=== PATIENT | male | born 1955 | race Caucasian/White ===

== ENCOUNTER 2018-11-26 09:31 | Inpatient (IN) | payer OTHER, MEDICARE ==
[2018-11-26] MEDS ORDERED: HYDROmorphone 1 MG/ML 1 ML SYRINGE IVP STA (10:15)
--- NOTE | 2018-11-26 10:16 | ED ---
Recheck HPI - General Chief Complaint: Recheck/Abnormal Lab/Rx Stated Complaint: abn labs Time Seen by Provider: 11/26/18 09:59 Source: patient, RN notes reviewed, old records reviewed Mode of arrival: ambulatory Limitations: no limitations - History of Present Illness Initial Comments: Patient is a 63-year-old male with history of heart disease, cirrhosis, presents emergency department today with months of abnormal lab values. Patient reports his been feeling very weak, complaining of abdominal pain for the past few months. Patient reports that in September he had a stent placed within his gallbladder. He will be watched remove his gallbladder at that time however Patient was too weak to handle the open surgery. He also reports that he has a history of coronary artery disease. He reports he was supposed to have open heart surgery with bypass however they stated that he was still too weak to do that. Patient states that since being discharged from the [facility] they did remove his stent within gallbladder. Patient states that he' s also had a few episodes of paracentesis within the past few months. Patient complains of poor appetite and general fatigue. He denies any upper respiratory symptoms including cough or congestion. - Related Data Home Medications Medication Instructions Recorded Confirmed Furosemide [Lasix] 40 mg PO DAILY 11/26/18 11/26/18 Ibuprofen [Motrin] 800 mg PO TID PRN 11/26/18 11/26/18 Metoprolol Succinate [Toprol XL] 12.5 mg PO DAILY 11/26/18 11/26/18 Midodrine [ProAmatine] 5 mg PO TID 11/26/18 11/26/18 Mirtazapine [Remeron] 15 mg PO HS 11/26/18 11/26/18 Pantoprazole [Protonix] 40 mg PO BID 11/26/18 11/26/18 Pravastatin Sodium [Pravachol] 20 mg PO HS 11/26/18 11/26/18 Spironolactone 100 mg PO DAILY 11/26/18 11/26/18 Allergies Allergy/AdvReac Type Severity Reaction Status Date / Time codeine Allergy Unknown Verified 11/26/18 09:59 lidocaine Allergy Unknown Verified 11/26/18 09:59 Review of Systems ROS Statement: Those systems with pertinent positive or pertinent negative responses have been documented in the HPI. ROS Other: All systems not noted in ROS Statement are negative. Past Medical History Past Medical History: Coronary Artery Disease (CAD), Liver Disease History of Any Multi-Drug Resistant Organisms: None Reported Past Psychological History: No Psychological Hx Reported Smoking Status: Current every day smoker Past Alcohol Use History: None Reported Past Drug Use History: None Reported General Exam - General Exam Comments Initial Comments: Ill-appearing 63-year-old male. Limitations: no limitations General appearance: alert, in no apparent distress Head exam: Present: atraumatic, normocephalic, normal inspection Eye exam: Present: normal appearance, PERRL, EOMI. Absent: scleral icterus, conjunctival injection, periorbital swelling ENT exam: Present: normal exam, mucous membranes moist Neck exam: Present: normal inspection. Absent: tenderness, meningismus, lymphadenopathy Respiratory exam: Present: normal lung sounds bilaterally. Absent: respiratory distress, wheezes, rales, rhonchi, stridor Cardiovascular Exam: Present: regular rate, normal rhythm, normal heart sounds. Absent: systolic murmur, diastolic murmur, rubs, gallop, clicks GI/Abdominal exam: Present: distended, tenderness (diffuse abdominal tenderness. ), normal bowel sounds. Absent: soft, guarding, rebound, rigid Extremities exam: Present: normal inspection, full ROM, normal capillary refill. Absent: tenderness, pedal edema, joint swelling, calf tenderness Back exam: Present: normal inspection Neurological exam: Present: alert, oriented X3, CN II-XII intact Psychiatric exam: Present: normal affect, normal mood Skin exam: Present: dry, intact. Absent: warm, normal color (jaundice.), rash Course Vital Signs 11/26/18 09:36 Temperature 97.9 F Pulse Rate 105 H Respiratory 18 Rate Blood Pressure 122/77 O2 Sat by Pulse 98 Oximetry Medical Decision Making - Medical Decision Making Patient is a 63-year-old male with a history of cirrhosis presents emergency department today for generalized weakness fatigue abdominal pain and distention for the past few days. [facility] and they [facility] labs. They sent the Patient in today for abnormal lab values including elevated white blood cell count. Lab work was repeated this morning. White blood cell count is elevated 23,000. Patient has evidence of dehydration BUN of 48 crit any 1.53. We did proceed with a computed tomography scan without contrast due to patient' s worsening kidney function. Patient's computed tomography scan does show moderate amount of ascites and hepatosplenomegaly. Had paracentesis but not in the recent past.at this time and concern for SBP with patient's chills diffuse abdominal pain and moderate amount ascites. He was given 1 dose of Rocephin. Patient will be admitted at this time with consult to interventional radiology. I discussed the case with Dr. Leyva Who discussed case with [facility] hospitalist. - Lab Data Result diagrams: 11/26/18 10:30 11/26/18 10:30 Lab Results 11/26/18 11/26/18 11/26/18 Range/Units 10:30 10:30 10:30 WBC 23.4 H (3.8-10.6) k/uL RBC 4.87 (4.30-5.90) m/uL Hgb 13.2 (13.0-17.5) gm/dL Hct 41.3 (39.0-53.0) % MCV 84.9 (80.0-100.0) fL MCH 27.0 (25.0-35.0) pg MCHC 31.8 (31.0-37.0) g/dL RDW 17.4 H (11.5-15.5) % Plt Count 418 (150-450) k/uL Neutrophils % 80 % Lymphocytes % 11 % Monocytes % 7 % Eosinophils % 1 % Basophils % 0 % Neutrophils # 18.7 H (1.3-7.7) k/uL Lymphocytes # 2.6 (1.0-4.8) k/uL Monocytes # 1.6 H (0-1.0) k/uL Eosinophils # 0.2 (0-0.7) k/uL Basophils # 0.1 (0-0.2) k/uL Anisocytosis Slight PT (9.0-12.0) sec INR (<1.2) APTT (22.0-30.0) sec Sodium 132 L (137-145) mmol/L Potassium 5.6 H (3.5-5.1) mmol/L Chloride 98 (98-107) mmol/L Carbon Dioxide 22 (22-30) mmol/L Anion Gap 12 mmol/L BUN 48 H (9-20) mg/dL Creatinine 1.53 H (0.66-1.25) mg/dL Est GFR (CKD-EPI)AfAm 54 (>60 ml/min/1.73 sqM) Est GFR (CKD-EPI)NonAf 47 (>60 ml/min/1.73 sqM) Glucose 114 H (74-99) mg/dL Plasma Lactic Acid Cleve 1.7 (0.7-2.0) mmol/L Calcium 8.9 (8.4-10.2) mg/dL Total Bilirubin 1.6 H (0.2-1.3) mg/dL AST 59 (17-59) U/L ALT 41 (21-72) U/L Alkaline Phosphatase 262 H (38-126) U/L Troponin I (0.000-0.034) ng/mL Total Protein 7.1 (6.3-8.2) g/dL Albumin 3.0 L (3.5-5.0) g/dL Urine Color Urine Appearance (Clear) Urine pH (5.0-8.0) Ur Specific Sterling (1.001-1.035) Urine Protein (Negative) Urine Glucose (UA) (Negative) Urine Ketones (Negative) Urine Blood (Negative) Urine Nitrite (Negative) Urine Bilirubin (Negative) Urine Urobilinogen (<2.0) mg/dL Ur Leukocyte Esterase (Negative) 11/26/18 11/26/18 11/26/18 Range/Units 10:30 10:30 11:35 WBC (3.8-10.6) k/uL RBC (4.30-5.90) m/uL Hgb (13.0-17.5) gm/dL Hct (39.0-53.0) % MCV (80.0-100.0) fL MCH (25.0-35.0) pg MCHC (31.0-37.0) g/dL RDW (11.5-15.5) % Plt Count (150-450) k/uL Neutrophils % % Lymphocytes % % Monocytes % % Eosinophils % % Basophils % % Neutrophils # (1.3-7.7) k/uL Lymphocytes # (1.0-4.8) k/uL Monocytes # (0-1.0) k/uL Eosinophils # (0-0.7) k/uL Basophils # (0-0.2) k/uL Anisocytosis PT 12.0 (9.0-12.0) sec INR 1.2 H (<1.2) APTT 28.1 (22.0-30.0) sec Sodium (137-145) mmol/L Potassium (3.5-5.1) mmol/L Chloride (98-107) mmol/L Carbon Dioxide (22-30) mmol/L Anion Gap mmol/L BUN (9-20) mg/dL Creatinine (0.66-1.25) mg/dL Est GFR (CKD-EPI)AfAm (>60 ml/min/1.73 sqM) Est GFR (CKD-EPI)NonAf (>60 ml/min/1.73 sqM) Glucose (74-99) mg/dL Plasma Lactic Acid Cleve (0.7-2.0) mmol/L Calcium (8.4-10.2) mg/dL Total Bilirubin (0.2-1.3) mg/dL AST (17-59) U/L ALT (21-72) U/L Alkaline Phosphatase (38-126) U/L Troponin I <0.012 (0.000-0.034) ng/mL Total Protein (6.3-8.2) g/dL Albumin (3.5-5.0) g/dL Urine Color Yellow Urine Appearance Clear (Clear) Urine pH 6.0 (5.0-8.0) Ur Specific Sterling 1.006 (1.001-1.035) Urine Protein Negative (Negative) Urine Glucose (UA) Negative (Negative) Urine Ketones Negative (Negative) Urine Blood Negative (Negative) Urine Nitrite Negative (Negative) Urine Bilirubin Negative (Negative) Urine Urobilinogen <2.0 (<2.0) mg/dL Ur Leukocyte Esterase Negative (Negative) 11/26/18 10:40 EKG performed at 1036 shows sinus rhythm with occasional PVCs. Inferior infarct. Abnormal EKG noted. Ventricular rate 91 bpm. Intervals 146 ms. QRS 120 ms. QT QTc is 366/450 ms. - Radiology Data Radiology results: report reviewed Hepatosplenomegaly chronic chronic cirrhotic liver disease. Portal venous hypertension and ascites noted. No acute inflammatory process is seen. Disposition Clinical Impression: Leukocytosis, Ascites, Fatigue, Cirrhosis Disposition: ADMITTED IP TO THIS HOSP Condition: Stable Is patient prescribed a controlled substance at d/c from ED?: No Referrals: [facility],Clinic [Primary Care Provider] - 1-2 days Time of Disposition: 12:36
[2018-11-26] MEDS ORDERED: ONDANSETRON 4 MG/2 ML VIAL IVP STA (10:17)
[2018-11-26] MEDS: SODIUM CHLORIDE 0.9% 1,000 ML IV SCH ×2 (10:24→23:08)
[2018-11-26] MEDS: SODIUM CHLORIDE 0.9% 500 ML 500 ML IV SCH (10:25)
[2018-11-26 10:51] LABS: Anisocytosis Slight; Basophils # (A) 0.1 k/uL (0-0.2); Basophils % (A) 0 %; Eosinophils # (A) 0.2 k/uL (0-0.7); Eosinophils % (A) 1 %; HCT 41.3 % (39.0-53.0); HGB 13.2 gm/dL (13.0-17.5); Lymphocytes # (A) 2.6 k/uL (1.0-4.8); Lymphocytes % (A) 11 %; MCHC 31.8 g/dL (31.0-37.0); MCV 84.9 fL (80.0-100.0); Mean Platelet Volume 6.8; Monocytes # (A) 1.6 k/uL (0-1.0); Monocytes % (A) 7 %; Neutrophils # (A) 18.7 k/uL (1.3-7.7); Neutrophils % (A) 80 %; Platelet Count 418 k/uL (150-450); RBC 4.87 m/uL (4.30-5.90); RDW 17.4 % (11.5-15.5); WBC 23.4 k/uL (3.8-10.6)
[2018-11-26 11:00] LABS: INR 1.2 (<1.2); Partial Thromboplastin Time 28.1 sec (22.0-30.0)
[2018-11-26 11:03] LABS: Calcium 8.9 mg/dL (8.4-10.2); Potassium 5.6 mmol/L (3.5-5.1); Total Bilirubin 1.6 mg/dL (0.2-1.3); Total Protein 7.1 g/dL (6.3-8.2)
--- NOTE | 2018-11-26 12:01 | CT ---
EXAMINATION TYPE: CT abdomen pelvis wo con DATE OF EXAM: 11/26/2018 COMPARISON: None HISTORY: Pain CT DLP: 741 mGycm Examination of the solid and hollow viscera is limited given the lack of contrast. FINDINGS: LUNG BASES: No evidence for nodule. No evidence for infiltrate. LIVER/GB: The gallbladder is unremarkable. No space-occupying hepatic lesion. The liver is enlarged. Peripheral nodular hepatic contour compatible with cirrhotic liver disease. Perihepatic and perigastr ic varices noted. PANCREAS: No pancreatic mass identified. No inflammatory process seen. SPLEEN: Splenomegaly noted with craniocaudal measurement of 14 cm. No intrasplenic lesions seen. ADRENALS: No adrenal nodules identified. No evidence for thickening. KIDNEYS: Renal cystic changes noted. No nephrolithiasis. No hydronephrosis. BOWEL: Appendix has a normal appearance. No evidence of bowel obstruction. No inflammatory process. Lymph nodes: No evidence for adenopathy greater than 1 cm. Abdominal aorta: Atheromatous changes seen. No evidence for aneurysm. Genital organs: No significant abnormality. Other: There is moderate ascites. IMPRESSION: 1. Hepatosplenomegaly with underlying cirrhotic liver disease, portal venous hypertension and ascites . No acute inflammatory process seen.
[2018-11-26 12:13] LABS: Appearance,Urine Clear (Clear); Bilirubin,Urine Negative (Negative); Blood,Urine Negative (Negative); Color,Urine Yellow; Glucose,Urine (UA) Negative (Negative); Ketones,Urine Negative (Negative); Leukocyte Esterase,Urine Negative (Negative); Nitrite,Urine Negative (Negative); Protein,Urine Negative (Negative); Specific Gravity,Urine 1.006 (1.001-1.035); Urobilinogen,Urine <2.0 mg/dL (<2.0)
[2018-11-26] MEDS ORDERED: ONDANSETRON 4 MG/2 ML VIAL IVP PRN (12:36)
[2018-11-26] MEDS ORDERED: NALOXONE 0.4 MG/ML 1 ML VIAL IV PRN (12:36)
[2018-11-26] MEDS: HYDROmorphone 1 MG/ML 1 ML SYRINGE IVP PRN ×3 (13:58→23:17)
[2018-11-26] MEDS: MIDODRINE 5 MG TAB PO SCH (18:00)
[2018-11-26] MEDS: MIRTAZAPINE 15 MG TAB PO SCH (22:13)
[2018-11-26] MEDS: PRAVASTATIN SODIUM 20 MG TAB PO SCH (22:13)
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
[2018-11-27] MEDS: ACETAMINOPHEN TAB 325 MG TAB PO PRN (00:34)
[2018-11-27] MEDS: METOPROLOL SUCCINATE (ER) 25 MG TAB.ER.24H PO SCH ×3 (00:35→20:36)
[2018-11-27] MEDS: HYDROmorphone 1 MG/ML 1 ML SYRINGE IVP PRN ×2 (03:34→13:05)
[2018-11-27] MEDS: PANTOPRAZOLE 40 MG TABLET PO SCH ×2 (07:22→17:39)
[2018-11-27] MEDS: SPIRONOLACTONE 25 MG TAB PO SCH (07:22)
[2018-11-27] MEDS: MIDODRINE 5 MG TAB PO SCH ×3 (07:23→17:39)
[2018-11-27] MEDS: FUROSEMIDE 40 MG TAB PO SCH (07:23)
[2018-11-27] MEDS: HYDROmorphone 0.5 MG/0.5 ML SYRINGE IVP PRN (08:34)
[2018-11-27] MEDS ORDERED: cefTRIAXone 1,000 MG VIAL (IM USE) IM SCH (09:00)
[2018-11-27] MEDS ORDERED: METOPROLOL SUCCINATE (ER) 25 MG TAB.ER.24H PO SCH (09:00)
[2018-11-27] MEDS ORDERED: CHLOROPROCAINE 3% 30 MG/ML 20 ML VIAL MISCELLANE ONE (09:00)
[2018-11-27 09:23] LABS: Potassium 5.7 mmol/L (3.5-5.1)
[2018-11-27 09:24] LABS: Albumin 2.8 g/dL (3.5-5.0); Calcium 8.7 mg/dL (8.4-10.2); Total Protein 6.8 g/dL (6.3-8.2)
[2018-11-27 10:05] LABS: Anisocytosis Slight; HCT 44.9 % (39.0-53.0); HGB 13.4 gm/dL (13.0-17.5); Hypochromasia Slight; MCH 26.5 pg (25.0-35.0); MCHC 29.8 g/dL (31.0-37.0); MCV 89.2 fL (80.0-100.0); Mean Platelet Volume 7.6; Platelet Count 417 k/uL (150-450); RBC 5.03 m/uL (4.30-5.90); RDW 17.3 % (11.5-15.5); WBC 35.9 k/uL (3.8-10.6)
[2018-11-27 11:16] LABS: Band Neutrophils % 3 %; Lymphocytes # (M) 2.51 k/uL (1.0-4.8); Monocytes # (M) 1.08 k/uL (0-1.0); Neutrophils % (M) 88 %; Nucleated Red Blood Cells 0 /100 WBC (0-0); Total Cells Counted 200; Toxic Granulation Present
[2018-11-27 11:17] LABS: Polychromasia Present
[2018-11-27 11:18] LABS: Poikilocytosis (M) Present
--- NOTE | 2018-11-27 13:07 | US ---
EXAMINATION TYPE: US paracentesis abd w/image DATE OF EXAM: 11/27/2018 COMPARISON: NONE HISTORY: Ascites. PROCEDURE: Maximal barrier technique was utilized. The skin overlying a suitable pocket of fluid was localized with ultrasound and the overlying skin was prepped and draped. Ultrasound was utilized with sterile technique. Lidocaine was used for local anesthesia and a skin rama made with a scalpel. Catheter was advanced under direct ultrasound guidance into a suitable pocket of fluid and approximately 15 mL of cloudy olive fluid were removed. Multiple internal septations noted incidentally within the ascitic f luid. Catheter was withdrawn and hemostasis achieved. There is no immediate complication; the patien t is discharged in stable condition. IMPRESSION: STATUS POST ULTRASOUND GUIDED PARACENTESIS FOR DIAGNOSTIC PURPOSES OF ASCITES. THIS PRO CEDURE WAS PERFORMED BY THE UNDERSIGNED.
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
[2018-11-27 15:24] LABS: Color,BF Brown
[2018-11-27 15:25] LABS: Appearance,BF Cloudy; Nucleated Cells, Body Fluid 2500 /uL; RBC, Body Fluid 8600 /uL
[2018-11-27 15:27] LABS: Mononuclear WBC,Body Fluid 4 %; Polynuclear WBC,Body Fluid 96 %; Total Cells Counted,Body Fluid 100
[2018-11-27] MEDS: MIRTAZAPINE 15 MG TAB PO SCH (20:39)
[2018-11-27] MEDS: PRAVASTATIN SODIUM 20 MG TAB PO SCH (20:39)
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
[2018-11-28] MEDS: PIPERACILLIN-TAZOBACTAM 3.375 GM in SODIUM CHLORIDE 0.9% 100 ML IVPB SCH ×3 (00:02→15:27)
[2018-11-28] MEDS: HYDROmorphone 1 MG/ML 1 ML SYRINGE IVP PRN ×5 (01:19→21:35)
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
[2018-11-28] MEDS: SPIRONOLACTONE 25 MG TAB PO SCH (07:57)
[2018-11-28] MEDS: FUROSEMIDE 40 MG TAB PO SCH (07:57)
[2018-11-28] MEDS: METOPROLOL SUCCINATE (ER) 25 MG TAB.ER.24H PO SCH ×2 (07:57→20:10)
[2018-11-28] MEDS: MIDODRINE 5 MG TAB PO SCH ×3 (07:57→18:38)
[2018-11-28] MEDS: PANTOPRAZOLE 40 MG TABLET PO SCH ×2 (07:57→18:38)
[2018-11-28] MEDS ORDERED: cefTRIAXone 2,000 MG in SODIUM CHLORIDE 0.9% 100 ML IVPB SCH (09:00)
[2018-11-28 10:07] LABS: Anisocytosis Slight; HCT 37.3 % (39.0-53.0); HGB 11.4 gm/dL (13.0-17.5); MCH 26.5 pg (25.0-35.0); MCHC 30.5 g/dL (31.0-37.0); Mean Platelet Volume 7.2; Platelet Count 406 k/uL (150-450); RBC 4.29 m/uL (4.30-5.90); RDW 17.2 % (11.5-15.5); WBC 28.4 k/uL (3.8-10.6)
[2018-11-28 10:24] LABS: Albumin 2.4 g/dL (3.5-5.0); Calcium 8.5 mg/dL (8.4-10.2); Potassium 4.8 mmol/L (3.5-5.1); Total Bilirubin 1.8 mg/dL (0.2-1.3)
[2018-11-28 10:56] LABS: Band Neutrophils % 3 %; Lymphocytes # (M) 4.83 k/uL (1.0-4.8); Monocytes # (M) 1.42 k/uL (0-1.0); Neutrophils % (M) 75 %; Nucleated Red Blood Cells 0 /100 WBC (0-0); Total Cells Counted 100
[2018-11-28 11:00] LABS: Toxic Granulation Present
[2018-11-28 11:05] LABS: Poikilocytosis (M) Present
--- NOTE | 2018-11-28 13:18 | P.PN ---
Subjective Progress Note Date: 11/28/18 Principal diagnosis: ascites cirrhosis WBC improved; 28. E. coli UTI. Possible SBP; receiving IV abx. No abdominal complaints. Paracentesis cultures pending. Afebrile. Objective - Vital Signs Vital signs: Vital Signs Temp 98.3 F 11/28/18 07:58 Pulse 83 11/28/18 06:15 Resp 20 11/28/18 05:45 BP 96/60 11/28/18 06:15 Pulse Ox 95 11/28/18 05:45 Intake & Output 11/27/18 11/28/18 11/28/18 18:59 06:59 18:59 Intake Total 800 100 Balance 800 100 Intake: Oral 800 100 Other: Voiding Method Toilet Urinal # Voids 1 2 # Bowel Movements 1 - Exam General appearance: The patient is alert, oriented, in no acute distress. HET: Head is normocephalic and atraumatic. Pupils are equal and reactive. Oropharynx is clear without lesions. Neck: Supple without lymphadenopathy. Trachea midline. Heart: S1 S2. Regular rate and rhythm. Lungs: No crackles or wheezes are heard. Abdomen: Soft, nontender, nondistended with bowel sounds. No peritoneal signs. No palpable organomegaly or masses. Extremities: Normal skin color and turgor. No cyanosis, rash, ulceration, clubbing, or edema. Radial and pedal pulses are 2/4 bilaterally. Neurological: No focal deficits. Strength and sensation are grossly intact. - Labs CBC & Chem 7: 11/28/18 09:50 11/28/18 09:50 Labs: Abnormal Lab Results - Last 24 Hours (Table) 11/28/18 11/28/18 Range/Units 09:50 09:50 WBC 28.4 H (3.8-10.6) k/uL RBC 4.29 L (4.30-5.90) m/uL Hgb 11.4 L (13.0-17.5) gm/dL Hct 37.3 L (39.0-53.0) % MCHC 30.5 L (31.0-37.0) g/dL RDW 17.2 H (11.5-15.5) % Neutrophils # (Manual) 22.10 H (1.3-7.7) k/uL Lymphocytes # (Manual) 4.83 H (1.0-4.8) k/uL Monocytes # (Manual) 1.42 H (0-1.0) k/uL Sodium 131 L (137-145) mmol/L Carbon Dioxide 20 L (22-30) mmol/L BUN 35 H (9-20) mg/dL Glucose 169 H (74-99) mg/dL Total Bilirubin 1.8 H (0.2-1.3) mg/dL Alkaline Phosphatase 196 H (38-126) U/L Total Protein 6.0 L (6.3-8.2) g/dL Albumin 2.4 L (3.5-5.0) g/dL Microbiology - Last 24 Hours (Table) 11/26/18 10:30 Blood Culture - Preliminary Blood No Growth after 48 hours 11/26/18 11:35 Urine Culture - Final Urine,Clean Catch Escherichia coli 11/26/18 12:30 Gram Stain - Preliminary Ascites Fluid Body Fluid Culture - Preliminary 11/27/18 01:10 Blood Culture - Preliminary Blood No Growth after 24 hours 11/27/18 00:29 Blood Culture - Preliminary Blood No Growth after 24 hours Assessment and Plan (1) Alcoholic cirrhosis of liver with ascites Current Visit: Yes Status: Acute Code(s): K70.31 - ALCOHOLIC CIRRHOSIS OF LIVER WITH ASCITES SNOMED Code(s): 543371773 (2) Coronary artery disease Current Visit: Yes Status: Acute Code(s): I25.10 - ATHSCL HEART DISEASE OF [place] CORONARY ARTERY W/O ANG PCTRS SNOMED Code(s): 07170578 (3) Portal hypertension Current Visit: Yes Status: Acute Code(s): K76.6 - PORTAL HYPERTENSION SNOMED Code(s): 75762194 (4) Fatigue Current Visit: Yes Status: Acute Code(s): R53.83 - OTHER FATIGUE SNOMED Code(s): 16423819 (5) Leukocytosis Current Visit: Yes Status: Acute Code(s): D72.829 - ELEVATED WHITE BLOOD CELL COUNT, UNSPECIFIED SNOMED Code(s): 328319225 (6) History of ETOH abuse Current Visit: Yes Status: Acute Code(s): Z87.898 - PERSONAL HISTORY OF OTHER SPECIFIED CONDITIONS SNOMED Code(s): 112220184 (7) E. coli UTI Current Visit: Yes Status: Acute Code(s): N39.0 - URINARY TRACT INFECTION, SITE NOT SPECIFIED; B96.20 - UNSP ESCHERICHIA COLI THE CAUSE OF DISEASES CLASSD ELSR SNOMED Code(s): 276330140 Plan: 1. Small amount of fluid was obtained from paracentesis cultures are pending. Continue with broad-spectrum antibiotics. CBC CMP daily. We'll follow with you. Low-salt diet. assessment and plan a care discussed with Dr. Dowd
--- NOTE | 2018-11-28 17:02 | P.PN ---
Subjective Progress Note Date: 11/28/18 - Patient says his belly is hurting - He looks a little drowsy and lethargic but was alert oriented - He does not complain of any chest pain or racing heart Objective - Vital Signs Vital signs: Vital Signs Temp 98.7 F 11/28/18 14:04 Pulse 104 H 11/28/18 14:04 Resp 20 11/28/18 16:00 BP 104/67 11/28/18 14:04 Pulse Ox 95 11/28/18 14:04 Intake & Output 11/27/18 11/28/18 11/28/18 18:59 06:59 18:59 Intake Total 800 100 750 Output Total 900 Balance 800 100 -150 Intake: Oral 800 100 750 Output: Urine 900 Other: Voiding Method Toilet Urinal # Voids 1 2 4 # Bowel Movements 1 - Exam On exam, alert and oriented x3 but was drowsy and lethargic HEENT: Conjunctivae normal. eyes normal. NECK: No JVD. No thyroid enlargement. No LNs CARDIOVASCULAR: S1, S2 muffled. No murmur RESPIRATION: Breath sounds diminished in the bases. No rhonchi or crackles. No bronchial breathing. ABDOMEN: Soft, tender and distended he has dressing applied in the left low quadrant status post diagnostic paracentesis yesterday LEGS: No edema. no swelling NERVOUS SYSTEM: Cranial N 2-12 grossly normal. Moves all 4 limbs. No focal deficits. No sensory deficit. No signs of cerebellar dysfucntion. Skin: no ulcer no rash - Labs CBC & Chem 7: 11/28/18 09:50 11/28/18 09:50 Labs: Abnormal Lab Results - Last 24 Hours (Table) 11/28/18 11/28/18 Range/Units 09:50 09:50 WBC 28.4 H (3.8-10.6) k/uL RBC 4.29 L (4.30-5.90) m/uL Hgb 11.4 L (13.0-17.5) gm/dL Hct 37.3 L (39.0-53.0) % MCHC 30.5 L (31.0-37.0) g/dL RDW 17.2 H (11.5-15.5) % Neutrophils # (Manual) 22.10 H (1.3-7.7) k/uL Lymphocytes # (Manual) 4.83 H (1.0-4.8) k/uL Monocytes # (Manual) 1.42 H (0-1.0) k/uL Sodium 131 L (137-145) mmol/L Carbon Dioxide 20 L (22-30) mmol/L BUN 35 H (9-20) mg/dL Glucose 169 H (74-99) mg/dL Total Bilirubin 1.8 H (0.2-1.3) mg/dL Alkaline Phosphatase 196 H (38-126) U/L Total Protein 6.0 L (6.3-8.2) g/dL Albumin 2.4 L (3.5-5.0) g/dL Microbiology - Last 24 Hours (Table) 11/26/18 10:30 Blood Culture - Preliminary Blood No Growth after 48 hours 11/26/18 11:35 Urine Culture - Final Urine,Clean Catch Escherichia coli 11/26/18 12:30 Gram Stain - Preliminary Ascites Fluid Body Fluid Culture - Preliminary 11/27/18 01:10 Blood Culture - Preliminary Blood No Growth after 24 hours 11/27/18 00:29 Blood Culture - Preliminary Blood No Growth after 24 hours Assessment and Plan Assessment: - Abdominal pain rule out his BP - UTI with E. coli - History of cirrhosis - Patient lethargy and drowsy rule out hepatic encephalopathy - Leukocytosis Plan - We'll get a stat ammonia level. Lethargy could probably be because of the Dilaudid patient received. His ammonia is high patient might need to be started on lactulose - Continue antibiotics for now - Awaiting culture from the paracentesis fluid Time with Patient: Greater than 30
[2018-11-28] MEDS: MIRTAZAPINE 15 MG TAB PO SCH (20:11)
[2018-11-28] MEDS: PRAVASTATIN SODIUM 20 MG TAB PO SCH (20:12)
[2018-11-29] MEDS: PIPERACILLIN-TAZOBACTAM 3.375 GM in SODIUM CHLORIDE 0.9% 100 ML IVPB SCH ×4 (00:50→23:21)
[2018-11-29] MEDS: HYDROmorphone 1 MG/ML 1 ML SYRINGE IVP PRN ×5 (01:09→18:09)
--- NOTE | 2018-11-29 07:49 | PN ---
PROGRESS NOTE DATE OF SERVICE: 11/28/2018 REASON FOR FOLLOWUP: Peritonitis. INTERVAL HISTORY: The patient is currently afebrile. He has been breathing comfortably. Denies having any chest pain or cough. Abdominal pain is currently controlled. No nausea or vomiting. Did have some diarrhea. PHYSICAL EXAMINATION: On examination, blood pressure 100/64 with a pulse of 91, temperature 98.4. He is 95% on room air. General description is an elderly male lying in bed in no distress. RESPIRATORY SYSTEM: Unlabored breathing, clear to auscultation anteriorly. HEART: S1, S2. Regular rate and rhythm. ABDOMEN: Soft, mildly distended, . EXTREMITIES: Edema of feet. LABS: Hemoglobin 11.4, white count 28.4 with a BUN of 35, creatinine 1.07. UA has been negative. Peritoneal fluid cultures currently pending. DIAGNOSTIC IMPRESSION AND PLAN: Patient with significant leukocytosis and abdominal pain, source is likely peritonitis and underlying history of cirrhosis. The patient is currently covered with Zosyn. Will wait for the culture to finalize. Continue with supportive care. MMODL / IJN: [id number] /
[2018-11-29] MEDS: MIDODRINE 5 MG TAB PO SCH ×3 (08:46→16:57)
[2018-11-29] MEDS: METOPROLOL SUCCINATE (ER) 25 MG TAB.ER.24H PO SCH ×2 (08:47→20:29)
[2018-11-29] MEDS: FUROSEMIDE 40 MG TAB PO SCH (08:48)
[2018-11-29] MEDS: SPIRONOLACTONE 25 MG TAB PO SCH (08:48)
[2018-11-29] MEDS: PANTOPRAZOLE 40 MG TABLET PO SCH ×2 (08:50→16:57)
--- NOTE | 2018-11-29 09:01 | PN ---
PROGRESS NOTE DATE OF SERVICE: 11/28/2018 REASON FOR FOLLOWUP: Peritonitis. INTERVAL HISTORY: The patient is currently afebrile. He has been breathing comfortably. Denies having any chest pain or cough. Abdominal pain is currently controlled. No nausea or vomiting. Did have some diarrhea. PHYSICAL EXAMINATION: Blood pressure 100/64 with a pulse of 90, temperature 98.4. He is 95% on room air. General description is an elderly male, lying in bed in no distress. RESPIRATORY SYSTEM: Unlabored breathing, clear to auscultation anteriorly. HEART: S1, S2. Regular rate and rhythm. ABDOMEN: Soft, nondistended, nontender. EXTREMITIES: No edema of the feet. LABS: Hemoglobin 9 .4, white count of 28.4 with a BUN of 35, creatinine 1.07. UA has been negative. Peritoneal fluid cultures currently pending. DIAGNOSTIC IMPRESSION AND PLAN: Patient with significant leukocytosis, abdominal pain, source is likely peritonitis and respiratory underlying history of cirrhosis. The patient is currently covered with Zosyn while awaiting for the culture to finalize. Continue supportive care. MMODL / IJN: [id number] /
[2018-11-29 09:08] LABS: Anisocytosis Slight; HGB 11.7 gm/dL (13.0-17.5); MCH 27.5 pg (25.0-35.0); MCHC 31.8 g/dL (31.0-37.0); MCV 86.5 fL (80.0-100.0); Mean Platelet Volume 6.2; Platelet Count 403 k/uL (150-450); RBC 4.27 m/uL (4.30-5.90); WBC 24.6 k/uL (3.8-10.6)
[2018-11-29 09:12] LABS: Anion Gap 6 mmol/L; Blood Urea Nitrogen 27 mg/dL (9-20); Calcium 8.4 mg/dL (8.4-10.2); Carbon Dioxide 25 mmol/L (22-30); Chloride 100 mmol/L (98-107); Glucose 78 mg/dL (74-99); Potassium 4.6 mmol/L (3.5-5.1); Sodium 131 mmol/L (137-145)
[2018-11-29] MEDS: ACETAMINOPHEN TAB 325 MG TAB PO PRN (09:34)
--- NOTE | 2018-11-29 12:42 | CDI ---
Documentation Clarification Form Date: 11/29/2018 12:21:54 PM From: Jayda Rain RN, CCDS Admit Date: 11/26/2018 1:33:00 PM Patient Name: Mihai Nina Visit Number: [id number] Discharge Date: ATTENTION: The Clinical Documentation Specialists (CDI) and [facility] Coding Staff appreciate your assistance in clarifying documentation. Please respond to the clarification below the line at the bottom and electronically sign. The CDI & [facility] Coding staff will review the response and follow-up if needed. Please note: Queries are made part of the Legal Health Record. If you have any questions, please contact the author of this message via ITS. Dr. James Chandler The diagnosis Sepsis was documented in the record , but is not consistently noted in subsequent documentation. History/Risk Factors: 63 yr old male presents to the ED for abnormal lab values and abdominal pain. Medical Hx Alcoholic liver cirrhosis , recurrent ascites CAD HTN Clinical Indicators: On admission VSS 122/77 105 97.9 18 98% ra, WBC 23.4, UA culture Ecoli; Body fluid culture few polymorph nuclear Leukocytes Sepsis was documented by internal medicine in PN 11/27/2018 Treatment: Consults ID, GI, Antibiotics Zosyn Please clarify if the diagnosis of Sepsis was: Present/active this admission Treated and resolved this admission Ruled out Other, please specify Clinically unable to determine (Last Revision: July 2018-New) MTDD
--- NOTE | 2018-11-29 13:12 | CDI ---
Documentation Clarification Form Date: 11/29/2018 12:21:54 PM From: Jayda Rain RN, CCDS Admit Date: 11/26/2018 1:33:00 PM Patient Name: Mihai Nina Visit Number: [id number] Discharge Date: ATTENTION: The Clinical Documentation Specialists (CDI) and [facility] Coding Staff appreciate your assistance in clarifying documentation. Please respond to the clarification below the line at the bottom and electronically sign. The CDI & [facility] Coding staff will review the response and follow-up if needed. Please note: Queries are made part of the Legal Health Record. If you have any questions, please contact the author of this message via ITS. Dr. James Chandler The diagnosis Sepsis was documented in the record , but is not consistently noted in subsequent documentation. History/Risk Factors: 63 yr old male presents to the ED for abnormal lab values and abdominal pain. Medical Hx Alcoholic liver cirrhosis , recurrent ascites CAD HTN Clinical Indicators: On admission VSS 122/77 105 97.9 18 98% ra, WBC 23.4, UA culture Ecoli; Body fluid culture few polymorph nuclear Leukocytes Sepsis was documented by internal medicine in [place] 11/27/2018 Treatment: Consults ID, GI, Antibiotics Zosyn Please clarify if the diagnosis of Sepsis was: Present/active this admission Treated and resolved this admission Ruled out Other, please specify Clinically unable to determine (Last Revision: July 2018-New) MTDD
--- NOTE | 2018-11-29 16:20 | P.PN ---
Subjective Progress Note Date: 11/29/18 Principal diagnosis: Ascites, cirrhosis Patient seated bedside. No nausea, vomiting or signs or symptoms of GI bleeding. Asking for diet to be advanced. Objective - Vital Signs Vital signs: Vital Signs Temp 97.9 F 11/29/18 15:00 Pulse 90 11/29/18 15:00 Resp 20 11/29/18 15:03 BP 99/63 11/29/18 15:00 Pulse Ox 95 11/29/18 15:00 Intake & Output 11/28/18 11/29/18 11/29/18 18:59 06:59 18:59 Intake Total 1230 Output Total 1400 550 Balance -170 -550 Intake: Oral 1230 Output: Urine 1400 550 Other: Voiding Method Toilet Urinal # Voids 4 0 # Bowel Movements 1 0 - Exam On physical examination, patient appears comfortable in no apparent distress. HEAD: Normocephalic, atraumatic. EYES: No scleral icterus. No conjunctival injection. MOUTH: No lesions, tongue midline. NECK: Trachea midline, no gross abnormalities. CHEST: Clear to auscultation with no wheezing or rhonchi appreciated. HEART: Regular rate and rhythm. ABDOMEN: Soft, obese. Bowel sounds are positive. No organomegaly. No guarding or rigidity. EXTREMITIES: No pedal edema. SKIN: No rashes, no jaundice. NEUROLOGIC: Alert and oriented. - Labs CBC & Chem 7: 11/29/18 07:59 11/29/18 07:59 Labs: Abnormal Lab Results - Last 24 Hours (Table) 11/29/18 11/29/18 Range/Units 07:59 07:59 WBC 24.6 H (3.8-10.6) k/uL RBC 4.27 L (4.30-5.90) m/uL Hgb 11.7 L (13.0-17.5) gm/dL Hct 37.0 L (39.0-53.0) % RDW 17.0 H (11.5-15.5) % Sodium 131 L (137-145) mmol/L BUN 27 H (9-20) mg/dL Microbiology - Last 24 Hours (Table) 11/26/18 10:30 Blood Culture - Preliminary Blood No Growth after 72 hours 11/27/18 01:10 Blood Culture - Preliminary Blood No Growth after 48 hours 11/27/18 00:29 Blood Culture - Preliminary Blood No Growth after 48 hours 11/26/18 12:30 Gram Stain - Preliminary Ascites Fluid Body Fluid Culture - Preliminary Assessment and Plan (1) Alcoholic cirrhosis of liver with ascites Narrative/Plan: Patient reporting abdominal pain. He did have paracentesis however only 15 mL of fluid removed and based on fluid studies this was a traumatic tap that was grossly bloody. He is on antibiotic treatment due to underlying UTI with improvement of his white blood cell count. Current Visit: Yes Status: Acute Code(s): K70.31 - ALCOHOLIC CIRRHOSIS OF LIVER WITH ASCITES SNOMED Code(s): 829884377 (2) History of ETOH abuse Current Visit: Yes Status: Acute Code(s): Z87.898 - PERSONAL HISTORY OF OTHER SPECIFIED CONDITIONS SNOMED Code(s): 046081908 Plan: Supportive care Okay for diet, will advance to low sodium regular diet Alcohol abstinence Continue antibiotic therapy Patient will need follow-up for HCC screening and continue management of cirrhosis as outpatient Thank you for allowing us to participate in the care of the patient we will continue to follow
[2018-11-29] MEDS: NICOTINE 21MG/24HR PATCH TRANSDERM SCH ×2 (18:08→21:44)
[2018-11-29] MEDS: MIRTAZAPINE 15 MG TAB PO SCH (20:29)
[2018-11-29] MEDS: PRAVASTATIN SODIUM 20 MG TAB PO SCH (20:29)
--- NOTE | 2018-11-29 21:58 | P.PN ---
Subjective 11/28 - Patient says his belly is hurting - He looks a little drowsy and lethargic but was alert oriented - He does not complain of any chest pain or racing heart 11/29 Was lying in the bed when i examined him wants to eat says is passing gases c/o abd pain which he says is chronic Objective - Vital Signs Vital signs: Vital Signs Temp 97.9 F 11/29/18 15:00 Pulse 86 11/29/18 20:03 Resp 17 11/29/18 20:03 BP 106/65 11/29/18 20:03 Pulse Ox 97 11/29/18 20:03 Intake & Output 11/29/18 11/29/18 11/30/18 06:59 18:59 06:59 Output Total 550 800 Balance -550 -800 Output: Urine 550 800 Other: Voiding Method Toilet Bedside Commode Urinal # Voids 0 # Bowel Movements 0 - Exam On exam, alert and oriented x3 but was drowsy and lethargic HEENT: Conjunctivae normal. eyes normal. NECK: No JVD. No thyroid enlargement. No LNs CARDIOVASCULAR: S1, S2 muffled. No murmur RESPIRATION: Breath sounds diminished in the bases. No rhonchi or crackles. No bronchial breathing. ABDOMEN: Soft, tender and distended he has dressing applied in the left low quadrant status post diagnostic paracentesis LEGS: No edema. no swelling NERVOUS SYSTEM: Cranial N 2-12 grossly normal. Moves all 4 limbs. No focal deficits. No sensory deficit. No signs of cerebellar dysfucntion. Skin: no ulcer no rash - Labs CBC & Chem 7: 11/29/18 07:59 11/29/18 07:59 Labs: Abnormal Lab Results - Last 24 Hours (Table) 11/29/18 11/29/18 Range/Units 07:59 07:59 WBC 24.6 H (3.8-10.6) k/uL RBC 4.27 L (4.30-5.90) m/uL Hgb 11.7 L (13.0-17.5) gm/dL Hct 37.0 L (39.0-53.0) % RDW 17.0 H (11.5-15.5) % Sodium 131 L (137-145) mmol/L BUN 27 H (9-20) mg/dL Microbiology - Last 24 Hours (Table) 11/26/18 10:30 Blood Culture - Preliminary Blood No Growth after 72 hours 11/27/18 01:10 Blood Culture - Preliminary Blood No Growth after 48 hours 11/27/18 00:29 Blood Culture - Preliminary Blood No Growth after 48 hours 11/26/18 12:30 Gram Stain - Preliminary Ascites Fluid Body Fluid Culture - Preliminary Assessment and Plan Assessment: - Abdominal pain rule out his BP - UTI with E. coli - History of cirrhosis - Patient lethargy and drowsy rule out hepatic encephalopathy - Leukocytosis Plan - ok to advance diet - parcentesis fluid not showing any growth - Possibly will discharge him tomorrow if he tolerates the diet - continue current managment - Will f/u Time with Patient: Greater than 30
[2018-11-30] MEDS: HYDROmorphone 1 MG/ML 1 ML SYRINGE IVP PRN ×7 (00:48→22:35)
--- NOTE | 2018-11-30 04:40 | PN ---
PROGRESS NOTE DATE OF SERVICE: 11/29/2018 REASON FOR FOLLOWUP: Spontaneous bacterial peritonitis. INTERVAL HISTORY: The patient is currently afebrile, has been breathing comfortably. The patient's abdominal pain has improved. No nausea, no vomiting. No chest pain, shortness of breath or cough. PHYSICAL EXAMINATION: Blood pressure 106/55 with a pulse of 86, temperature 97.9, he is 97% on room air. GENERAL DESCRIPTION: An elderly male up in the bed in no distress. RESPIRATORY SYSTEM: Unlabored breathing, decreased breath sounds in the bases, no wheeze. HEART: S1, S2. Regular rate and rhythm. ABDOMEN: Soft, mildly distended. No guarding, no rigidity. LABS: Hemoglobin is 11.7 with white count 24.6, BUN of 27, creatinine 0.90. Blood culture negative. Abdominal cultures currently pending. DIAGNOSTIC IMPRESSION AND PLAN: Patient admitted to the hospital abdominal pain and significantly elevated white count. The patient did have positive fluid on the paracentesis. Currently covered with Zosyn, will continue for now while waiting for the culture to finalize. Continue supportive care. MMODL / IJN: [id number] /
[2018-11-30] MEDS: ACETAMINOPHEN TAB 325 MG TAB PO PRN (06:56)
[2018-11-30] MEDS: PIPERACILLIN-TAZOBACTAM 3.375 GM in SODIUM CHLORIDE 0.9% 100 ML IVPB SCH ×2 (08:03→16:10)
[2018-11-30] MEDS: SPIRONOLACTONE 25 MG TAB PO SCH (08:03)
[2018-11-30] MEDS: MIDODRINE 5 MG TAB PO SCH ×3 (08:04→16:10)
[2018-11-30] MEDS: FUROSEMIDE 40 MG TAB PO SCH (08:04)
[2018-11-30] MEDS: METOPROLOL SUCCINATE (ER) 25 MG TAB.ER.24H PO SCH ×2 (08:04→20:25)
[2018-11-30] MEDS: NICOTINE 21MG/24HR PATCH TRANSDERM SCH (08:04)
[2018-11-30] MEDS: PANTOPRAZOLE 40 MG TABLET PO SCH ×2 (08:04→16:10)
--- NOTE | 2018-11-30 12:17 | PN ---
PROGRESS NOTE DATE OF DICTATION: 11/30/2018 Patient is a 63-year-old pleasant white male with history of heavy alcohol abuse, admitted to the hospital with abdominal pain, abdominal distention and mild ascites. He was noted to have severe leukocytosis, possibly related to spontaneous bacterial peritonitis, and he has been started on broad-spectrum antibiotics and is being followed by Dr. Luna from Infectious Disease. At the time of admission to the hospital, WBC was 35.9, and yesterday it was 24.6. CBC from today is still pending at the time of this dictation. The patient continues to complain of diffuse abdominal pain. He denies any nausea or vomiting. He is on a regular diet, tolerating well. Denies any rectal bleeding or melena. PHYSICAL EXAMINATION: He appears comfortable. No apparent distress. VITAL SIGNS: Stable. Blood pressure is 97/60, pulse rate 84, temperature 98.6. HEENT EXAMINATION: Unremarkable. Conjunctivae pink. Sclerae anicteric. Oral cavity no lesions. NECK: No JVD or lymph node enlargement. CHEST: Clear to auscultation. HEART: Regular rate and rhythm. ABDOMEN: Soft. Mild diffuse tenderness but no rebound or rigidity. There was no obvious free fluid noted. EXTREMITIES: No pedal edema. SKIN: No rashes. NEUROLOGIC: Alert and oriented x3. No focal deficits. LABS: Labs from yesterday showed WBC 24.6, hemoglobin 11.7, platelets 403. BUN and creatinine were 27 and 0.9, respectively. He had paracentesis, and 15 mL of fluid was aspirated. Peritoneal fluid WBC count was 96, but RBC count was 8600. Preliminary results from culture: No growth in 24 hours. IMPRESSION: 1. Diffuse abdominal pain, mild ascites, possible spontaneous bacterial peritonitis, on broad-spectrum antibiotics with Zosyn. Leukocytosis is gradually improving; however, patient continues to complain of abdominal pain but clinically does not have any significant ascites. 2. Alcoholic cirrhosis of the liver which appears to be well compensated. 3. History of alcohol abuse. RECOMMENDATIONS: 1. Continue with broad-spectrum antibiotics. 2. Await CBC from today. 3. Educated him about abstinence from alcohol. 4. Will follow him closely during his hospital stay. Thank you for this consultation. MMODL / IJN: [id number] /
[2018-11-30 14:55] LABS: Anisocytosis Slight; Basophils # (A) 0.1 k/uL (0-0.2); Basophils % (A) 0 %; Eosinophils # (A) 0.3 k/uL (0-0.7); Eosinophils % (A) 1 %; HGB 12.4 gm/dL (13.0-17.5); Hypochromasia Slight; Lymphocytes # (A) 2.6 k/uL (1.0-4.8); Lymphocytes % (A) 11 %; MCH 27.5 pg (25.0-35.0); MCHC 31.1 g/dL (31.0-37.0); MCV 88.4 fL (80.0-100.0); Mean Platelet Volume 6.5; Monocytes # (A) 1.3 k/uL (0-1.0); Monocytes % (A) 5 %; Neutrophils # (A) 18.7 k/uL (1.3-7.7); Neutrophils % (A) 80 %; Platelet Count 461 k/uL (150-450); RBC 4.52 m/uL (4.30-5.90); RDW 17.2 % (11.5-15.5); WBC 23.7 k/uL (3.8-10.6)
[2018-11-30] MEDS: PRAVASTATIN SODIUM 20 MG TAB PO SCH (20:25)
[2018-11-30] MEDS: MIRTAZAPINE 15 MG TAB PO SCH (20:26)
--- NOTE | 2018-11-30 23:38 | PN ---
PROGRESS NOTE DATE OF SERVICE: 11/30/2018. REASON FOR FOLLOWUP: Peritonitis. INTERVAL HISTORY: The patient is afebrile, has been breathing comfortably. The patient denies having any chest pain or shortness of breath, cough or abdominal pain. No nausea, vomiting or diarrhea. PHYSICAL EXAMINATION: Blood pressure is 108/59 with a pulse of 90. Temperature 97.3. He is 98% on room air. General description is an elderly male lying in bed in no distress. Respiratory system: Unlabored breathing. Clear to auscultation anteriorly. Heart S1, S2. Regular rate and rhythm. ABDOMEN: Soft, mild distention. No guarding or rigidity. LABS: Hemoglobin 12.4, white count 3.7. culture with a gram-negative bacilli. Blood culture negative. DIAGNOSTIC IMPRESSION AND PLAN: Patient with spontaneous bacterial peritonitis. Abdominal culture showing gram- negative bacilli. The patient will benefit from a paracentesis, therapeutic, large volume to help heal infection. Continue the patient on Zosyn while waiting for sensitivity of this gram-negative. Continue supportive care. MMODL / IJN: [id number] /
[2018-12-01] MEDS: PIPERACILLIN-TAZOBACTAM 3.375 GM in SODIUM CHLORIDE 0.9% 100 ML IVPB SCH ×4 (00:37→23:06)
[2018-12-01] MEDS: HYDROmorphone 1 MG/ML 1 ML SYRINGE IVP PRN ×7 (02:59→23:05)
[2018-12-01] MEDS: ACETAMINOPHEN TAB 325 MG TAB PO PRN (06:11)
[2018-12-01] MEDS: PANTOPRAZOLE 40 MG TABLET PO SCH ×2 (07:52→15:39)
[2018-12-01] MEDS: FUROSEMIDE 40 MG TAB PO SCH (07:52)
[2018-12-01] MEDS: MIDODRINE 5 MG TAB PO SCH ×3 (07:52→15:39)
[2018-12-01] MEDS: NICOTINE 21MG/24HR PATCH TRANSDERM SCH (07:52)
[2018-12-01] MEDS: METOPROLOL SUCCINATE (ER) 25 MG TAB.ER.24H PO SCH ×2 (07:52→19:56)
[2018-12-01] MEDS: SPIRONOLACTONE 25 MG TAB PO SCH (07:53)
[2018-12-01 08:12] LABS: Anisocytosis Slight; HCT 38.1 % (39.0-53.0); HGB 11.7 gm/dL (13.0-17.5); MCH 26.8 pg (25.0-35.0); MCHC 30.9 g/dL (31.0-37.0); Mean Platelet Volume 6.7; Platelet Count 456 k/uL (150-450); RBC 4.38 m/uL (4.30-5.90); RDW 17.1 % (11.5-15.5); WBC 23.6 k/uL (3.8-10.6)
[2018-12-01 08:24] LABS: Anion Gap 6 mmol/L; Blood Urea Nitrogen 24 mg/dL (9-20); Calcium 8.3 mg/dL (8.4-10.2); Carbon Dioxide 26 mmol/L (22-30); Chloride 101 mmol/L (98-107); Glucose 101 mg/dL (74-99); Potassium 4.9 mmol/L (3.5-5.1); Sodium 133 mmol/L (137-145)
--- NOTE | 2018-12-01 10:42 | PN ---
PROGRESS NOTE DATE OF SURGERY: 12/01/2018 The patient is a 63-year-old pleasant white male with history of alcohol cirrhosis admitted to the hospital with abdominal pain, ascites and abdominal distention. He was noted to have leukocytosis, related to spontaneous bacterial peritonitis. He did have diagnostic paracentesis done and 15 mL of fluid was aspirated. Cultures showing gram- negative bacilli. Presently on Zosyn, gradually improving. He continues to complain of abdominal pain and abdominal distention. No fever, chills, or night sweats. PHYSICAL EXAMINATION: Appears comfortable. No apparent distress. Vital signs is stable. Blood pressure 124/74, pulse rate 96, temperature 98.3. HEENT examination unremarkable. Conjunctivae pink. Sclerae anicteric. Oral cavity no lesions. Neck no jugular venous distention or lymph node enlargement. Chest was clear to auscultation. HEART: Regular rate and rhythm. ABDOMEN: Soft, it was distended. There was some free fluid noted. There was mild diffuse tenderness. Extremities: No pedal edema. Skin no rashes. NEUROLOGIC: Alert and oriented x3. No focal deficits. LABS: From today WBC 23.6, hemoglobin 11.7, platelets are 456. IMPRESSION: 1. Ascites/spontaneous bacterial peritonitis. Ascitic fluid showing gram-negative bacilli. On Zosyn, day #4. Still continues to have persistent leukocytosis, but overall clinical condition is gradually improving. 2. Cirrhosis secondary to alcohol use. 3. Ascites related to portal hypertension. RECOMMENDATIONS: 1. Continue with broad-spectrum antibiotics. 2. Agree with large volume paracentesis tomorrow. 3. Continue with current diuretic regimen with Lasix 40 mg daily and spironolactone 100 mg daily. We will follow with you. Thank you for this consultation. MMODL / IJN: [id number] /
--- NOTE | 2018-12-01 12:53 | P.PN ---
Subjective Progress Note Date: 11/30/18 2 - Patient says his belly is hurting - He looks a little drowsy and lethargic but was alert oriented - He does not complain of any chest pain or racing heart 11/29 Was lying in the bed when i examined him wants to eat says is passing gases c/o abd pain which he says is chronic 11/30/2018 Patient still complaining of pain in the belly. No no chest pain or racing heart Objective - Vital Signs Vital signs: Vital Signs Temp 98.3 F 12/01/18 07:00 Pulse 96 12/01/18 07:00 Resp 16 12/01/18 07:00 BP 124/74 12/01/18 07:00 Pulse Ox 97 12/01/18 07:00 Intake & Output 11/30/18 12/01/18 12/01/18 18:59 06:59 18:59 Intake Total 400 Balance 400 Intake: Oral 400 Other: Voiding Method Bedside Commode Bedside Commode Urinal Urinal # Voids 2 2 5 # Bowel Movements 0 - Exam On exam, alert and oriented x3 but was drowsy and lethargic HEENT: Conjunctivae normal. eyes normal. NECK: No JVD. No thyroid enlargement. No LNs CARDIOVASCULAR: S1, S2 muffled. No murmur RESPIRATION: Breath sounds diminished in the bases. No rhonchi or crackles. No bronchial breathing. ABDOMEN: Soft, tender and distended he has dressing applied in the left low quadrant status post diagnostic paracentesis LEGS: No edema. no swelling NERVOUS SYSTEM: Cranial N 2-12 grossly normal. Moves all 4 limbs. No focal deficits. No sensory deficit. No signs of cerebellar dysfucntion. Skin: no ulcer no rash - Labs CBC & Chem 7: 12/01/18 07:23 12/01/18 07:23 Labs: Abnormal Lab Results - Last 24 Hours (Table) 11/30/18 12/01/18 12/01/18 Range/Units 14:18 07:23 07:23 WBC 23.7 H 23.6 H (3.8-10.6) k/uL Hgb 12.4 L 11.7 L (13.0-17.5) gm/dL Hct 38.1 L (39.0-53.0) % MCHC 30.9 L (31.0-37.0) g/dL RDW 17.2 H 17.1 H (11.5-15.5) % Plt Count 461 H 456 H (150-450) k/uL Neutrophils # 18.7 H (1.3-7.7) k/uL Monocytes # 1.3 H (0-1.0) k/uL Sodium 133 L (137-145) mmol/L BUN 24 H (9-20) mg/dL Glucose 101 H (74-99) mg/dL Calcium 8.3 L (8.4-10.2) mg/dL Microbiology - Last 24 Hours (Table) 11/26/18 10:30 Blood Culture - Preliminary Blood No Growth after 120 hours 11/27/18 01:10 Blood Culture - Preliminary Blood No Growth after 96 hours 11/27/18 00:29 Blood Culture - Preliminary Blood No Growth after 96 hours 11/26/18 12:30 Gram Stain - Preliminary Ascites Fluid Body Fluid Culture - Preliminary Gram Neg Bacilli Assessment and Plan Assessment: - Abdominal pain rule out his BP - UTI with E. coli - History of cirrhosis - Patient lethargy and drowsy rule out hepatic encephalopathy - Leukocytosis Plan - ok to advance diet - Discussed the case with ID, recommended therapeutic paracentesis - We'll continue medications for now - We'll continue to monitor Time with Patient: Greater than 30
--- NOTE | 2018-12-01 12:54 | P.PN ---
Subjective 11/28 - Patient says his belly is hurting - He looks a little drowsy and lethargic but was alert oriented - He does not complain of any chest pain or racing heart 11/29 Was lying in the bed when i examined him wants to eat says is passing gases c/o abd pain which he says is chronic 11/30/2018 Patient still complaining of pain in the belly. No no chest pain or racing heart 12/01/2018 Patient lying on the bed Saying that he is doing good Still complaining of abdominal distention and pain Objective - Vital Signs Vital signs: Vital Signs Temp 98.3 F 12/01/18 07:00 Pulse 96 12/01/18 07:00 Resp 16 12/01/18 07:00 BP 124/74 12/01/18 07:00 Pulse Ox 97 12/01/18 07:00 Intake & Output 11/30/18 12/01/18 12/01/18 18:59 06:59 18:59 Intake Total 400 Balance 400 Intake: Oral 400 Other: Voiding Method Bedside Commode Bedside Commode Urinal Urinal # Voids 2 2 5 # Bowel Movements 0 - Exam On exam, alert and oriented x3 but was drowsy and lethargic HEENT: Conjunctivae normal. eyes normal. NECK: No JVD. No thyroid enlargement. No LNs CARDIOVASCULAR: S1, S2 muffled. No murmur RESPIRATION: Breath sounds diminished in the bases. No rhonchi or crackles. No bronchial breathing. ABDOMEN: Soft, tender and distended he has dressing applied in the left low quadrant status post diagnostic paracentesis LEGS: No edema. no swelling NERVOUS SYSTEM: Cranial N 2-12 grossly normal. Moves all 4 limbs. No focal deficits. No sensory deficit. No signs of cerebellar dysfucntion. Skin: no ulcer no rash - Labs CBC & Chem 7: 12/01/18 07:23 12/01/18 07:23 Labs: Abnormal Lab Results - Last 24 Hours (Table) 11/30/18 12/01/18 12/01/18 Range/Units 14:18 07:23 07:23 WBC 23.7 H 23.6 H (3.8-10.6) k/uL Hgb 12.4 L 11.7 L (13.0-17.5) gm/dL Hct 38.1 L (39.0-53.0) % MCHC 30.9 L (31.0-37.0) g/dL RDW 17.2 H 17.1 H (11.5-15.5) % Plt Count 461 H 456 H (150-450) k/uL Neutrophils # 18.7 H (1.3-7.7) k/uL Monocytes # 1.3 H (0-1.0) k/uL Sodium 133 L (137-145) mmol/L BUN 24 H (9-20) mg/dL Glucose 101 H (74-99) mg/dL Calcium 8.3 L (8.4-10.2) mg/dL Microbiology - Last 24 Hours (Table) 11/26/18 10:30 Blood Culture - Preliminary Blood No Growth after 120 hours 11/27/18 01:10 Blood Culture - Preliminary Blood No Growth after 96 hours 11/27/18 00:29 Blood Culture - Preliminary Blood No Growth after 96 hours 11/26/18 12:30 Gram Stain - Preliminary Ascites Fluid Body Fluid Culture - Preliminary Gram Neg Bacilli Assessment and Plan Assessment: - Abdominal pain rule out his BP - UTI with E. coli - History of cirrhosis - Patient lethargy and drowsy rule out hepatic encephalopathy - Leukocytosis Plan - ok to advance diet - Awaiting paracentesis - We'll continue to monitor
[2018-12-01] MEDS: PRAVASTATIN SODIUM 20 MG TAB PO SCH (19:55)
[2018-12-01] MEDS: MIRTAZAPINE 15 MG TAB PO SCH (19:56)
--- NOTE | 2018-12-02 00:51 | PN ---
PROGRESS NOTE DATE OF SERVICE: 12/01/2018. REASON FOR FOLLOW UP: Spontaneous bacterial peritonitis, gram-negative. INTERVAL HISTORY: The patient is currently afebrile. He has been breathing comfortably. Denies any chest pain or any cough. No worsening abdominal pain. Some nausea but no vomiting. No diarrhea. PHYSICAL EXAMINATION: Blood pressure is 110/71 with a pulse of 80, temperature 98.4. He is 94% on room air. General description is an elderly male lying in bed in no distress. Respiratory system: Unlabored breathing. Clear to auscultation anteriorly. Heart S1, S2. Regular rate and rhythm. ABDOMEN: Soft, not distended. No guarding or rigidity. LABS: culture with gram-negative. ID sensitivity pending. White count elevated 23.6. DIAGNOSTIC IMPRESSION AND PLAN: Patient with spontaneous bacterial peritonitis. Patient has underlying alcoholic cirrhosis for therapeutic paracentesis tomorrow. Continue with Zosyn while waiting for the ID with gram-negative adjust antibiotic further if needed. Continue supportive care. MMODL / IJN: [id number] /
[2018-12-02] MEDS: HYDROmorphone 1 MG/ML 1 ML SYRINGE IVP PRN ×6 (01:54→21:26)
[2018-12-02] MEDS: ACETAMINOPHEN TAB 325 MG TAB PO PRN (06:31)
--- NOTE | 2018-12-02 08:49 | CDI ---
Documentation Clarification Form Date: 11/29/2018 12:21:00 PM From: Jayda Rain RN, CCDS Admit Date: 11/26/2018 1:33:00 PM Patient Name: Mihai Nina Visit Number: [id number] Discharge Date: ATTENTION: The Clinical Documentation Specialists (CDI) and [facility] Coding Staff appreciate your assistance in clarifying documentation. Please respond to the clarification below the line at the bottom and electronically sign. The CDI & [facility] Coding staff will review the response and follow-up if needed. Please note: Queries are made part of the Legal Health Record. If you have any questions, please contact the author of this message via ITS. Dr. Marroquin The diagnosis Sepsis was documented in the record , but is not consistently noted in subsequent documentation. History/Risk Factors: 63 yr old male presents to the ED for abnormal lab values and abdominal pain. Medical Hx Alcoholic liver cirrhosis , recurrent ascites CAD HTN Clinical Indicators: On admission VSS 122/77 105 97.9 18 98% ra, WBC 23.4, UA culture Ecoli; Body fluid culture few polymorph nuclear Leukocytes Sepsis was documented by internal medicine in PN 11/27/2018 Treatment: Consults ID, GI, Antibiotics Zosyn Please clarify if the diagnosis of Sepsis was: Present/active this admission Treated and resolved this admission Ruled out Other, please specify Clinically unable to determine (Last Revision: July 2018-New) unable to determine MTDD
--- NOTE | 2018-12-02 09:04 | CDI ---
Documentation Clarification Form Date: 11/29/2018 12:42:00 PM From: Jayda Rain RN CCDS Admit Date: 11/26/2018 1:33:00 PM Patient Name: Mihai Nina Visit Number: [id number] Discharge Date: ATTENTION: The Clinical Documentation Specialists (CDI) and [facility] Coding Staff appreciate your assistance in clarifying documentation. Please respond to the clarification below the line at the bottom and electronically sign. The CDI & [facility] Coding staff will review the response and follow-up if needed. Please note: Queries are made part of the Legal Health Record. If you have any questions, please contact the author of this message via ITS. Hepatic Encephalopathy is documented in the Internal medicine progress note 2018 History/Risk Factors:63 yr old male presents to the ED with abnormal lab values. Medical Hx Alcoholic Cirrhosis; Recurrent ascites, CAD, HTN, OA , Clinical Indicators: per the H&P "Patient is lethargic and confused at times." PN "Lethargy could probably because of the Dilaudid patient received." " HIs ammonia is high patient might need to be started on lactulose" Labs: Ammonia 21; WBc 35.9 Treatment: Dilaudid ivp 1mg Q 3hrs Consults: ID, GI In your professional opinion, can you please clarify the specific type of Encephalopathy, if known? Hepatic Encephalopathy ruled in poa Hepatic Encephalopathy ruled out Other, please specify Unable to determine (Last Revision: January 2018) unable to determine if present on admission MTDD
[2018-12-02 09:51] LABS: ALT 39 U/L (21-72); AST 53 U/L (17-59); Albumin 2.3 g/dL (3.5-5.0); Alkaline Phosphatase 216 U/L (38-126); Anion Gap 7 mmol/L; Blood Urea Nitrogen 23 mg/dL (9-20); Calcium 8.1 mg/dL (8.4-10.2); Carbon Dioxide 25 mmol/L (22-30); Chloride 101 mmol/L (98-107); Glucose 84 mg/dL (74-99); Potassium 4.4 mmol/L (3.5-5.1); Sodium 133 mmol/L (137-145); Total Bilirubin 1.9 mg/dL (0.2-1.3); Total Protein 6.1 g/dL (6.3-8.2)
[2018-12-02] MEDS: METOPROLOL SUCCINATE (ER) 25 MG TAB.ER.24H PO SCH ×2 (09:53→20:30)
[2018-12-02] MEDS: PANTOPRAZOLE 40 MG TABLET PO SCH ×2 (09:54→18:10)
[2018-12-02] MEDS: NICOTINE 21MG/24HR PATCH TRANSDERM SCH (09:54)
[2018-12-02] MEDS: FUROSEMIDE 40 MG TAB PO SCH (09:54)
[2018-12-02] MEDS: MIDODRINE 5 MG TAB PO SCH ×3 (09:54→18:09)
[2018-12-02] MEDS: PIPERACILLIN-TAZOBACTAM 3.375 GM in SODIUM CHLORIDE 0.9% 100 ML IVPB SCH ×2 (09:54→18:09)
[2018-12-02] MEDS: SPIRONOLACTONE 25 MG TAB PO SCH (09:54)
--- NOTE | 2018-12-02 09:58 | US ---
EXAMINATION TYPE: US abdomen limited DATE OF EXAM: 12/02/2018 COMPARISON: US CLINICAL HISTORY: ascites for paracentesis. Complex fluid collections are seen in all four abdominal quadrants with only small free fluid pockets imaged within complex areas that measure less than 3.0cm A/P. IMPRESSION: 1. Small amount of ascites present.
[2018-12-02 10:06] LABS: INR 1.2 (<1.2); Prothrombin Time 12.5 sec (9.0-12.0)
[2018-12-02 10:13] LABS: Anisocytosis Slight; Basophils # (A) 0.1 k/uL (0-0.2); Basophils % (A) 0 %; Eosinophils # (A) 0.2 k/uL (0-0.7); Eosinophils % (A) 1 %; HCT 36.1 % (39.0-53.0); Hypochromasia Slight; Lymphocytes # (A) 2.2 k/uL (1.0-4.8); Lymphocytes % (A) 12 %; MCH 26.6 pg (25.0-35.0); MCHC 30.4 g/dL (31.0-37.0); MCV 87.3 fL (80.0-100.0); Mean Platelet Volume 6.6; Monocytes % (A) 5 %; Neutrophils # (A) 15.5 k/uL (1.3-7.7); Neutrophils % (A) 81 %; Platelet Count 414 k/uL (150-450); RBC 4.14 m/uL (4.30-5.90); WBC 19.1 k/uL (3.8-10.6)
[2018-12-02 10:50] LABS: Toxic Granulation Present
[2018-12-02] MEDS ORDERED: LACTULOSE 20 GM/30 ML CUP PO PRN (14:20)
--- NOTE | 2018-12-02 14:50 | P.PN ---
Subjective This is a pleasant 63 years old male with past medical history of liver cirrhosis and ascites, mostly alcoholic liver disease. Previous history of drinking alcohol about 10 beers per day and stopped on 05/2018. History of substance abuse and current cigarette smoker. He was sent to the emergency room by his doctor because of his worsening leukocytosis. Patient has been complaining of from generalized abdominal pain mainly on the right upper quadrant for about 2 months now. He is tolerating diet well with no nausea vomiting, normal bowel movements. He has CT of the abdomen and pelvis without contrast showing hepatosplenomegaly. He has paracentesis which was suspicious for spontaneous bacterial peritonitis as the culture was growing gram-negative bacilli. Patient is on antibiotic Zosyn and infectious disease R following the case. His leukocytosis improved slightly today from 23 down to 19 K. Ultrasound didn't show any fluid. So we are going for repeating the CAT scan of the abdomen and pelvis without contrast. CONSTITUTIONAL: No fever, no malaise, no fatigue. HEENT: No recent visual problems or hearing problems. Denied any sore throat. CARDIOVASCULAR: No orthopnea, PND, no palpitations, no syncope. PULMONARY: No shortness of breath, no cough, no hemoptysis. GASTROINTESTINAL: No diarrhea. Normoactive bowel sounds. NEUROLOGICAL: No headaches, no weakness, no numbness. HEMATOLOGICAL: Denies any bleeding or petechiae. GENITOURINARY: Denies any burning micturition, frequency, or urgency. MUSCULOSKELETAL/RHEUMATOLOGICAL: Denies any joint pain, swelling, or any muscle pain. ENDOCRINE: Denies any polyuria or polydipsia. Medication: Tylenol, Lasix, Dilaudid, lactulose, Toprol, medial drain, Feliz, nicotine, Zofran, Protonix, Zosyn, Pravachol, Aldosterone Objective - Vital Signs Vital signs: Vital Signs Temp 97.6 F 12/02/18 06:05 Pulse 109 H 12/02/18 06:05 Resp 17 12/02/18 06:05 BP 144/79 12/02/18 06:05 Pulse Ox 98 12/02/18 06:05 Intake & Output 12/01/18 12/02/18 12/02/18 18:59 06:59 18:59 Intake Total 200 Balance 200 Intake: Oral 200 Other: Voiding Method Bedside Commode Bedside Commode Urinal Urinal # Voids 5 3 - Labs CBC & Chem 7: 12/02/18 08:50 12/02/18 08:28 Labs: Abnormal Lab Results - Last 24 Hours (Table) 12/02/18 12/02/18 12/02/18 Range/Units 08:28 08:50 09:23 WBC 19.1 H (3.8-10.6) k/uL RBC 4.14 L (4.30-5.90) m/uL Hgb 11.0 L (13.0-17.5) gm/dL Hct 36.1 L (39.0-53.0) % MCHC 30.4 L (31.0-37.0) g/dL RDW 17.0 H (11.5-15.5) % Neutrophils # 15.5 H (1.3-7.7) k/uL PT 12.5 H (9.0-12.0) sec INR 1.2 H (<1.2) Sodium 133 L (137-145) mmol/L BUN 23 H (9-20) mg/dL Calcium 8.1 L (8.4-10.2) mg/dL Total Bilirubin 1.9 H (0.2-1.3) mg/dL Alkaline Phosphatase 216 H (38-126) U/L Total Protein 6.1 L (6.3-8.2) g/dL Albumin 2.3 L (3.5-5.0) g/dL Microbiology - Last 24 Hours (Table) 11/26/18 10:30 Blood Culture - Final Blood No Growth after 144 hours 11/27/18 01:10 Blood Culture - Preliminary Blood No Growth after 120 hours 11/27/18 00:29 Blood Culture - Preliminary Blood No Growth after 120 hours Assessment and Plan Assessment: Alcoholic liver cirrhosis Hepatosplenomegaly with portal hypertension, and minimal ascites secondary to above Possible spontaneous bacterial peritonitis Urinary tract infection. Patient's symptoms improved Current cigarettes smoker History of alcohol abuse History of substance abuse including cocaine Hypertension, essential Hyperlipidemia Plan: This is a pleasant 63 years old male with liver cirrhosis and possible SBP. History of has an abdominal pain and repeat the CAT scan of the abdomen. GI team are following the patient and their input is appreciated. Patient is currently on Dilaudid and the asked to increase his pain medication, will and Ultram 50 mg 4 times a day when necessary [at home he was 100 mg every 8 when necessary].Labs and medication were reviewed. This was discussed with GI team. Continue same treatment. Continue with symptomatic treatment. Resume home medication. Monitor lytes and vitals. DVT and GI prophylaxis. Further recommendations of the clinical course of the patient DVT prophylaxis: Subcutaneous heparin GI Prophylaxis: Protonix PT/OT: Pending Prognosis is guarded
[2018-12-02] MEDS: IOPAMIDOL-300 CONTRAST 30 ML VIAL (ORAL USE) PO PRN ×2 (15:15→16:05)
[2018-12-02] MEDS: HEPARIN SODIUM,PORCINE 5,000 UNIT/ML 1 ML VIAL SQ SCH (20:30)
[2018-12-02] MEDS: MIRTAZAPINE 15 MG TAB PO SCH (20:31)
[2018-12-02] MEDS: PRAVASTATIN SODIUM 20 MG TAB PO SCH (20:31)
[2018-12-02] MEDS: traMADol 50 MG TAB PO PRN (20:40)
--- NOTE | 2018-12-02 22:17 | CT ---
EXAMINATION TYPE: CT abdomen pelvis wo con DATE OF EXAM: 12/02/2018 HISTORY: Right sided abdominal pain and leukocytosis. CT DLP: 1083 mGycm. Automated Exposure Control for Dose Reduction was Utilized. TECHNIQUE: CT scan of the abdomen and pelvis is performed with oral but without IV contrast. COMPARISON: CT abdomen and pelvis from 6 days ago FINDINGS: Within the limitations of a non-contrast study, the following observations are made. LUNG BASES: Three-vessel coronary artery calcification and/or stents are redemonstrated. Bibasilar li near scarring and/or atelectasis is again seen. LIVER/GB: Liver is stable and somewhat small in size and markedly heterogeneous in appearance. Cannot exclude underlying small masses. This could be further investigated with multiphase contrast enhance d study if desired. PANCREAS: No significant abnormality is seen. SPLEEN: Spleen is enlarged at 15.1 centimeters axial image 31 not significantly changed from prior. ADRENALS: No significant abnormality is seen. KIDNEYS: Scattered low dense lesions throughout both kidneys favor simple cysts. BOWEL: Oral contrast only reaches level of distal jejunal loops. There is no suspicious small or larg e bowel dilatation. GENITAL ORGANS: Central calcifications are seen in normal sized prostate gland. LYMPH NODES: No greater than 1cm abdominal or pelvic lymph nodes are appreciated. OSSEOUS STRUCTURES: No significant abnormality is seen. OTHER: There is moderate to severe calcified plaque of aorta extending into branch vessels. Mild dulce pheral soft tissue anasarca is present. There small to moderate amount of abdominal and pelvic ascites increased from most recent prior CT. T he fluid does not layer dependently with some heterogeneous slight nodularity in the ascitic fluid an terior to the liver identified. IMPRESSION: 1. Interval increase in size of small to moderate amount of diffuse abdominal and pelvic ascites whic h is not simple as does not layer dependently and has slight nodularity. Peritoneal carcinomatosis is in the differential. 2. Cirrhosis with underlying portal hypertension redemonstrated. Underlying intrahepatic masses are n ot excluded. Correlate clinically and without alpha-fetoprotein levels.
--- NOTE | 2018-12-02 22:34 | P.PN ---
Subjective Progress Note Date: 12/02/18 Principal diagnosis: Ascites, cirrhosis Patient seated bedside. No nausea, vomiting or signs or symptoms of GI bleeding. Tolerating his diet. He still reporting some abdominal discomfort today and constipation. Objective - Vital Signs Vital signs: Vital Signs Temp 98.2 F 12/02/18 14:45 Pulse 91 12/02/18 14:45 Resp 18 12/02/18 14:45 BP 108/66 12/02/18 14:45 Pulse Ox 98 12/02/18 14:45 Intake & Output 12/02/18 12/02/18 12/03/18 06:59 18:59 06:59 Other: Voiding Method Bedside Commode Urinal # Voids 3 4 - Exam On physical examination, patient appears comfortable in no apparent distress. HEAD: Normocephalic, atraumatic. EYES: No scleral icterus. No conjunctival injection. MOUTH: No lesions, tongue midline. NECK: Trachea midline, no gross abnormalities. CHEST: Clear to auscultation with no wheezing or rhonchi appreciated. HEART: Regular rate and rhythm. ABDOMEN: Soft, obese. Bowel sounds are positive. No organomegaly. No guarding or rigidity. EXTREMITIES: No pedal edema. SKIN: No rashes, no jaundice. NEUROLOGIC: Alert and oriented. - Labs CBC & Chem 7: 12/02/18 08:50 12/02/18 08:28 Labs: Abnormal Lab Results - Last 24 Hours (Table) 12/02/18 12/02/18 12/02/18 Range/Units 08:28 08:50 09:23 WBC 19.1 H (3.8-10.6) k/uL RBC 4.14 L (4.30-5.90) m/uL Hgb 11.0 L (13.0-17.5) gm/dL Hct 36.1 L (39.0-53.0) % MCHC 30.4 L (31.0-37.0) g/dL RDW 17.0 H (11.5-15.5) % Neutrophils # 15.5 H (1.3-7.7) k/uL PT 12.5 H (9.0-12.0) sec INR 1.2 H (<1.2) Sodium 133 L (137-145) mmol/L BUN 23 H (9-20) mg/dL Calcium 8.1 L (8.4-10.2) mg/dL Total Bilirubin 1.9 H (0.2-1.3) mg/dL Alkaline Phosphatase 216 H (38-126) U/L Total Protein 6.1 L (6.3-8.2) g/dL Albumin 2.3 L (3.5-5.0) g/dL Microbiology - Last 24 Hours (Table) 11/26/18 12:30 Gram Stain - Preliminary Ascites Fluid Body Fluid Culture - Preliminary Gram Neg Bacilli 11/26/18 10:30 Blood Culture - Final Blood No Growth after 144 hours 11/27/18 01:10 Blood Culture - Preliminary Blood No Growth after 120 hours 11/27/18 00:29 Blood Culture - Preliminary Blood No Growth after 120 hours Assessment and Plan (1) Alcoholic cirrhosis of liver with ascites Narrative/Plan: Patient reporting abdominal pain. He did have paracentesis however only 15 mL of fluid removed and based on fluid studies this was a traumatic tap that was grossly bloody. He is on antibiotic treatment due to underlying UTI with improvement of his white blood cell count. Current Visit: Yes Status: Acute Code(s): K70.31 - ALCOHOLIC CIRRHOSIS OF LIVER WITH ASCITES SNOMED Code(s): 243259912 (2) History of ETOH abuse Current Visit: Yes Status: Acute Code(s): Z87.898 - PERSONAL HISTORY OF OTHER SPECIFIED CONDITIONS SNOMED Code(s): 850362596 Plan: Supportive care Okay for diet, will advance to low sodium regular diet Alcohol abstinence Continue antibiotic therapy Continue Aldactone 100 mg daily and Lasix 40 mg daily Lactulose 20 mg twice a day added due to constipation Patient will need follow-up for HCC screening and continue management of cirrhosis as outpatient Will check AFP Thank you for allowing us to participate in the care of the patient we will continue to follow
[2018-12-03] MEDS: HYDROmorphone 1 MG/ML 1 ML SYRINGE IVP PRN ×4 (00:02→12:04)
[2018-12-03] MEDS: PIPERACILLIN-TAZOBACTAM 3.375 GM in SODIUM CHLORIDE 0.9% 100 ML IVPB SCH ×4 (00:02→23:28)
--- NOTE | 2018-12-03 06:54 | PN ---
PROGRESS NOTE DATE OF SERVICE: 12/02/2018 REASON FOR FOLLOWUP: Peritonitis. INTERVAL HISTORY: The patient is afebrile, has been breathing comfortably. Denies having any chest pain or any cough. No nausea, vomiting, or any worsening abdominal pain. Paracentesis apparently could not be performed as he was not noticed to have a free-floating ascitic fluid. The patient denies any nausea, vomiting, or any diarrhea. PHYSICAL EXAMINATION: On examination, blood pressure 108/66 with the pulse of 91, temperature 98.2. He is 98% on room air. General description is an elderly male lying in bed in no distress. RESPIRATORY SYSTEM: Unlabored breathing, clear to auscultation anteriorly. HEART: S1, S2. Regular rate and rhythm. ABDOMEN: Soft, slightly distended. No rigidity. LABS: Hemoglobin is 11, white count 19.1. BUN of 23, creatinine 0.84. Blood culture has been negative. Peritoneal fluid with gram-negative bacilli. ID and sensitivity pending. DIAGNOSTIC IMPRESSION AND PLAN: Patient with spontaneous bacterial peritonitis in this patient with underlying alcoholic cirrhosis. Paracentesis therapeutic unable to perform as no free fluid was noticed and this was confirmed on the CT. The patient to continue with Zosyn while awaiting for the culture to finalize. Continue with supportive care. MMODL / IJN: [id number] /
[2018-12-03] MEDS: FUROSEMIDE 40 MG TAB PO SCH (08:00)
[2018-12-03] MEDS: METOPROLOL SUCCINATE (ER) 25 MG TAB.ER.24H PO SCH ×2 (08:00→20:16)
[2018-12-03] MEDS: MIDODRINE 5 MG TAB PO SCH ×3 (08:00→16:16)
[2018-12-03] MEDS: SPIRONOLACTONE 25 MG TAB PO SCH (08:00)
[2018-12-03] MEDS: PANTOPRAZOLE 40 MG TABLET PO SCH ×2 (08:00→16:16)
[2018-12-03] MEDS: HEPARIN SODIUM,PORCINE 5,000 UNIT/ML 1 ML VIAL SQ SCH ×2 (08:00→20:16)
[2018-12-03] MEDS: traMADol 50 MG TAB PO PRN ×2 (08:10→23:25)
[2018-12-03 09:52] LABS: Anisocytosis Slight; Basophils # (A) 0.1 k/uL (0-0.2); Basophils % (A) 0 %; Eosinophils # (A) 0.3 k/uL (0-0.7); Eosinophils % (A) 1 %; HCT 37.7 % (39.0-53.0); Lymphocytes # (A) 2.9 k/uL (1.0-4.8); Lymphocytes % (A) 13 %; MCH 27.8 pg (25.0-35.0); MCHC 31.9 g/dL (31.0-37.0); Mean Platelet Volume 6.6; Monocytes # (A) 1.6 k/uL (0-1.0); Monocytes % (A) 7 %; Neutrophils # (A) 17.3 k/uL (1.3-7.7); Neutrophils % (A) 78 %; Platelet Count 532 k/uL (150-450); RBC 4.33 m/uL (4.30-5.90); RDW 17.2 % (11.5-15.5); WBC 22.2 k/uL (3.8-10.6)
[2018-12-03 10:16] LABS: ALT 40 U/L (21-72); AST 63 U/L (17-59); Albumin 2.7 g/dL (3.5-5.0); Alkaline Phosphatase 255 U/L (38-126); Anion Gap 9 mmol/L; Blood Urea Nitrogen 22 mg/dL (9-20); Calcium 8.4 mg/dL (8.4-10.2); Carbon Dioxide 22 mmol/L (22-30); Chloride 102 mmol/L (98-107); Glucose 92 mg/dL (74-99); Potassium 4.9 mmol/L (3.5-5.1); Sodium 133 mmol/L (137-145); Total Bilirubin 2.1 mg/dL (0.2-1.3)
--- NOTE | 2018-12-03 11:33 | US ---
EXAMINATION TYPE: US liver DATE OF EXAM: 12/03/2018 COMPARISON: NONE CLINICAL HISTORY: cirrhosis, peritoneaL cancer ?, elevated bilirubin. EXAM MEASUREMENTS: Liver Length: 14.7 cm Gallbladder Wall: not visualized CBD: 0.6 cm Right Kidney: 11.0 x 6.6 x 6.3 cm Loculated area in peritoneal area noted. Technically difficult study, patient has distended abdomen. Pancreas: Obscured by bowel gas Liver: increased echogenicity, heterogeneous, difficult to visualize vessels, probable hepatopetal fl ow in liver, however one intercostal window vessels viewed as well as possible through one window Gallbladder: unable to visualized gallbladder CBD: very difficult to visualize, likely normal Right Kidney: limited view, inferior pole completely obscured by bowel gas IMPRESSION: Findings compatible with patient's history of cirrhosis. Loculated peritoneal fluid. Limi shanta exam.
[2018-12-03] MEDS: NICOTINE 21MG/24HR PATCH TRANSDERM SCH (12:03)
--- NOTE | 2018-12-03 13:34 | P.PN ---
Subjective This is a pleasant 63 years old male with past medical history of liver cirrhosis and ascites, mostly alcoholic liver disease. Previous history of drinking alcohol about 10 beers per day and stopped on 05/2018. History of substance abuse and current cigarette smoker. He was sent to the emergency room by his doctor because of his worsening leukocytosis. Patient has been complaining of from generalized abdominal pain mainly on the right upper quadrant for about 2 months now. He is tolerating diet well with no nausea vomiting, normal bowel movements. He has CT of the abdomen and pelvis without contrast showing hepatosplenomegaly. He has paracentesis which was suspicious for spontaneous bacterial peritonitis as the culture was growing gram-negative bacilli. Patient is on antibiotic Zosyn and infectious disease R following the case. His leukocytosis improved slightly today from 23 down to 19 K. Ultrasound didn't show any fluid. So we are going for repeating the CAT scan of the abdomen and pelvis without contrast. 12/03/2018 Patient is fully awake however his O2 sleepy. He is oriented to time place and person. Patient remains to have abdominal pain and generalized abdominal tenderness. CT of the abdomen: Possible peritoneal carcinomatosis, cirrhosis. No fever and vitals stable. Leukocytosis slightly up again to 20 2. okay. Creatinine 0.6. We'll consult oncology and surgical team for further evaluation of his peritoneal disease. CONSTITUTIONAL: No fever, no malaise, no fatigue. HEENT: No recent visual problems or hearing problems. Denied any sore throat. CARDIOVASCULAR: No orthopnea, PND, no palpitations, no syncope. PULMONARY: No shortness of breath, no cough, no hemoptysis. GASTROINTESTINAL: normoactive bowel sounds. NEUROLOGICAL: No headaches, no weakness, no numbness. HEMATOLOGICAL: Denies any bleeding or petechiae. GENITOURINARY: Denies any burning micturition, frequency, or urgency. MUSCULOSKELETAL/RHEUMATOLOGICAL: Denies any joint pain, swelling, or any muscle pain. ENDOCRINE: Denies any polyuria or polydipsia. Medication: Tylenol, Lasix, Dilaudid, lactulose, Toprol, medial drain, Feliz, nicotine, Zofran, Protonix, Zosyn, Pravachol, Aldosterone Objective - Vital Signs Vital signs: Vital Signs Temp 97.8 F 12/03/18 07:00 Pulse 58 L 12/03/18 07:00 Resp 16 12/03/18 07:00 BP 110/70 12/03/18 07:00 Pulse Ox 95 12/03/18 07:00 Intake & Output 12/02/18 12/03/18 12/03/18 18:59 06:59 18:59 Intake Total 300 Balance 300 Intake: Oral 300 Other: # Voids 4 2 - Exam GENERAL: The patient is alert and oriented x3, not in any acute distress. Well developed, well nourished. HEENT: Pupils are round and equally reacting to light. EOMI. No scleral icterus. No conjunctival pallor. Normocephalic, atraumatic. No pharyngeal erythema. No thyromegaly. CARDIOVASCULAR: S1 and S2 present. No murmurs, rubs, or gallops. PULMONARY: Chest is clear to auscultation, no wheezing or crackles. -ABDOMEN: Soft, generalized abdominal tenderness, more on the right upper quadrant nondistended, normoactive bowel sounds. No palpable organomegaly. MUSCULOSKELETAL: No joint swelling or deformity. EXTREMITIES: No cyanosis, clubbing, or pedal edema. NEUROLOGICAL: Gross neurological examination did not reveal any focal deficits. SKIN: No rashes. - Labs CBC & Chem 7: 12/03/18 09:34 12/03/18 09:34 Labs: Abnormal Lab Results - Last 24 Hours (Table) 12/03/18 12/03/18 Range/Units 09:34 09:34 WBC 22.2 H (3.8-10.6) k/uL Hgb 12.0 L (13.0-17.5) gm/dL Hct 37.7 L (39.0-53.0) % RDW 17.2 H (11.5-15.5) % Plt Count 532 H (150-450) k/uL Neutrophils # 17.3 H (1.3-7.7) k/uL Monocytes # 1.6 H (0-1.0) k/uL Sodium 133 L (137-145) mmol/L BUN 22 H (9-20) mg/dL Total Bilirubin 2.1 H (0.2-1.3) mg/dL AST 63 H (17-59) U/L Alkaline Phosphatase 255 H (38-126) U/L Albumin 2.7 L (3.5-5.0) g/dL Microbiology - Last 24 Hours (Table) 11/27/18 01:10 Blood Culture - Final Blood No Growth after 144 hours 11/27/18 00:29 Blood Culture - Final Blood No Growth after 144 hours 11/26/18 12:30 Gram Stain - Final Ascites Fluid Body Fluid Culture - Final Escherichia coli 11/26/18 10:30 Blood Culture - Final Blood No Growth after 144 hours Assessment and Plan Assessment: Alcoholic liver cirrhosis Hepatosplenomegaly with portal hypertension, and minimal ascites secondary to above Possible spontaneous bacterial peritonitis Possible peritoneal carcinomatosis Urinary tract infection. Patient's symptoms improved Current cigarettes smoker History of alcohol abuse History of substance abuse including cocaine Hypertension, essential Hyperlipidemia Plan: This is a pleasant 63 years old male with liver cirrhosis and possible SBP. History of has an abdominal pain and repeat the CAT scan of the abdomen. GI team are following the patient and their input is appreciated. Patient is currently on Dilaudid and the asked to increase his pain medication, will and Ultram 50 mg 4 times a day when necessary [at home he was 100 mg every 8 when necessary].Labs and medication were reviewed. This was discussed with GI team. Continue same treatment. Continue with symptomatic treatment. Resume home medication. Monitor lytes and vitals. DVT and GI prophylaxis. Further recommendations of the clinical course of the patient DVT prophylaxis: Subcutaneous heparin GI Prophylaxis: Protonix PT/OT: Pending Prognosis is guarded
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
[2018-12-03 15:47] VITALS: BMI 29.3
[2018-12-03] MEDS: HYDROmorphone 0.5 MG/0.5 ML SYRINGE IVP PRN ×2 (16:16→20:26)
[2018-12-03] MEDS: PRAVASTATIN SODIUM 20 MG TAB PO SCH (20:16)
[2018-12-03] MEDS: MIRTAZAPINE 15 MG TAB PO SCH (20:16)
[2018-12-04] MEDS: HYDROmorphone 0.5 MG/0.5 ML SYRINGE IVP PRN ×3 (00:33→21:04)
--- NOTE | 2018-12-04 05:33 | PN ---
PROGRESS NOTE DATE OF SERVICE: 12/03/2018. REASON FOR FOLLOWUP: Peritonitis with gram-negative. INTERVAL HISTORY: The patient is currently afebrile. He is breathing comfortably. His abdominal pain is currently controlled with pain medication. The patient denies having any nausea, no vomiting and no diarrhea. PHYSICAL EXAMINATION: On examination, blood pressure 102/64 with a pulse of 85, temperature is 97.6. He is 94% on room air. General description is an elderly male lying in bed in no distress. RESPIRATORY SYSTEM: Unlabored breathing, clear to auscultation anteriorly. HEART: S1, S2. Regular rate and rhythm. ABDOMEN: Soft, tenderness. No guarding or rigidity. LABS: Hemoglobin is 12 with a white count of 22.2 with a BUN of 22, creatinine 0.69. Abdominal culture with E coli, sensitivities still pending. DIAGNOSTIC IMPRESSION AND PLAN: Patient admitted to the hospital with abdominal pain, which is likely multifactorial with concern for possible SBP. However, the patient did not have significant free- flowing ascitic fluid now with abnormal CT raises the possibility of carcinomatosis peritoneal. Patient is currently covered with Zosyn though the white count showing abdominal drain with Escherichia coli. Sensitivities still not finalized on the abdominal fluid, question of possible ESBL. May need to switch more to meropenem. CT will be reviewed with radiologist and discuss with Surgery. Continue supportive care. MMODL / IJN: [id number] /
[2018-12-04 08:14] LABS: ALT 36 U/L (21-72); AST 56 U/L (17-59); Albumin 2.2 g/dL (3.5-5.0); Alkaline Phosphatase 231 U/L (38-126); Anion Gap 5 mmol/L; Blood Urea Nitrogen 21 mg/dL (9-20); Calcium 8.2 mg/dL (8.4-10.2); Carbon Dioxide 27 mmol/L (22-30); Chloride 102 mmol/L (98-107); Glucose 86 mg/dL (74-99); Potassium 4.5 mmol/L (3.5-5.1); Sodium 134 mmol/L (137-145); Total Bilirubin 1.3 mg/dL (0.2-1.3); Total Protein 6.1 g/dL (6.3-8.2)
[2018-12-04 08:19] LABS: Anisocytosis Slight; Basophils # (A) 0.1 k/uL (0-0.2); Basophils % (A) 1 %; Eosinophils # (A) 0.2 k/uL (0-0.7); Eosinophils % (A) 2 %; HCT 35.5 % (39.0-53.0); HGB 10.9 gm/dL (13.0-17.5); Hypochromasia Slight; Lymphocytes # (A) 2.4 k/uL (1.0-4.8); Lymphocytes % (A) 18 %; MCH 27.2 pg (25.0-35.0); MCHC 30.8 g/dL (31.0-37.0); MCV 88.2 fL (80.0-100.0); Mean Platelet Volume 6.3; Monocytes # (A) 0.7 k/uL (0-1.0); Monocytes % (A) 6 %; Neutrophils # (A) 9.6 k/uL (1.3-7.7); Neutrophils % (A) 73 %; Platelet Count 456 k/uL (150-450); RBC 4.02 m/uL (4.30-5.90); WBC 13.2 k/uL (3.8-10.6)
[2018-12-04 09:06] LABS: Poikilocytosis (M) Present
[2018-12-04] MEDS ORDERED: RX INFO: IV CONTRAST WAS GIVEN 1 EACH MISC MISCELLANE PRN (09:09)
[2018-12-04] MEDS: PIPERACILLIN-TAZOBACTAM 3.375 GM in SODIUM CHLORIDE 0.9% 100 ML IVPB SCH ×2 (09:29→15:07)
[2018-12-04] MEDS: SPIRONOLACTONE 25 MG TAB PO SCH (09:30)
[2018-12-04] MEDS: METOPROLOL SUCCINATE (ER) 25 MG TAB.ER.24H PO SCH ×2 (09:30→21:04)
[2018-12-04] MEDS: FUROSEMIDE 40 MG TAB PO SCH (09:30)
[2018-12-04] MEDS: MIDODRINE 5 MG TAB PO SCH ×3 (09:30→17:57)
[2018-12-04] MEDS: PANTOPRAZOLE 40 MG TABLET PO SCH ×2 (09:30→17:57)
[2018-12-04] MEDS: HEPARIN SODIUM,PORCINE 5,000 UNIT/ML 1 ML VIAL SQ SCH ×2 (09:30→21:04)
[2018-12-04] MEDS: NICOTINE 21MG/24HR PATCH TRANSDERM SCH (09:31)
[2018-12-04] MEDS: traMADol 50 MG TAB PO PRN ×2 (09:36→17:58)
--- NOTE | 2018-12-04 10:32 | P.PN ---
Subjective This is a pleasant 63 years old male with past medical history of liver cirrhosis and ascites, mostly alcoholic liver disease. Previous history of drinking alcohol about 10 beers per day and stopped on 05/2018. History of substance abuse and current cigarette smoker. He was sent to the emergency room by his doctor because of his worsening leukocytosis. Patient has been complaining of from generalized abdominal pain mainly on the right upper quadrant for about 2 months now. He is tolerating diet well with no nausea vomiting, normal bowel movements. He has CT of the abdomen and pelvis without contrast showing hepatosplenomegaly. He has paracentesis which was suspicious for spontaneous bacterial peritonitis as the culture was growing gram-negative bacilli. Patient is on antibiotic Zosyn and infectious disease R following the case. His leukocytosis improved slightly today from 23 down to 19 K. Ultrasound didn't show any fluid. So we are going for repeating the CAT scan of the abdomen and pelvis without contrast. 12/03/2018 Patient is fully awake however his O2 sleepy. He is oriented to time place and person. Patient remains to have abdominal pain and generalized abdominal tenderness. CT of the abdomen: Possible peritoneal carcinomatosis, cirrhosis. No fever and vitals stable. Leukocytosis slightly up again to 20 2. okay. Creatinine 0.6. We'll consult oncology and surgical team for further evaluation of his peritoneal disease. 12/04/2018 Patient is awake and oriented in the general medical floor. He still complaining of from same abdominal pain and tenderness which is generalized and more in the right upper quadrant. Surgical evaluation for his possible peritoneal carcinomatosis and abdominal painis appreciated no need for surgical intervention.oncology team has been consulted. Patient is asking to increase his pain medication but without the Dilaudid so he was placed on alternating Ultram with Dilaudid every 3 hours and he agrees with that.white cell count improved today to 13.2 K.bilirubin back to normal at 1.3. Liver enzymes within normal as well.ascites fluid culture and urine culture growing E. coli which is sensitive to Zosyn. CONSTITUTIONAL: No fever, no malaise, no fatigue. HEENT: No recent visual problems or hearing problems. Denied any sore throat. CARDIOVASCULAR: No orthopnea, PND, no palpitations, no syncope. PULMONARY: No shortness of breath, no cough, no hemoptysis. GASTROINTESTINAL: normoactive bowel sounds. NEUROLOGICAL: No headaches, no weakness, no numbness. HEMATOLOGICAL: Denies any bleeding or petechiae. GENITOURINARY: Denies any burning micturition, frequency, or urgency. MUSCULOSKELETAL/RHEUMATOLOGICAL: Denies any joint pain, swelling, or any muscle pain. ENDOCRINE: Denies any polyuria or polydipsia. Medication: Tylenol, Lasix, Dilaudid, lactulose, Toprol, medial drain, Feliz, nicotine, Zofran, Protonix, Zosyn, Pravachol, Aldosterone Objective - Vital Signs Vital signs: Vital Signs Temp 98.7 F 12/04/18 07:03 Pulse 80 12/04/18 07:03 Resp 16 12/04/18 07:03 BP 104/67 12/04/18 07:03 Pulse Ox 94 L 12/04/18 07:03 Intake & Output 12/03/18 12/04/18 12/04/18 18:59 06:59 18:59 Intake Total 100 Balance 100 Weight 87.543 kg Intake: Oral 100 Other: Voiding Method Bedside Commode Urinal # Voids 4 3 # Bowel Movements 1 - Exam GENERAL: The patient is alert and oriented x3, not in any acute distress. Well developed, well nourished. HEENT: Pupils are round and equally reacting to light. EOMI. No scleral icterus. No conjunctival pallor. Normocephalic, atraumatic. No pharyngeal erythema. No thyromegaly. CARDIOVASCULAR: S1 and S2 present. No murmurs, rubs, or gallops. PULMONARY: Chest is clear to auscultation, no wheezing or crackles. -ABDOMEN: Soft, generalized abdominal tenderness, more on the right upper quadrant nondistended, normoactive bowel sounds. No palpable organomegaly. MUSCULOSKELETAL: No joint swelling or deformity. EXTREMITIES: No cyanosis, clubbing, or pedal edema. NEUROLOGICAL: Gross neurological examination did not reveal any focal deficits. SKIN: No rashes. - Labs CBC & Chem 7: 12/04/18 07:38 12/04/18 07:38 Labs: Abnormal Lab Results - Last 24 Hours (Table) 12/04/18 12/04/18 Range/Units 07:38 07:38 WBC 13.2 H (3.8-10.6) k/uL RBC 4.02 L (4.30-5.90) m/uL Hgb 10.9 L (13.0-17.5) gm/dL Hct 35.5 L (39.0-53.0) % MCHC 30.8 L (31.0-37.0) g/dL RDW 17.0 H (11.5-15.5) % Plt Count 456 H (150-450) k/uL Neutrophils # 9.6 H (1.3-7.7) k/uL Sodium 134 L (137-145) mmol/L BUN 21 H (9-20) mg/dL Calcium 8.2 L (8.4-10.2) mg/dL Alkaline Phosphatase 231 H (38-126) U/L Total Protein 6.1 L (6.3-8.2) g/dL Albumin 2.2 L (3.5-5.0) g/dL Assessment and Plan Assessment: Alcoholic liver cirrhosis Hepatosplenomegaly with portal hypertension, and minimal ascites secondary to above Possible spontaneous bacterial peritonitis Possible peritoneal carcinomatosis Urinary tract infection. Patient's symptoms improved Current cigarettes smoker History of alcohol abuse History of substance abuse including cocaine Hypertension, essential Hyperlipidemia Plan: This is a pleasant 63 years old male with liver cirrhosis and possible SBP. History of has an abdominal pain and repeat the CAT scan of the abdomen. GI team are following the patient and their input is appreciated. Patient is currently on Dilaudid and the asked to increase his pain medication, will and Ultram 50 mg 4 times a day when necessary [at home he was 100 mg every 8 when necessary].Labs and medication were reviewed. This was discussed with GI team. Continue same treatment. Continue with symptomatic treatment. Resume home medication. Monitor lytes and vitals. DVT and GI prophylaxis. Further recommendations of the clinical course of the patient DVT prophylaxis: Subcutaneous heparin GI Prophylaxis: Protonix PT/OT: Pending Prognosis is guarded
--- NOTE | 2018-12-04 12:36 | CT ---
EXAMINATION TYPE: CT chest w con DATE OF EXAM: 12/04/2018 COMPARISON: CT abdomen and pelvis 12/02/2018 HISTORY: 63-year-old male possible peritoneal masses TECHNIQUE: Contiguous axial scanning of the chest after the administration of 100 mL of Isovue 300. Coronal/sagittal reconstructions performed. CT DLP: 417.2mGycm. Automatic exposure control utilized for a dose reduction. FINDINGS: Heart upper limits of normal in size. Dense coronary vessel calcifications are present. Borderline ectatic ascending aorta at 3.6 cm. Bovine configuration to the aortic arch. Borderline caliber to the main right and left pulmonary arteries and 2.5 cm. Moderate bilateral gynecomastia. Subcarinal lymph node measures borderline enlarged at 1.5 cm. Precarinal lymph node prominent but not enlarged at 9 mm. AP window lymph node overlying sized 1 cm. Upper right paratracheal lymph node bor derline in size at 9 mm. Some reticular and streaky densities at both lung bases. Mild septal lines may be present. No consoli dation or pleural effusion. Some calcified pleural based nodularity is present particularly in the pe ripheral left upper lobe region. Visualized upper abdomen again shows moderate ascites. There is some loculation of the ascites partic ularly along the right upper quadrant. Hypodense lesions within the kidneys measuring up to 4.0 cm li abdi represent cysts. Spleen is enlarged at 15.2 cm. Bones: No osseous destructive process. IMPRESSION: 1. Some scattered septal lines in the lungs. Given possible underlying pulmonary arterial hypertensio n, consider mild fluid overload state. 2. There are some borderline-sized mesenteric lymph nodes measuring up to 1.5 cm in the subcarinal re gion. No suspicious pulmonary nodule or mass is seen at this time. 3. Redemonstrated complicated ascites in the visualized upper abdomen with some of ascites being locu lated particularly along the right upper quadrant. 4. Suspect underlying cirrhosis. Splenomegaly at 15.2 cm may reflect underlying portal venous hyperte nsion. 5. CAD.
[2018-12-04] MEDS: HYDROmorphone 1 MG/ML 1 ML SYRINGE IVP PRN (15:02)
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
[2018-12-04] MEDS: MIRTAZAPINE 15 MG TAB PO SCH (21:04)
[2018-12-04] MEDS: PRAVASTATIN SODIUM 20 MG TAB PO SCH (21:04)
--- NOTE | 2018-12-05 00:17 | P.PN ---
Subjective Progress Note Date: 12/04/18 Principal diagnosis: Ascites, cirrhosis Patient seated bedside. No nausea, vomiting or signs or symptoms of GI bleeding. Tolerating his diet. reporting that abdominal pain is better. Patient had bowel movements after lactulose therapy. Objective - Vital Signs Vital signs: Vital Signs Temp 98.7 F 12/04/18 22:05 Pulse 93 12/04/18 22:05 Resp 16 12/04/18 22:05 BP 117/71 12/04/18 22:05 Pulse Ox 96 12/04/18 22:05 Intake & Output 12/04/18 12/04/18 12/05/18 06:59 18:59 06:59 Intake Total 100 1200 Balance 100 1200 Intake: Oral 100 1200 Other: Voiding Method Bedside Commode Urinal # Voids 3 2 1 # Bowel Movements 2 - Exam On physical examination, patient appears comfortable in no apparent distress. HEAD: Normocephalic, atraumatic. EYES: No scleral icterus. No conjunctival injection. MOUTH: No lesions, tongue midline. NECK: Trachea midline, no gross abnormalities. CHEST: Clear to auscultation with no wheezing or rhonchi appreciated. HEART: Regular rate and rhythm. ABDOMEN: Soft, obese. Bowel sounds are positive. No organomegaly. No guarding or rigidity. EXTREMITIES: No pedal edema. SKIN: No rashes, no jaundice. NEUROLOGIC: Alert and oriented. - Labs CBC & Chem 7: 12/04/18 07:38 12/04/18 07:38 Labs: Abnormal Lab Results - Last 24 Hours (Table) 12/04/18 12/04/18 Range/Units 07:38 07:38 WBC 13.2 H (3.8-10.6) k/uL RBC 4.02 L (4.30-5.90) m/uL Hgb 10.9 L (13.0-17.5) gm/dL Hct 35.5 L (39.0-53.0) % MCHC 30.8 L (31.0-37.0) g/dL RDW 17.0 H (11.5-15.5) % Plt Count 456 H (150-450) k/uL Neutrophils # 9.6 H (1.3-7.7) k/uL Sodium 134 L (137-145) mmol/L BUN 21 H (9-20) mg/dL Calcium 8.2 L (8.4-10.2) mg/dL Alkaline Phosphatase 231 H (38-126) U/L Total Protein 6.1 L (6.3-8.2) g/dL Albumin 2.2 L (3.5-5.0) g/dL Assessment and Plan (1) Alcoholic cirrhosis of liver with ascites Narrative/Plan: Patient reporting abdominal pain. He did have paracentesis however only 15 mL of fluid removed and based on fluid studies this was a traumatic tap that was grossly bloody. He is on antibiotic treatment due to underlying UTI with improvement of his white blood cell count. Current Visit: Yes Status: Acute Code(s): K70.31 - ALCOHOLIC CIRRHOSIS OF LIVER WITH ASCITES SNOMED Code(s): 938469071 (2) History of ETOH abuse Current Visit: Yes Status: Acute Code(s): Z87.898 - PERSONAL HISTORY OF OTHER SPECIFIED CONDITIONS SNOMED Code(s): 135876106 Plan: Supportive care Okay for diet, will advance to low sodium regular diet Alcohol abstinence Continue antibiotic therapy Continue Aldactone 100 mg daily and Lasix 40 mg daily Lactulose 20 mg twice a day added due to constipation Patient will need follow-up for HCC screening and continue management of cirrhosis as outpatient Tumor markers within normal limits Thank you for allowing us to participate in the care of the patient we will continue to follow
[2018-12-05] MEDS: PIPERACILLIN-TAZOBACTAM 3.375 GM in SODIUM CHLORIDE 0.9% 100 ML IVPB SCH ×3 (00:24→15:40)
[2018-12-05] MEDS: traMADol 50 MG TAB PO PRN ×2 (00:25→06:44)
[2018-12-05] MEDS: HYDROmorphone 0.5 MG/0.5 ML SYRINGE IVP PRN (03:09)
--- NOTE | 2018-12-05 05:52 | PN ---
PROGRESS NOTE DATE OF SERVICE: 12/04/2018 REASON FOR FOLLOWUP: Peritonitis, gram-negative. INTERVAL HISTORY: The patient is afebrile. He is feeling slightly better, breathing comfortably. Patient denies having any chest pain, or any cough. The patient's abdominal pain has improved. No nausea, vomiting or diarrhea. PHYSICAL EXAMINATION: On examination, blood pressure is 117/71 with a pulse of 93, temperature 98.7. He is 96% on room air. General description is an elderly male lying in bed in no distress. RESPIRATORY SYSTEM: Unlabored breathing, clear to auscultation anteriorly. HEART: S1, S2. Regular rate and rhythm. ABDOMEN: Soft, mildly distended. No guarding or rigidity. LABS: Hemoglobin is 10.9, white count 13.2 with a BUN of 21, creatinine 0.86. DIAGNOSTIC IMPRESSION AND PLAN: Patient with gram-negative peritonitis in this patient to have underlying alcoholic liver cirrhosis. The sensitivities on the Escherichia coli from the abdomen have not yet finalized. However, the patient's white count of 13.2. We will keep the patient on Zosyn while waiting for the culture to finalize. Continue with supportive care. MMODL / IJN: [id number] /
[2018-12-05] MEDS: HEPARIN SODIUM,PORCINE 5,000 UNIT/ML 1 ML VIAL SQ SCH ×2 (08:54→21:06)
[2018-12-05] MEDS: METOPROLOL SUCCINATE (ER) 25 MG TAB.ER.24H PO SCH ×2 (08:55→21:37)
[2018-12-05] MEDS: SPIRONOLACTONE 25 MG TAB PO SCH ×2 (08:55→08:56)
[2018-12-05] MEDS: FUROSEMIDE 40 MG TAB PO SCH (08:56)
[2018-12-05] MEDS: NICOTINE 21MG/24HR PATCH TRANSDERM SCH (08:57)
[2018-12-05] MEDS: PANTOPRAZOLE 40 MG TABLET PO SCH ×2 (08:57→16:36)
[2018-12-05] MEDS: MIDODRINE 5 MG TAB PO SCH ×3 (08:57→16:30)
[2018-12-05 09:07] LABS: Anisocytosis Slight; HCT 37.5 % (39.0-53.0); HGB 11.7 gm/dL (13.0-17.5); Hypochromasia Slight; MCH 27.7 pg (25.0-35.0); MCHC 31.2 g/dL (31.0-37.0); MCV 88.8 fL (80.0-100.0); Mean Platelet Volume 6.8; Platelet Count 512 k/uL (150-450); RBC 4.22 m/uL (4.30-5.90); RDW 17.2 % (11.5-15.5); WBC 13.5 k/uL (3.8-10.6)
--- NOTE | 2018-12-05 09:29 | P.PN ---
Subjective This is a pleasant 63 years old male with past medical history of liver cirrhosis and ascites, mostly alcoholic liver disease. Previous history of drinking alcohol about 10 beers per day and stopped on 05/2018. History of substance abuse and current cigarette smoker. He was sent to the emergency room by his doctor because of his worsening leukocytosis. Patient has been complaining of from generalized abdominal pain mainly on the right upper quadrant for about 2 months now. He is tolerating diet well with no nausea vomiting, normal bowel movements. He has CT of the abdomen and pelvis without contrast showing hepatosplenomegaly. He has paracentesis which was suspicious for spontaneous bacterial peritonitis as the culture was growing gram-negative bacilli. Patient is on antibiotic Zosyn and infectious disease R following the case. His leukocytosis improved slightly today from 23 down to 19 K. Ultrasound didn't show any fluid. So we are going for repeating the CAT scan of the abdomen and pelvis without contrast. 12/03/2018 Patient is fully awake however his O2 sleepy. He is oriented to time place and person. Patient remains to have abdominal pain and generalized abdominal tenderness. CT of the abdomen: Possible peritoneal carcinomatosis, cirrhosis. No fever and vitals stable. Leukocytosis slightly up again to 20 2. okay. Creatinine 0.6. We'll consult oncology and surgical team for further evaluation of his peritoneal disease. 12/04/2018 Patient is awake and oriented in the general medical floor. He still complaining of from same abdominal pain and tenderness which is generalized and more in the right upper quadrant. Surgical evaluation for his possible peritoneal carcinomatosis and abdominal painis appreciated no need for surgical intervention.oncology team has been consulted. Patient is asking to increase his pain medication but without the Dilaudid so he was placed on alternating Ultram with Dilaudid every 3 hours and he agrees with that.white cell count improved today to 13.2 K.bilirubin back to normal at 1.3. Liver enzymes within normal as well.ascites fluid culture and urine culture growing E. coli which is sensitive to Zosyn. 12/05/2018 Patient is fully awake, history of complaining of from the same abdominal pain over the last 2 months which is generalized and more in the RUQ. He is tolerating diet well has normal bowel movements, no urinary complaints. No nausea vomiting. No chest pain or dyspnea. Oncology and surgical evaluation is appreciated, oncologist recommended CAT scan of the chest which showed loculated ascites in the right upper quadrant, a lifestyle director also ordered some blood test which was negative CEA and CA 9-19. He recommended to repeat paracentesis, INR been consulted for paracentesis in the RUQ. Patient was informed with this problems and instructed to follow up with his doctors upon discharge for reevaluation of possible peritoneal masses. He verbalized understanding and acceptance. Leukocytosis was improving yesterday, and his liver function test are improving with normal bilirubin and liver enzymes. Her labs from today are still pending. Patient remains on Zosyn as per ID recommendation. Pain management goals are explained to the patient and he agrees. Objective - Vital Signs Vital signs: Vital Signs Temp 98.2 F 12/05/18 06:50 Pulse 79 12/05/18 06:50 Resp 16 12/05/18 06:50 BP 110/70 12/05/18 06:50 Pulse Ox 96 12/05/18 06:50 Intake & Output 12/04/18 12/05/18 12/05/18 18:59 06:59 18:59 Intake Total 1200 Balance 1200 Intake: Oral 1200 Other: Voiding Method Bedside Commode Urinal # Voids 2 1 # Bowel Movements 2 - Exam GENERAL: The patient is alert and oriented x3, not in any acute distress. Well developed, well nourished. HEENT: Pupils are round and equally reacting to light. EOMI. No scleral icterus. No conjunctival pallor. Normocephalic, atraumatic. No pharyngeal erythema. No thyromegaly. CARDIOVASCULAR: S1 and S2 present. No murmurs, rubs, or gallops. PULMONARY: Chest is clear to auscultation, no wheezing or crackles. -ABDOMEN: Soft, generalized abdominal tenderness, more on the right upper quadrant nondistended, normoactive bowel sounds. No palpable organomegaly. MUSCULOSKELETAL: No joint swelling or deformity. EXTREMITIES: No cyanosis, clubbing, or pedal edema. NEUROLOGICAL: Gross neurological examination did not reveal any focal deficits. SKIN: No rashes. - Labs CBC & Chem 7: 12/04/18 07:38 12/04/18 07:38 Assessment and Plan Assessment: Alcoholic liver cirrhosis Hepatosplenomegaly with portal hypertension, and minimal ascites secondary to above Possible spontaneous bacterial peritonitis Possible peritoneal carcinomatosis Urinary tract infection. Patient's symptoms improved Current cigarettes smoker History of alcohol abuse History of substance abuse including cocaine Hypertension, essential Hyperlipidemia Plan: This is a pleasant 63 years old male with liver cirrhosis and possible SBP. History of has an abdominal pain and repeat the CAT scan of the abdomen. GI team are following the patient and their input is appreciated. Patient is currently on Dilaudid and the asked to increase his pain medication, will and Ultram 50 mg 4 times a day when necessary [at home he was 100 mg every 8 when necessary].Labs and medication were reviewed. This was discussed with GI team. Continue same treatment. Continue with symptomatic treatment. Resume home medication. Monitor lytes and vitals. DVT and GI prophylaxis. Further recommendations of the clinical course of the patient DVT prophylaxis: Subcutaneous heparin GI Prophylaxis: Protonix PT/OT: Pending Prognosis is guarded
--- NOTE | 2018-12-05 09:39 | US ---
EXAMINATION TYPE: US abdomen limited DATE OF EXAM: 12/05/2018 COMPARISON: US & CT 2019 CLINICAL HISTORY: assess for fluid. Ascites check Loculated fluid seen within all 4 quadrants and midline lower abdomen. Findings appear similar to 09/22/2019 IMPRESSION: 1. Small amount of loculated ascites with internal stranding may be present.
[2018-12-05 09:47] LABS: ALT 43 U/L (21-72); AST 67 U/L (17-59); Albumin 2.6 g/dL (3.5-5.0); Alkaline Phosphatase 289 U/L (38-126); Anion Gap 7 mmol/L; Blood Urea Nitrogen 19 mg/dL (9-20); Calcium 8.3 mg/dL (8.4-10.2); Carbon Dioxide 28 mmol/L (22-30); Chloride 100 mmol/L (98-107); Glucose 100 mg/dL (74-99); Potassium 4.5 mmol/L (3.5-5.1); Sodium 135 mmol/L (137-145); Total Bilirubin 1.3 mg/dL (0.2-1.3); Total Protein 6.9 g/dL (6.3-8.2)
[2018-12-05] MEDS: HYDROmorphone 1 MG/ML 1 ML SYRINGE IVP PRN ×3 (10:16→21:00)
[2018-12-05 10:30] LABS: Band Neutrophils % 1 %; Monocytes # (M) 0.41 k/uL (0-1.0); Neutrophils % (M) 76 %; Nucleated Red Blood Cells 0 /100 WBC (0-0); Total Cells Counted 100
[2018-12-05 10:31] LABS: Poikilocytosis (M) Present; Target Cells Present
[2018-12-05] MEDS: PRAVASTATIN SODIUM 20 MG TAB PO SCH (21:36)
[2018-12-05] MEDS: MIRTAZAPINE 15 MG TAB PO SCH (21:36)
[2018-12-06] MEDS: PIPERACILLIN-TAZOBACTAM 3.375 GM in SODIUM CHLORIDE 0.9% 100 ML IVPB SCH ×4 (00:12→23:11)
--- NOTE | 2018-12-06 00:26 | PN ---
PROGRESS NOTE DATE OF SERVICE: 12/05/2018. REASON FOR FOLLOWUP: Peritonitis gram-negative. INTERVAL HISTORY: The patient is currently afebrile, has been breathing comfortably. Denies having any chest pain or cough. Abdominal pain is currently improved. No nausea, vomiting or diarrhea. PHYSICAL EXAMINATION: On admission blood pressure 108/69 with a pulse of 82, temperature 99, he is 96% on room air. GENERAL DESCRIPTION: An elderly male up in the chair in no distress. RESPIRATORY SYSTEM: Unlabored breathing. Decreased breath sounds in the bases. No wheeze. HEART: S1, S2. Regular rate and rhythm. ABDOMEN: Soft, mildly distended. No guarding or rigidity. LABS: Hemoglobin is 11.6, white count of 13.5 with a BUN of 19, creatinine 0.78. The abdominal wound E coli sensitivities are still pending. Blood culture has been negative. DIAGNOSTIC IMPRESSION AND PLAN: Patient with peritonitis along with bacteremia. The patient has underlying liver cirrhosis, however, the fluid is mostly and not free-flowing and therapeutic aspirate could not be done. The culture did grow E coli, however, the micro lab has not finalized sensitivity. That will be contacted. Keep the patient on Zosyn at this point. Continue supportive care. MMODL / IJN: [id number] /
[2018-12-06] MEDS: HYDROmorphone 0.5 MG/0.5 ML SYRINGE IVP PRN (01:23)
[2018-12-06] MEDS: traMADol 50 MG TAB PO PRN ×4 (02:31→23:15)
[2018-12-06] MEDS: METOPROLOL SUCCINATE (ER) 25 MG TAB.ER.24H PO SCH ×2 (09:00→20:54)
[2018-12-06] MEDS: MIDODRINE 5 MG TAB PO SCH ×3 (09:00→17:24)
[2018-12-06] MEDS: HEPARIN SODIUM,PORCINE 5,000 UNIT/ML 1 ML VIAL SQ SCH ×2 (09:00→20:56)
[2018-12-06] MEDS: NICOTINE 21MG/24HR PATCH TRANSDERM SCH (09:00)
[2018-12-06] MEDS: PANTOPRAZOLE 40 MG TABLET PO SCH ×2 (09:01→16:02)
[2018-12-06] MEDS: FUROSEMIDE 40 MG TAB PO SCH (09:01)
[2018-12-06 10:11] LABS: ALT 43 U/L (21-72); AST 79 U/L (17-59); Albumin 2.7 g/dL (3.5-5.0); Alkaline Phosphatase 313 U/L (38-126); Anion Gap 8 mmol/L; Blood Urea Nitrogen 16 mg/dL (9-20); Calcium 8.7 mg/dL (8.4-10.2); Carbon Dioxide 29 mmol/L (22-30); Chloride 100 mmol/L (98-107); Glucose 86 mg/dL (74-99); Potassium 4.9 mmol/L (3.5-5.1); Sodium 137 mmol/L (137-145); Total Bilirubin 1.8 mg/dL (0.2-1.3); Total Protein 7.2 g/dL (6.3-8.2)
[2018-12-06 10:38] LABS: Anisocytosis Slight; Basophils # (A) 0.1 k/uL (0-0.2); Basophils % (A) 1 %; Eosinophils # (A) 0.2 k/uL (0-0.7); Eosinophils % (A) 1 %; HGB 11.9 gm/dL (13.0-17.5); Hypochromasia Slight; Lymphocytes # (A) 2.5 k/uL (1.0-4.8); Lymphocytes % (A) 18 %; MCH 27.1 pg (25.0-35.0); MCHC 30.5 g/dL (31.0-37.0); MCV 88.6 fL (80.0-100.0); Mean Platelet Volume 7.7; Monocytes # (A) 0.7 k/uL (0-1.0); Monocytes % (A) 5 %; Neutrophils # (A) 10.5 k/uL (1.3-7.7); Neutrophils % (A) 74 %; Platelet Count 393 k/uL (150-450); RDW 17.2 % (11.5-15.5); WBC 14.2 k/uL (3.8-10.6)
[2018-12-06 10:58] LABS: Poikilocytosis (M) Present; Target Cells Present
[2018-12-06] MEDS: ACETAMINOPHEN TAB 325 MG TAB PO PRN ×2 (12:33→19:35)
[2018-12-06] MEDS: PRAVASTATIN SODIUM 20 MG TAB PO SCH (20:55)
[2018-12-06] MEDS: MIRTAZAPINE 15 MG TAB PO SCH (20:55)
--- NOTE | 2018-12-06 21:07 | P.PN ---
Subjective This is a pleasant 63 years old male with past medical history of liver cirrhosis and ascites, mostly alcoholic liver disease. Previous history of drinking alcohol about 10 beers per day and stopped on 05/2018. History of substance abuse and current cigarette smoker. He was sent to the emergency room by his doctor because of his worsening leukocytosis. Patient has been complaining of from generalized abdominal pain mainly on the right upper quadrant for about 2 months now. He is tolerating diet well with no nausea vomiting, normal bowel movements. He has CT of the abdomen and pelvis without contrast showing hepatosplenomegaly. He has paracentesis which was suspicious for spontaneous bacterial peritonitis as the culture was growing gram-negative bacilli. Patient is on antibiotic Zosyn and infectious disease R following the case. His leukocytosis improved slightly today from 23 down to 19 K. Ultrasound didn't show any fluid. So we are going for repeating the CAT scan of the abdomen and pelvis without contrast. 12/03/2018 Patient is fully awake however his O2 sleepy. He is oriented to time place and person. Patient remains to have abdominal pain and generalized abdominal tenderness. CT of the abdomen: Possible peritoneal carcinomatosis, cirrhosis. No fever and vitals stable. Leukocytosis slightly up again to 20 2. okay. Creatinine 0.6. We'll consult oncology and surgical team for further evaluation of his peritoneal disease. 12/04/2018 Patient is awake and oriented in the general medical floor. He still complaining of from same abdominal pain and tenderness which is generalized and more in the right upper quadrant. Surgical evaluation for his possible peritoneal carcinomatosis and abdominal painis appreciated no need for surgical intervention.oncology team has been consulted. Patient is asking to increase his pain medication but without the Dilaudid so he was placed on alternating Ultram with Dilaudid every 3 hours and he agrees with that.white cell count improved today to 13.2 K.bilirubin back to normal at 1.3. Liver enzymes within normal as well.ascites fluid culture and urine culture growing E. coli which is sensitive to Zosyn. 12/05/2018 Patient is fully awake, history of complaining of from the same abdominal pain over the last 2 months which is generalized and more in the RUQ. He is tolerating diet well has normal bowel movements, no urinary complaints. No nausea vomiting. No chest pain or dyspnea. Oncology and surgical evaluation is appreciated, oncologist recommended CAT scan of the chest which showed loculated ascites in the right upper quadrant, a sales engineer engineered products also ordered some blood test which was negative CEA and CA 9-19. He recommended to repeat paracentesis, INR been consulted for paracentesis in the RUQ. Patient was informed with this problems and instructed to follow up with his doctors upon discharge for reevaluation of possible peritoneal masses. He verbalized understanding and acceptance. Leukocytosis was improving yesterday, and his liver function test are improving with normal bilirubin and liver enzymes. Her labs from today are still pending. Patient remains on Zosyn as per ID recommendation. Pain management goals are explained to the patient and he agrees 12/06/2018 pt is clinically stable , he is still complaining from abdominal pain which is chronic in nature for more than 2 months as per pt. i discussed the treatment options with the pt and he agrees to try to stop dilaudid and if his pain is stable and controlled with ultram pills we may consider discharge pt in 24-48 hours. pt himself wants to be discharged sooner later than later. he is eating well and tolerated diet well, having refular bowel movement. no chest pain or dyspnea . he still has mild leukocytosis with little abnormal LFT. he remain on zosyn for E.coli in his urine culture and ascitic fluid culture. he had US of the abdominal cavity and no much fluid is found , pt is instructed to f/u closely with his doctors upon discharge and he agrees. Objective - Vital Signs Vital signs: Vital Signs Temp 97.9 F 12/06/18 15:00 Pulse 81 12/06/18 19:00 Resp 18 12/06/18 19:00 BP 103/67 12/06/18 15:00 Pulse Ox 96 12/06/18 15:00 Intake & Output 12/06/18 12/06/18 12/07/18 06:59 18:59 06:59 Intake Total 320 Output Total 300 Balance 20 Intake: Oral 320 Output: Urine 300 Other: Voiding Method Bedside Commode Bedside Commode # Voids 1 2 # Bowel Movements 1 - Exam GENERAL: The patient is alert and oriented x3, not in any acute distress. Well developed, well nourished. HEENT: Pupils are round and equally reacting to light. EOMI. No scleral icterus. No conjunctival pallor. Normocephalic, atraumatic. No pharyngeal erythema. No thyromegaly. CARDIOVASCULAR: S1 and S2 present. No murmurs, rubs, or gallops. PULMONARY: Chest is clear to auscultation, no wheezing or crackles. -ABDOMEN: Soft, generalized abdominal tenderness, more on the right upper quadrant nondistended, normoactive bowel sounds. No palpable organomegaly. MUSCULOSKELETAL: No joint swelling or deformity. EXTREMITIES: No cyanosis, clubbing, or pedal edema. NEUROLOGICAL: Gross neurological examination did not reveal any focal deficits. SKIN: No rashes. - Labs CBC & Chem 7: 12/06/18 09:39 12/06/18 09:39 Labs: Abnormal Lab Results - Last 24 Hours (Table) 12/06/18 12/06/18 Range/Units 09:39 09:39 WBC 14.2 H (3.8-10.6) k/uL Hgb 11.9 L (13.0-17.5) gm/dL MCHC 30.5 L (31.0-37.0) g/dL RDW 17.2 H (11.5-15.5) % Neutrophils # 10.5 H (1.3-7.7) k/uL Total Bilirubin 1.8 H (0.2-1.3) mg/dL AST 79 H (17-59) U/L Alkaline Phosphatase 313 H (38-126) U/L Albumin 2.7 L (3.5-5.0) g/dL Assessment and Plan Assessment: Alcoholic liver cirrhosis Hepatosplenomegaly with portal hypertension, and minimal ascites secondary to above Possible spontaneous bacterial peritonitis Possible peritoneal carcinomatosis Urinary tract infection. Patient's symptoms improved Current cigarettes smoker History of alcohol abuse History of substance abuse including cocaine Hypertension, essential Hyperlipidemia Plan: This is a pleasant 63 years old male with liver cirrhosis and possible SBP and been treated with zosyn for Ecoli in UC and ascitic fluis cutlure . History of has an abdominal pain and repeat the CAT scan of the abdomen. GI team are following the patient and their input is appreciated. dc Dilaudid and monitor for pain while on Ultram 50 mg 4 times a day when necessary [at home he was 100 mg every 8 when necessary].Labs and medication were reviewed. This was discussed with GI team. Continue same treatment. Continue with symptomatic treatment. Resume home medication. Monitor lytes and vitals. DVT and GI prophylaxis. Further recommendations of the clinical course of the patient DVT prophylaxis: Subcutaneous heparin GI Prophylaxis: Protonix PT/OT: home Prognosis is guarded
--- NOTE | 2018-12-06 21:55 | P.PN ---
Subjective Progress Note Date: 12/06/18 Principal diagnosis: Ascites, cirrhosis Patient lying in bed. Reporting that he is feeling well. No abdominal pain. No nausea, vomiting, signs or symptoms GI bleeding. Currently tolerating his diet. Objective - Vital Signs Vital signs: Vital Signs Temp 97.9 F 12/06/18 15:00 Pulse 81 12/06/18 19:00 Resp 18 12/06/18 19:00 BP 103/67 12/06/18 15:00 Pulse Ox 96 12/06/18 15:00 Intake & Output 12/06/18 12/06/18 12/07/18 06:59 18:59 06:59 Intake Total 320 Output Total 300 Balance 20 Intake: Oral 320 Output: Urine 300 Other: Voiding Method Bedside Commode Bedside Commode # Voids 1 2 2 # Bowel Movements 1 - Exam On physical examination, patient appears comfortable in no apparent distress. HEAD: Normocephalic, atraumatic. EYES: No scleral icterus. No conjunctival injection. MOUTH: No lesions, tongue midline. NECK: Trachea midline, no gross abnormalities. CHEST: Clear to auscultation with no wheezing or rhonchi appreciated. HEART: Regular rate and rhythm. ABDOMEN: Soft, obese. Bowel sounds are positive. No organomegaly. No guarding or rigidity. EXTREMITIES: No pedal edema. SKIN: No rashes, no jaundice. NEUROLOGIC: Alert and oriented. - Labs CBC & Chem 7: 12/06/18 09:39 12/06/18 09:39 Labs: Abnormal Lab Results - Last 24 Hours (Table) 12/06/18 12/06/18 Range/Units 09:39 09:39 WBC 14.2 H (3.8-10.6) k/uL Hgb 11.9 L (13.0-17.5) gm/dL MCHC 30.5 L (31.0-37.0) g/dL RDW 17.2 H (11.5-15.5) % Neutrophils # 10.5 H (1.3-7.7) k/uL Total Bilirubin 1.8 H (0.2-1.3) mg/dL AST 79 H (17-59) U/L Alkaline Phosphatase 313 H (38-126) U/L Albumin 2.7 L (3.5-5.0) g/dL Assessment and Plan (1) Alcoholic cirrhosis of liver with ascites Narrative/Plan: Patient reporting abdominal pain. He did have paracentesis however only 15 mL of fluid removed and based on fluid studies this was a traumatic tap that was grossly bloody. He is on antibiotic treatment due to underlying UTI with improvement of his white blood cell count. Current Visit: Yes Status: Acute Code(s): K70.31 - ALCOHOLIC CIRRHOSIS OF LIVER WITH ASCITES SNOMED Code(s): 871685357 (2) History of ETOH abuse Current Visit: Yes Status: Acute Code(s): Z87.898 - PERSONAL HISTORY OF OTHER SPECIFIED CONDITIONS SNOMED Code(s): 491301009 Plan: Supportive care Okay for diet, will advance to low sodium regular diet Alcohol abstinence Continue antibiotic therapy Continue Aldactone 100 mg daily and Lasix 40 mg daily Lactulose 20 mg twice a day added due to constipation Patient will need follow-up for HCC screening and continue management of cirrhosis as outpatient Tumor markers within normal limits Thank you for allowing us to participate in the care of the patient we will continue to follow
[2018-12-07] MEDS: traMADol 50 MG TAB PO PRN ×2 (05:22→14:41)
[2018-12-07 06:36] VITALS: BP 111/65; PULSE 71; RESP 18; TEMP 98.1
[2018-12-07] MEDS: HEPARIN SODIUM,PORCINE 5,000 UNIT/ML 1 ML VIAL SQ SCH ×2 (08:12→08:16)
[2018-12-07] MEDS: PANTOPRAZOLE 40 MG TABLET PO SCH (08:13)
[2018-12-07] MEDS: MIDODRINE 5 MG TAB PO SCH ×2 (08:13→13:11)
[2018-12-07] MEDS: METOPROLOL SUCCINATE (ER) 25 MG TAB.ER.24H PO SCH (08:13)
[2018-12-07] MEDS: ACETAMINOPHEN TAB 325 MG TAB PO PRN (08:13)
[2018-12-07] MEDS: FUROSEMIDE 40 MG TAB PO SCH (08:14)
[2018-12-07] MEDS: SPIRONOLACTONE 25 MG TAB PO SCH (08:14)
[2018-12-07] MEDS: NICOTINE 21MG/24HR PATCH TRANSDERM SCH (08:14)
[2018-12-07] MEDS: PIPERACILLIN-TAZOBACTAM 3.375 GM in SODIUM CHLORIDE 0.9% 100 ML IVPB SCH (08:16)
--- NOTE | 2018-12-07 08:37 | PN ---
PROGRESS NOTE DATE OF SERVICE: 12/06/2018. REASON FOR FOLLOW UP: E coli spontaneous bacterial peritonitis. INTERVAL HISTORY: The patient is afebrile. He has been breathing comfortably. Denies having any chest pain or any cough. No worsening abdominal pain or diarrhea. PHYSICAL EXAMINATION: Blood pressure 109/67 with a pulse of 75. Temperature is 97.6. He is 97% on room air. General description is an elderly male up in the chair in no distress. Respiratory system: Unlabored breathing. Clear to auscultation anteriorly. Heart S1, S2. Regular rate and rhythm. ABDOMEN: Soft. No tenderness. Extremities: No edema of the feet. LABS: White count slightly elevated 14,000. DIAGNOSTIC IMPRESSION AND PLAN: Patient with spontaneous bacterial peritonitis. The patient did have history of . However, most of the fluid is loculated and no therapeutic benefits could be the bacteria from the peritoneal fluid was not viable. Sensitivities could not be completed. Currently on Zosyn. He did have an E coli in the urine as well, which was not resistant pathogen. Plan to finish therapy with oral Ceftin and monitor his clinical course closely. Continue supportive care. MMODL / IJN: [id number] /
[2018-12-07 10:02] LABS: Albumin 2.4 g/dL (3.5-5.0); Bilirubin, Delta 0.6 mg/dL (0.0-0.2); Bilirubin,Unconjugated 0.5 mg/dL (0.0-1.1); Total Bilirubin 1.1 mg/dL (0.2-1.3); Total Protein 6.3 g/dL (6.3-8.2)
[2018-12-07 10:04] LABS: Anisocytosis Slight; Basophils # (A) 0.1 k/uL (0-0.2); Basophils % (A) 1 %; Eosinophils # (A) 0.2 k/uL (0-0.7); Eosinophils % (A) 2 %; HCT 35.3 % (39.0-53.0); HGB 10.8 gm/dL (13.0-17.5); Hypochromasia Moderate; Lymphocytes # (A) 1.8 k/uL (1.0-4.8); Lymphocytes % (A) 17 %; MCH 27.4 pg (25.0-35.0); MCHC 30.7 g/dL (31.0-37.0); MCV 89.3 fL (80.0-100.0); Mean Platelet Volume 6.2; Monocytes # (A) 0.6 k/uL (0-1.0); Monocytes % (A) 5 %; Neutrophils # (A) 7.7 k/uL (1.3-7.7); Neutrophils % (A) 74 %; Platelet Count 459 k/uL (150-450); RBC 3.95 m/uL (4.30-5.90); RDW 17.3 % (11.5-15.5); WBC 10.4 k/uL (3.8-10.6)
--- NOTE | 2018-12-07 14:49 | PN ---
PROGRESS NOTE DATE OF SERVICE: 12/07/2018. REASON FOR FOLLOW UP: Spontaneous bacterial peritonitis E coli. INTERVAL HISTORY: The patient is afebrile. He has been breathing comfortably. Denies having any chest pain, or any cough or any worsening abdominal pain. No nausea, vomiting or diarrhea. PHYSICAL EXAMINATION: Blood pressure 111/65 with a pulse of 71, temperature 98.1. He is 97% on room air. General description is an elderly male up in the bed in no distress. Respiratory system: Unlabored breathing. Clear to auscultation anteriorly. Heart S1, S2. Regular rate and rhythm. Abdomen soft. No distention or guarding or rigidity. LABS: Hemoglobin 10.8, white count 10.4, creatinine 0.74. Blood culture has been negative. DIAGNOSTIC IMPRESSION AND PLAN: Patient with spontaneous bacterial peritonitis in this patient who did have underlying liver cirrhosis. Abdominal fluid was mostly loculated. Surgery saw the patient and recommended no surgery. The patient received about 7 days of IV antibiotic therapy. He will be transitioned to oral Ceftin for another 10 days. Prescription sent to pharmacy with close outpatient followup. The patient is afebrile and white count normalized as of today. MMODL / IJN: [id number] /
--- NOTE | 2018-12-13 13:56 | P.DS ---
Providers Date of admission: 11/26/18 13:33 Attending physician: Narendra Prater Consults: 11/26/18 13:46 Consult Physician Stat Consulting Provider: Jose Dowd Consult Reason/Comments: cirrhosis, ascites, leukocytosis Do you want consulting provider notified?: Yes 11/27/18 00:09 Consult Physician Stat Consulting Provider: Lexi Luna Consult Reason/Comments: fever ? infection Do you want consulting provider notified?: Yes, Notify in am 12/03/18 13:11 Consult Physician Routine Consulting Provider: Mason Galan Consult Reason/Comments: Concern for peritoneal carcinomatosis on abd CT Do you want consulting provider notified?: Yes 12/03/18 13:12 Consult Physician Routine Consulting Provider: Justice Olivarez Consult Reason/Comments: Persistant Abdominal Pain Do you want consulting provider notified?: Yes Primary care physician: [facility] Course: Dx Alcoholic liver cirrhosis Hepatosplenomegaly with portal hypertension, and minimal ascites secondary to above Possible spontaneous bacterial peritonitis, with E. coli UTI with E.coli Possible peritoneal carcinomatosis Urinary tract infection. Patient's symptoms improved Current cigarettes smoker History of alcohol abuse History of substance abuse including cocaine Hypertension, essential Hyperlipidemia hospital course; This is a pleasant 63 years old male with past medical history of liver cirrhosis and ascites, mostly alcoholic liver disease. Previous history of drinking alcohol about 10 beers per day and stopped on 05/2018. History of substance abuse and current cigarette smoker. He was sent to the emergency room by his doctor because of his worsening leukocytosis. Patient has been complaining of from generalized abdominal pain mainly on the right upper quadrant for about 2 months now. He is tolerating diet well with no nausea vomiting, normal bowel movements. He has CT of the abdomen and pelvis without contrast showing hepatosplenomegaly. He has paracentesis which was suspicious for spontaneous bacterial peritonitis as the culture was growing E.coli which is sensitive to Zosyn.. Patient was treated with antibiotic Zosyn and infectious disease were following the case. His leukocytosis improved . pt had repeat CAT scan of the abdomen and pelvis without contrast showing Possible peritoneal carcinomatosis, cirrhosis. oncology and surgical team evaluated the pt, oncologist and GI team some blood test which was negative like AFP, CEA and CA 9-19. oncologist recommended pt to f/u with them to repeat CT of the abdomen for follow up to rule out cancer or masses wether abdominal pain resolves or not. pt is made aware of these recommendation and he agrees with it also he understands the risk of cancer when explained to him on the day of discharge pt abdominal pain significantly resolved at his baseline , pt was satisfied with this and wanted to be discharged. his leukocytosis improved to normal at 10.4, bilirubin came back to normal as well 1.1, liver enz were stable, vitals stable , abd pain is controlled and pt did not need more dilauded but could be controlled with ultram and is at baseline. pt was cleared for discharge by many consultants including infectious, GI , and oncology team . pt will be discharged on antibiotics as per ID team Pt was instructed about the problems and management plan and Pt verbalized understanding and acceptance Pt is found stable and can be discharged to the community but needs follow up as outpt. pt agrees with appointments and their timing and stated he will follow up Discharge exam Gen.: Patient alert awake and oriented X 3, NOT IN DISTRESS CVS: s1-s2, RRR, no murmur CHEST:bilateral CTA, no wheezing or crepitation Abdomen: Soft, no tenderness, no distention, positive bowel sounds Extremities: No leg edema or induration time spent : more than 35 min Patient Condition at Discharge: Stable Plan - Discharge Summary Discharge Rx Participant: No New Discharge Prescriptions: New Cefuroxime Axetil [Ceftin] 500 mg PO BID #20 tab Furosemide [Lasix] 40 mg PO DAILY #30 tab Lactulose [Cephulac] 20 gm PO BID PRN #4 ml PRN Reason: Constipation traMADol HCL [Ultram] 100 mg PO Q6HR PRN #40 tab PRN Reason: Moderate Pain Continue Spironolactone 100 mg PO DAILY Pravastatin Sodium [Pravachol] 20 mg PO HS Pantoprazole [Protonix] 40 mg PO BID Mirtazapine [Remeron] 15 mg PO HS Midodrine [ProAmatine] 5 mg PO TID Metoprolol Succinate [Toprol XL] 12.5 mg PO DAILY Discontinued Furosemide [Lasix] 40 mg PO BID Ibuprofen [Motrin] 800 mg PO TID PRN PRN Reason: Pain Discharge Medication List Metoprolol Succinate [Toprol XL] 12.5 mg PO DAILY 11/26/18 [History] Midodrine [ProAmatine] 5 mg PO TID 11/26/18 [History] Mirtazapine [Remeron] 15 mg PO HS 11/26/18 [History] Pantoprazole [Protonix] 40 mg PO BID 11/26/18 [History] Pravastatin Sodium [Pravachol] 20 mg PO HS 11/26/18 [History] Spironolactone 100 mg PO DAILY 11/26/18 [History] Cefuroxime Axetil [Ceftin] 500 mg PO BID #20 tab 12/07/18 [Rx] Furosemide [Lasix] 40 mg PO DAILY #30 tab 12/07/18 [Rx] Lactulose [Cephulac] 20 gm PO BID PRN #4 ml 12/07/18 [Rx] traMADol HCL [Ultram] 100 mg PO Q6HR PRN #40 tab 12/07/18 [Rx] Follow up Appointment(s)/Referral(s): Mason Galan MD [STAFF PHYSICIAN] - 12/23/18 3:45 pm (at the [facility] Office [address] [facility] Lexi Luna MD [STAFF PHYSICIAN] - 12/09/18 11:00 am Jose Dowd MD [STAFF PHYSICIAN] - 12/13/18 11:00 am [facility] [Primary Care Provider] - 12/10/18 2:30 pm Ambulatory/Diagnostic Orders: Complete Blood Count w/diff [LAB.AMB] Time Frame: 3 Days, Location: None Selected Activity/Diet/Wound Care/Special Instructions: [facility] and have paracentesis done frequently If he starts to have any fever or chills, any increase in abdominal pain, any abdominal distention, any shortness of breath or cough, any chest pain racing heart, any lightheadedness or dizziness, please call 911 and come to the ER immediately. activity as tolerated low sodium diet Please continue to follow with Mary [facility]well at [facility] for any future needs. also follow up with the oncologist as instructed, you might need to repeat imaging of your abdominal cavity for follow up of possible masses found in the peritoneal cavity on CT scan of the abdomen Discharge Disposition: HOME WITH HOME HEALTH SERVICES
== END 2018-12-07 14:59 | disposition home health service (06) | DRG 371 ==
LOC: EC 09:31 → 4SSUR 13:33 → 4MS4W 15:01
PROVIDERS: ADMIT Hospitalist; ATTEND Hospitalist
PROC: 0W9G3ZX Drainage of Peritoneal Cavity, Percutaneous Approach, Diagnostic (ICD-10-PCS; principal; 2018-11-27)
DX: K65.2 Spontaneous bacterial peritonitis (principal); K76.7 Hepatorenal syndrome; N17.9 Acute kidney failure, unspecified; K76.6 Portal hypertension; N39.0 Urinary tract infection, site not specified; B96.20 Unspecified Escherichia coli [E. coli] as the cause of diseases classified elsewhere; E78.5 Hyperlipidemia, unspecified; E86.0 Dehydration; F17.210 Nicotine dependence, cigarettes, uncomplicated; K70.31 Alcoholic cirrhosis of liver with ascites; I12.9 Hypertensive chronic kidney disease with stage 1 through stage 4 chronic kidney disease, or unspecified chronic kidney disease; N18.9 Chronic kidney disease, unspecified; I25.10 Atherosclerotic heart disease of native coronary artery without angina pectoris; I49.3 Ventricular premature depolarization; K21.9 Gastro-esophageal reflux disease without esophagitis; K59.00 Constipation, unspecified; M15.9 Polyosteoarthritis, unspecified; Z79.899 Other long term (current) drug therapy; Z80.9 Family history of malignant neoplasm, unspecified; Z82.49 Family history of ischemic heart disease and other diseases of the circulatory system; Z83.3 Family history of diabetes mellitus; R41.3 Other amnesia; Z87.820 Personal history of traumatic brain injury; F14.11 Cocaine abuse, in remission; K72.90 Hepatic failure, unspecified without coma
CPT/HCPCS: 36415; 49083; 71260; 74176; 76705; 80048; 80053; 80076; 81003; 82105; 82140; 82378; 82945; 83605; 83615; 84484; 85025; 85027; 85610; 85730; 86301; 87040; 87070; 87077; 87086; 87186; 87205; 88108; 88305; 89050; 93005; 94760; 96361; 96365; 96366; 96375; 99285

== ENCOUNTER 2018-12-20 13:02 | Inpatient (IN) | payer MEDICARE, OTHER ==
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
[2018-12-20 14:45] LABS: Appearance,Urine Clear (Clear); Bilirubin,Urine Negative (Negative); Blood,Urine Negative (Negative); Color,Urine Yellow; Glucose,Urine (UA) Negative (Negative); Ketones,Urine Negative (Negative); Leukocyte Esterase,Urine Negative (Negative); Nitrite,Urine Negative (Negative); PH, Urine 5.5 (5.0-8.0); Protein,Urine Negative (Negative); Specific Gravity,Urine 1.012 (1.001-1.035); Urobilinogen,Urine <2.0 mg/dL (<2.0)
--- NOTE | 2018-12-20 14:51 | XR ---
EXAMINATION TYPE: XR chest 2V DATE OF EXAM: 12/20/2018 COMPARISON: None INDICATION: Cough elevated white count TECHNIQUE: Frontal and lateral views of the chest are obtained. FINDINGS: The heart size is normal. The pulmonary vasculature is normal. The lungs are clear. IMPRESSION: 1. No acute pulmonary process.
[2018-12-20 14:55] LABS: Anisocytosis Slight; Basophils # (A) 0.1 k/uL (0-0.2); Basophils % (A) 1 %; Eosinophils # (A) 0.1 k/uL (0-0.7); Eosinophils % (A) 1 %; HCT 35.8 % (39.0-53.0); HGB 11.4 gm/dL (13.0-17.5); Lymphocytes # (A) 2.5 k/uL (1.0-4.8); Lymphocytes % (A) 16 %; MCH 27.7 pg (25.0-35.0); MCHC 31.9 g/dL (31.0-37.0); MCV 86.7 fL (80.0-100.0); Mean Platelet Volume 6.2; Monocytes % (A) 7 %; Neutrophils # (A) 11.4 k/uL (1.3-7.7); Neutrophils % (A) 75 %; Platelet Count 460 k/uL (150-450); RBC 4.13 m/uL (4.30-5.90); RDW 17.7 % (11.5-15.5); WBC 15.2 k/uL (3.8-10.6)
[2018-12-20 14:57] LABS: ALT 58 U/L (21-72); AST 88 U/L (17-59); Albumin 2.9 g/dL (3.5-5.0); Alkaline Phosphatase 247 U/L (38-126); Anion Gap 8 mmol/L; Blood Urea Nitrogen 21 mg/dL (9-20); Calcium 8.9 mg/dL (8.4-10.2); Carbon Dioxide 29 mmol/L (22-30); Chloride 98 mmol/L (98-107); Glucose 159 mg/dL (74-99); Magnesium 1.6 mg/dL (1.6-2.3); Potassium 4.2 mmol/L (3.5-5.1); Sodium 135 mmol/L (137-145); Total Bilirubin 1.2 mg/dL (0.2-1.3); Total Protein 7.1 g/dL (6.3-8.2)
[2018-12-20 15:06] LABS: Creatine Kinase <20 U/L (55-170)
[2018-12-20 15:15] LABS: Creatine Kinase MB <0.2 ng/mL (0.0-2.4)
[2018-12-20] MEDS ORDERED: HEPARIN SODIUM,PORCINE 5,000 UNIT/ML 1 ML VIAL IV PRN (15:43)
[2018-12-20] MEDS ORDERED: HEPARIN SODIUM,PORCINE 5,000 UNIT/ML 1 ML VIAL IV ONE (15:43)
[2018-12-20] MEDS ORDERED: HEPARIN SOD,PORK IN 0.45% NACL 25,000 UNIT in 0.45% NACL 1 250ML.BAG IV SCH (15:45)
[2018-12-20] MEDS ORDERED: NALOXONE 0.4 MG/ML 1 ML VIAL IV PRN (16:13)
[2018-12-20] MEDS ORDERED: HYDROmorphone 2 MG TAB PO PRN (16:13)
[2018-12-20] MEDS ORDERED: hydrOXYzine PAMOATE 25 MG CAP PO PRN (16:15)
[2018-12-20] MEDS: SODIUM CHLORIDE 0.9% 1,000 ML IV SCH (19:02)
[2018-12-20] MEDS: NICOTINE 21MG/24HR PATCH TRANSDERM SCH (23:36)
[2018-12-20] MEDS: MIDODRINE 5 MG TAB PO SCH (23:36)
[2018-12-20] MEDS: DOCUSATE 100 MG CAP PO SCH (23:36)
[2018-12-20] MEDS: MIRTAZAPINE 15 MG TAB PO SCH (23:36)
[2018-12-20] MEDS: MORPHINE SULFATE ER 15 MG TABLET PO SCH (23:37)
[2018-12-20] MEDS: PRAVASTATIN SODIUM 20 MG TAB PO SCH (23:37)
[2018-12-21] MEDS: metroNIDAZOLE-NS PMX 500 MG in SALINE 1 100ML.BAG IVPB SCH ×4 (00:58→23:40)
[2018-12-21] MEDS: METOPROLOL SUCCINATE (ER) 25 MG TAB.ER.24H PO SCH (06:36)
[2018-12-21] MEDS: FUROSEMIDE 40 MG TAB PO SCH ×2 (06:36→15:42)
[2018-12-21] MEDS: MIDODRINE 5 MG TAB PO SCH ×3 (06:36→23:40)
[2018-12-21] MEDS: DOCUSATE 100 MG CAP PO SCH ×2 (06:36→21:43)
[2018-12-21] MEDS: PANTOPRAZOLE 40 MG TABLET PO SCH ×2 (06:37→15:42)
[2018-12-21] MEDS: FERROUS SULFATE 325 MG TAB PO SCH (06:37)
[2018-12-21] MEDS: MORPHINE SULFATE ER 15 MG TABLET PO SCH ×3 (06:37→23:40)
[2018-12-21] MEDS: SPIRONOLACTONE 25 MG TAB PO SCH (09:07)
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
[2018-12-21 10:53] LABS: Anisocytosis Slight; HGB 10.7 gm/dL (13.0-17.5); Hypochromasia Slight; MCH 27.5 pg (25.0-35.0); MCHC 31.6 g/dL (31.0-37.0); MCV 87.1 fL (80.0-100.0); Mean Platelet Volume 7.5; Platelet Count 389 k/uL (150-450); RDW 17.4 % (11.5-15.5); WBC 15.5 k/uL (3.8-10.6)
[2018-12-21 11:16] LABS: ALT 54 U/L (21-72); AST 84 U/L (17-59); Albumin 2.6 g/dL (3.5-5.0); Alkaline Phosphatase 221 U/L (38-126); Anion Gap 5 mmol/L; Blood Urea Nitrogen 19 mg/dL (9-20); Calcium 8.5 mg/dL (8.4-10.2); Carbon Dioxide 31 mmol/L (22-30); Chloride 98 mmol/L (98-107); Glucose 117 mg/dL (74-99); Potassium 4.2 mmol/L (3.5-5.1); Sodium 134 mmol/L (137-145); Total Bilirubin 0.9 mg/dL (0.2-1.3); Total Protein 6.7 g/dL (6.3-8.2)
--- NOTE | 2018-12-21 12:11 | US ---
EXAMINATION TYPE: US abdomen limited DATE OF EXAM: 12/21/2018 COMPARISON: US December 05, 2018. CT abdomen and pelvis December 02, 2018. CLINICAL HISTORY: abd distension. Recurrent nonsimple peritoneal ascites or fluid with septations redemonstrated most prominent in the bilateral lower quadrants is identified moderate to large in volume. IMPRESSION: As above.
[2018-12-21] MEDS ORDERED: LORazepam 1 MG TAB PO STA (12:58)
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
--- NOTE | 2018-12-21 15:26 | P.PN ---
Subjective 58-year-old gentleman was admitted secondary to leukocytosis patient has mild tenderness in the abdomen because of which t gastroenterology is recommending continued. IV antibiotics and leukocytosis improving and WAS OPTED WHICH DID SHOW HIS ASCITES PATIENT MAY NEED A DIAGNOSTIC PARACENTESIS. Constitutional: Denied any fatigue denied any fever. Cardio vascular: denied any chest pain, palpitations Gastrointestinal denied any nausea vomiting Pulmonary: Denied any shortness of breath cough Neurologic denied any new focal deficits All inpatient medications were reviewed and appropriate changes in these medications as dictated in the interval history and assessment and plan. Objective - Vital Signs Vital signs: Vital Signs Temp 100.9 F H 12/21/18 15:00 Pulse 102 H 12/21/18 15:00 Resp 16 12/21/18 15:21 BP 117/65 12/21/18 15:00 Pulse Ox 96 12/21/18 15:00 Intake & Output 12/20/18 12/21/18 12/21/18 18:59 06:59 18:59 Weight 88.451 kg Other: Voiding Method Toilet Toilet # Voids 3 3 # Bowel Movements 0 - Exam s. PHYSICAL EXAMINATION: GENERAL: The patient is alert and oriented x3, not in any acute distress. Well developed, well nourished. HEENT: Pupils are round and equally reacting to light. EOMI. does have scleral icterus. No conjunctival pallor. Normocephalic, atraumatic. No pharyngeal erythema. No thyromegaly. CARDIOVASCULAR: S1 and S2 present. No murmurs, rubs, or gallops. PULMONARY: Chest is clear to auscultation, no wheezing or crackles. ABDOMEN: Distended minimal diffuse tenderness some bruises on the abdomen patient does have shifting dullness MUSCULOSKELETAL: No joint swelling or deformity. EXTREMITIES: No cyanosis, clubbing, or pedal edema. NEUROLOGICAL: Gross neurological examination did not reveal any focal deficits. SKIN: No rashes. - Labs CBC & Chem 7: 12/21/18 10:41 12/21/18 10:41 Labs: Abnormal Lab Results - Last 24 Hours (Table) 12/21/18 12/21/18 Range/Units 10:41 10:41 WBC 15.5 H (3.8-10.6) k/uL RBC 3.90 L (4.30-5.90) m/uL Hgb 10.7 L (13.0-17.5) gm/dL Hct 34.0 L (39.0-53.0) % RDW 17.4 H (11.5-15.5) % Sodium 134 L (137-145) mmol/L Carbon Dioxide 31 H (22-30) mmol/L Glucose 117 H (74-99) mg/dL AST 84 H (17-59) U/L Alkaline Phosphatase 221 H (38-126) U/L Albumin 2.6 L (3.5-5.0) g/dL Assessment and Plan Plan: -Leukocytosis: Possibility of spontaneous Bactrim peritonitis cannot be ruled out continue with IV antibiotics until leukocytosis improves -Cirrhosis with ascites continue with Aldactone and Lasix. -Gastroesophageal reflux disease -coronary artery disease -Hypertension -Continue nicotine use: Counseling was provided For above-mentioned chronic medical problems A shouldn't will be resumed on appropriate home medications
[2018-12-21] MEDS: SODIUM CHLORIDE 0.9% 1,000 ML IV SCH (15:45)
[2018-12-21] MEDS: MIRTAZAPINE 15 MG TAB PO SCH (21:43)
[2018-12-21] MEDS: NICOTINE 21MG/24HR PATCH TRANSDERM SCH (21:43)
[2018-12-21] MEDS: PRAVASTATIN SODIUM 20 MG TAB PO SCH (21:43)
[2018-12-22] MEDS: DOCUSATE 100 MG CAP PO SCH ×2 (06:12→21:29)
[2018-12-22] MEDS: METOPROLOL SUCCINATE (ER) 25 MG TAB.ER.24H PO SCH (06:12)
[2018-12-22] MEDS: FERROUS SULFATE 325 MG TAB PO SCH (06:12)
[2018-12-22] MEDS: PANTOPRAZOLE 40 MG TABLET PO SCH ×2 (06:13→16:12)
[2018-12-22] MEDS: FUROSEMIDE 40 MG TAB PO SCH (06:13)
[2018-12-22] MEDS: MIDODRINE 5 MG TAB PO SCH ×3 (06:13→22:29)
[2018-12-22] MEDS: MORPHINE SULFATE ER 15 MG TABLET PO SCH ×3 (06:15→22:29)
[2018-12-22] MEDS: SPIRONOLACTONE 25 MG TAB PO SCH (08:09)
[2018-12-22] MEDS: metroNIDAZOLE-NS PMX 500 MG in SALINE 1 100ML.BAG IVPB SCH (08:11)
[2018-12-22 09:03] LABS: ALT 57 U/L (21-72); AST 98 U/L (17-59); Albumin 2.9 g/dL (3.5-5.0); Alkaline Phosphatase 260 U/L (38-126); Anion Gap 7 mmol/L; Blood Urea Nitrogen 19 mg/dL (9-20); Calcium 8.8 mg/dL (8.4-10.2); Carbon Dioxide 30 mmol/L (22-30); Chloride 96 mmol/L (98-107); Glucose 106 mg/dL (74-99); Potassium 4.3 mmol/L (3.5-5.1); Sodium 133 mmol/L (137-145); Total Bilirubin 1.5 mg/dL (0.2-1.3); Total Protein 7.4 g/dL (6.3-8.2)
[2018-12-22 09:04] LABS: Anisocytosis Slight; Basophils # (A) 0.1 k/uL (0-0.2); Basophils % (A) 1 %; Eosinophils # (A) 0.1 k/uL (0-0.7); Eosinophils % (A) 1 %; HCT 38.7 % (39.0-53.0); HGB 12.3 gm/dL (13.0-17.5); Lymphocytes # (A) 2.3 k/uL (1.0-4.8); Lymphocytes % (A) 15 %; MCH 27.8 pg (25.0-35.0); MCHC 31.8 g/dL (31.0-37.0); MCV 87.6 fL (80.0-100.0); Mean Platelet Volume 6.6; Monocytes # (A) 0.9 k/uL (0-1.0); Monocytes % (A) 6 %; Neutrophils # (A) 11.4 k/uL (1.3-7.7); Neutrophils % (A) 77 %; Platelet Count 416 k/uL (150-450); RBC 4.42 m/uL (4.30-5.90); RDW 17.6 % (11.5-15.5); WBC 14.9 k/uL (3.8-10.6)
--- NOTE | 2018-12-22 13:10 | P.PN ---
Subjective 58-year-old gentleman was admitted secondary to leukocytosis patient has mild tenderness in the abdomen because of which t gastroenterology is recommending continued. IV antibiotics and leukocytosis improving and WAS OPTED WHICH DID SHOW HIS ASCITES PATIENT MAY NEED A DIAGNOSTIC PARACENTESIS. 12/22/2018 Patient had low-grade fever yesterday and today will undergo possibly paracentesis tomorrow although there is no significant amount of fluid but still has ascites with septations will not will need ultrasound guided paracentesis. Patient will continued on IV antibiotics patient has hypovolemic hyponatremia and his saturations are going down because of which I'll switch his Lasix to IV patient does have significant swelling in both legs. Constitutional: Denied any fatigue denied any fever. Cardio vascular: denied any chest pain, palpitations Gastrointestinal denied any nausea vomiting Pulmonary: Denied any shortness of breath cough Neurologic denied any new focal deficits All inpatient medications were reviewed and appropriate changes in these medications as dictated in the interval history and assessment and plan. Objective - Vital Signs Vital signs: Vital Signs Temp 99.3 F 12/22/18 06:03 Pulse 82 12/22/18 06:03 Resp 16 12/22/18 08:00 BP 110/72 12/22/18 06:03 Pulse Ox 92 L 12/22/18 06:03 Intake & Output 12/21/18 12/22/18 12/22/18 18:59 06:59 18:59 Output Total 900 Balance -900 Output: Urine 900 Other: Voiding Method Toilet # Voids 3 # Bowel Movements 0 - Exam s. PHYSICAL EXAMINATION: GENERAL: The patient is alert and oriented x3, not in any acute distress. Well developed, well nourished. HEENT: Pupils are round and equally reacting to light. EOMI. does have scleral icterus. No conjunctival pallor. Normocephalic, atraumatic. No pharyngeal erythema. No thyromegaly. CARDIOVASCULAR: S1 and S2 present. No murmurs, rubs, or gallops. PULMONARY: Chest is clear to auscultation, no wheezing or crackles. ABDOMEN: Distended minimal diffuse tenderness some bruises on the abdomen patient does have shifting dullness MUSCULOSKELETAL: No joint swelling or deformity. EXTREMITIES: No cyanosis, clubbing, or pedal edema. NEUROLOGICAL: Gross neurological examination did not reveal any focal deficits. SKIN: No rashes. - Labs CBC & Chem 7: 03/03/19 08:16 12/22/18 08:16 Labs: Abnormal Lab Results - Last 24 Hours (Table) 12/22/18 12/22/18 Range/Units 08:16 08:16 WBC 14.9 H (3.8-10.6) k/uL Hgb 12.3 L (13.0-17.5) gm/dL Hct 38.7 L (39.0-53.0) % RDW 17.6 H (11.5-15.5) % Neutrophils # 11.4 H (1.3-7.7) k/uL Sodium 133 L (137-145) mmol/L Chloride 96 L (98-107) mmol/L Glucose 106 H (74-99) mg/dL Total Bilirubin 1.5 H (0.2-1.3) mg/dL AST 98 H (17-59) U/L Alkaline Phosphatase 260 H (38-126) U/L Albumin 2.9 L (3.5-5.0) g/dL Microbiology - Last 24 Hours (Table) 12/20/18 14:10 Blood Culture - Preliminary Blood No Growth after 24 hours Assessment and Plan Plan: -Leukocytosis: Possibility of spontaneous bacterial peritonitis cannot be ruled out continue with IV antibiotics until leukocytosis improves Hypervolemic hyponatremia and volume overload secondary to cirrhosis: Lasix will be switched to IV -Cirrhosis with ascites continue with Aldactone and Lasix. -Gastroesophageal reflux disease -coronary artery disease -Hypertension -Continue nicotine use: Counseling was provided For above-mentioned chronic medical problems A shouldn't will be resumed on appropriate home medications
--- NOTE | 2018-12-22 13:58 | PN ---
PROGRESS NOTE DATE OF DICTATION: December 22, 2018 Patient is a 63-year-old pleasant white male admitted to the hospital with a possible SBP, has some ascites and leukocytosis on broad-spectrum antibiotics for possible is SBP and doing well. This morning he states that the abdominal pain has improved. No nausea, vomiting. No fever, chills, night sweats. PHYSICAL EXAMINATION: Appears comfortable. Blood pressure 107/68, pulse rate 82, temperature 99.3. HEENT examination unremarkable. Conjunctivae pink. Sclerae anicteric. Oral cavity no lesions. NECK: No jugular venous distention or lymph node enlargement. The chest was clear to auscultation. HEART: Regular rate and rhythm. ABDOMEN: Soft. He was slightly tender, but it was slightly distended. Overall much better than yesterday. Extremities: No pedal edema. NEUROLOGIC: Alert and oriented x3. No focal deficits. LABS: WBC 14.9, hemoglobin 12.3, platelets are normal. Basic metabolic panel, T bilirubin 1.5, AST 98, ALT 56, alkaline phosphatase 260. IMPRESSION: 1. History of alcoholic cirrhosis of the liver with portal hypertension. 2. Ascites, possible SBP on broad-spectrum antibiotics, doing much better. He had an ultrasound done of the abdomen done yesterday which showed some peritoneal ascites that showed moderate to large volume ascites, presently on Lasix and Aldactone. RECOMMENDATIONS: 1. Continue with broad-spectrum antibiotics. 2. We will schedule for large volume paracentesis tomorrow. 3. Continue with Lasix and Aldactone. 4. If symptoms improve, he can be discharged home tomorrow. Thank you for this consultation. MMODL / IJN: [id number] /
[2018-12-22] MEDS: SODIUM CHLORIDE 0.9% 1,000 ML IV SCH (16:13)
[2018-12-22] MEDS: LORazepam 1 MG TAB PO PRN (21:27)
[2018-12-22] MEDS: MIRTAZAPINE 15 MG TAB PO SCH (21:28)
[2018-12-22] MEDS: PRAVASTATIN SODIUM 20 MG TAB PO SCH (21:28)
[2018-12-22] MEDS: FUROSEMIDE 10 MG/ML 4 ML VIAL IV SCH (21:29)
[2018-12-22] MEDS: NICOTINE 21MG/24HR PATCH TRANSDERM SCH (21:34)
[2018-12-23] MEDS: PANTOPRAZOLE 40 MG TABLET PO SCH ×2 (06:02→14:39)
[2018-12-23] MEDS: MIDODRINE 5 MG TAB PO SCH ×2 (06:02→14:39)
[2018-12-23] MEDS: DOCUSATE 100 MG CAP PO SCH (06:02)
[2018-12-23] MEDS: METOPROLOL SUCCINATE (ER) 25 MG TAB.ER.24H PO SCH (06:03)
[2018-12-23] MEDS: MORPHINE SULFATE ER 15 MG TABLET PO SCH (06:03)
[2018-12-23] MEDS: FERROUS SULFATE 325 MG TAB PO SCH (06:03)
[2018-12-23] MEDS: FUROSEMIDE 10 MG/ML 4 ML VIAL IV SCH (07:44)
[2018-12-23] MEDS: SPIRONOLACTONE 25 MG TAB PO SCH (07:45)
[2018-12-23 09:37] LABS: Anisocytosis Slight; HCT 35.4 % (39.0-53.0); HGB 11.2 gm/dL (13.0-17.5); Hypochromasia Slight; MCH 27.6 pg (25.0-35.0); MCHC 31.5 g/dL (31.0-37.0); MCV 87.5 fL (80.0-100.0); Mean Platelet Volume 7.1; Platelet Count 390 k/uL (150-450); RBC 4.05 m/uL (4.30-5.90); RDW 17.5 % (11.5-15.5); WBC 13.1 k/uL (3.8-10.6)
[2018-12-23 09:43] LABS: INR 1.4 (<1.2)
[2018-12-23 09:48] LABS: ALT 47 U/L (21-72); AST 87 U/L (17-59); Albumin 2.7 g/dL (3.5-5.0); Alkaline Phosphatase 207 U/L (38-126); Anion Gap 8 mmol/L; Blood Urea Nitrogen 18 mg/dL (9-20); Calcium 8.8 mg/dL (8.4-10.2); Carbon Dioxide 29 mmol/L (22-30); Chloride 98 mmol/L (98-107); Glucose 143 mg/dL (74-99); Potassium 3.8 mmol/L (3.5-5.1); Sodium 135 mmol/L (137-145); Total Bilirubin 1.5 mg/dL (0.2-1.3); Total Protein 6.9 g/dL (6.3-8.2)
[2018-12-23] MEDS ORDERED: CHLOROPROCAINE 3% 30 MG/ML 20 ML VIAL CAUDALBLCK PRN (10:10)
[2018-12-23 11:20] VITALS: RESP 16
[2018-12-23 12:07] VITALS: BP 105/67; PULSE 90; TEMP 99.3
[2018-12-23] MEDS: LORazepam 1 MG TAB PO PRN (12:23)
--- NOTE | 2018-12-23 14:40 | US ---
Therapeutic and diagnostic paracentesis. DATE OF EXAM: 12/23/2018 CLINICAL HISTORY: Ascites The procedure was discussed with the patient. The risks, complications, benefits, and alternatives we re discussed and any questions were answered. Informed consent was obtained. The patient was placed s upine on the ultrasound table and prepped and draped in the usual sterile fashion. All elements of maximal barrier technique were utilized. Under ultrasound guidance, access into the left lower quadrant was obtained, via the paracentesis catheter system and direct ultrasound guidance . Approximately 1.4 liters of serous fluid was removed. The patient was stable throughout the procedure and remained stable upon discharge from Department of Radiology. Sample sent to pathology for analys is. IMPRESSION: Successful paracentesis under ultrasound guidance.
--- NOTE | 2018-12-23 16:37 | P.DS ---
Providers Date of admission: 12/20/18 16:16 Expected date of discharge: 12/23/18 Attending physician: Fidencio Gonzalez Consults: 12/20/18 18:41 Consult Physician Routine Consulting Provider: Liliana Mccray Consult Reason/Comments: known, ascites, cirrhosis Do you want consulting provider notified?: Yes Primary care physician: [facility] Course: Final Diagnoses: -Leukocytosis: Possibility of spontaneous bacterial peritonitis cannot be ruled out. Hypervolemic hyponatremia and volume overload secondary to cirrhosis -Cirrhosis with ascites, status post paracentesis -Gastroesophageal reflux disease -coronary artery disease -Hypertension -Continue nicotine use: Counseling provided Hospital course:58-year-old gentleman was admitted secondary to leukocytosis patient has mild tenderness in the abdomen because of which t gastroenterology is recommending continued. IV antibiotics and leukocytosis improving and WAS OPTED WHICH DID SHOW HIS ASCITES PATIENT MAY NEED A DIAGNOSTIC PARACENTESIS. 12/22/2018 Patient had low-grade fever yesterday and today will undergo possibly paracentesis tomorrow although there is no significant amount of fluid but still has ascites with septations will not will need ultrasound guided paracentesis. Patient will continued on IV antibiotics patient has hypovolemic hyponatremia and his saturations are going down because of which I'll switch his Lasix to IV patient does have significant swelling in both legs. 12/23/2018 no overnight events. Status post paracentesis, with 1.4 L drained. Maintained on IV antibiotic. Leukocytosis trending down, 13.1. EXAMINATION: GENERAL: The patient is alert and oriented x3, not in any acute distress. Well developed, well nourished. CARDIOVASCULAR: S1 and S2 present. No murmurs, rubs, or gallops. PULMONARY: Chest is clear to auscultation, no wheezing or crackles. ABDOMEN: Distended minimal diffuse tenderness some bruises on the abdomen. Positive bowel sounds EXTREMITIES: No cyanosis, clubbing, or pedal edema. NEUROLOGICAL: Gross neurological examination did not reveal any focal deficits. The impression and plan of care has been dictated as directed. : I performed a history and examination of this patient, discussed the same with the dictator. I agree with the dictator's note ,documented as a scribe. Any additional findings or plans will be noted. Time taken: 35 minutes Patient Condition at Discharge: Stable Plan - Discharge Summary Discharge Rx Participant: Yes New Discharge Prescriptions: New Cefuroxime Axetil [Ceftin] 500 mg PO BID #14 tab Nicotine 21Mg/24Hr Patch [Habitrol] 1 patch TRANSDERM HS patch Continue Spironolactone 100 mg PO DAILY Pravastatin Sodium [Pravachol] 20 mg PO HS Pantoprazole [Protonix] 40 mg PO BID@0700,1500 Midodrine [ProAmatine] 5 mg PO TID@0700,1500,2300 Metoprolol Succinate [Toprol XL] 12.5 mg PO DAILY@0700 Morphine Sulfate ER [Ms Contin] 15 mg PO TID@0700,1500,2300 hydrOXYzine PAMOATE [Vistaril] 25 mg PO HS PRN PRN Reason: Anxiety Ferrous Sulfate [Iron (65 MG Elemental)] 325 mg PO DAILY@0700 Docusate [Colace] 200 mg PO HS Docusate [Colace] 100 mg PO DAILY@0700 Mirtazapine 30 mg PO HS Furosemide [Lasix] 40 mg PO BID@0700,1500 Discharge Medication List Metoprolol Succinate [Toprol XL] 12.5 mg PO DAILY@0700 11/26/18 [History] Midodrine [ProAmatine] 5 mg PO TID@0700,1500,2300 11/26/18 [History] Pantoprazole [Protonix] 40 mg PO BID@0700,1500 11/26/18 [History] Pravastatin Sodium [Pravachol] 20 mg PO HS 11/26/18 [History] Spironolactone 100 mg PO DAILY 11/26/18 [History] Docusate [Colace] 100 mg PO DAILY@0700 12/20/18 [History] Docusate [Colace] 200 mg PO HS 12/20/18 [History] Ferrous Sulfate [Iron (65 MG Elemental)] 325 mg PO DAILY@0700 12/20/18 [History] Furosemide [Lasix] 40 mg PO BID@0700,1500 12/20/18 [History] Mirtazapine 30 mg PO HS 12/20/18 [History] Morphine Sulfate ER [Ms Contin] 15 mg PO TID@0700,1500,2300 12/20/18 [History] hydrOXYzine PAMOATE [Vistaril] 25 mg PO HS PRN 12/20/18 [History] Cefuroxime Axetil [Ceftin] 500 mg PO BID #14 tab 12/23/18 [Rx] Nicotine 21Mg/24Hr Patch [Habitrol] 1 patch TRANSDERM HS patch 12/23/18 [Rx] Follow up Appointment(s)/Referral(s): Liliana Mccray MD [STAFF PHYSICIAN] - 01/06/19 11:30 am [facility],Clinic [Primary Care Provider] - 3 Days Ambulatory/Diagnostic Orders: Complete Blood Count w/diff [LAB.AMB] Time Frame: 3 Days, Location: None Selected Patient Instructions/Handouts: Ascites (DC), Paracentesis (DC) Activity/Diet/Wound Care/Special Instructions: Pending paracentesis, GI clearance and final DC recommendations Discharge Disposition: HOME SELF-CARE
== END 2018-12-23 14:58 | disposition home or self-care (01) | DRG 432 ==
LOC: EC 13:02 → 4MS4W 16:16
PROVIDERS: ADMIT Internal Medicine; ATTEND Internal Medicine
PROC: 0W9G3ZX Drainage of Peritoneal Cavity, Percutaneous Approach, Diagnostic (ICD-10-PCS; principal; 2018-12-23)
DX: K70.31 Alcoholic cirrhosis of liver with ascites (principal); K65.2 Spontaneous bacterial peritonitis; E87.1 Hypo-osmolality and hyponatremia; K76.6 Portal hypertension; E78.5 Hyperlipidemia, unspecified; E87.70 Fluid overload, unspecified; Z71.6 Tobacco abuse counseling; F17.210 Nicotine dependence, cigarettes, uncomplicated; I10 Essential (primary) hypertension; I25.10 Atherosclerotic heart disease of native coronary artery without angina pectoris; K21.9 Gastro-esophageal reflux disease without esophagitis; Z79.899 Other long term (current) drug therapy; Z82.49 Family history of ischemic heart disease and other diseases of the circulatory system; Z83.3 Family history of diabetes mellitus; Z80.9 Family history of malignant neoplasm, unspecified; F14.11 Cocaine abuse, in remission; F12.11 Cannabis abuse, in remission; F10.21 Alcohol dependence, in remission; Z87.01 Personal history of pneumonia (recurrent); Z87.820 Personal history of traumatic brain injury; Z88.4 Allergy status to anesthetic agent; Z88.5 Allergy status to narcotic agent
CPT/HCPCS: 36415; 49083; 71046; 76705; 80053; 81003; 82550; 82553; 83735; 85025; 85027; 85610; 87040; 87070; 87205; 96365; 99284

== ENCOUNTER 2019-01-06 11:45 | Emergency (ER) | payer OTHER ==
[2019-01-06 12:05] VITALS: RESP 18
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
[2019-01-06 13:30] LABS: Anisocytosis Slight; Basophils # (A) 0.1 k/uL (0-0.2); Basophils % (A) 1 %; Eosinophils # (A) 0.3 k/uL (0-0.7); Eosinophils % (A) 2 %; HCT 37.4 % (39.0-53.0); HGB 11.6 gm/dL (13.0-17.5); Lymphocytes # (A) 2.3 k/uL (1.0-4.8); Lymphocytes % (A) 16 %; MCH 27.4 pg (25.0-35.0); MCHC 31.1 g/dL (31.0-37.0); MCV 88.1 fL (80.0-100.0); Mean Platelet Volume 6.2; Monocytes # (A) 0.9 k/uL (0-1.0); Monocytes % (A) 6 %; Neutrophils # (A) 10.9 k/uL (1.3-7.7); Neutrophils % (A) 75 %; Platelet Count 447 k/uL (150-450); RBC 4.24 m/uL (4.30-5.90); RDW 17.5 % (11.5-15.5); WBC 14.5 k/uL (3.8-10.6)
[2019-01-06 13:37] LABS: INR 1.1 (<1.2); Prothrombin Time 11.5 sec (9.0-12.0)
[2019-01-06 13:38] LABS: Partial Thromboplastin Time 26.9 sec (22.0-30.0)
[2019-01-06 13:46] LABS: ALT 49 U/L (21-72); AST 90 U/L (17-59); Alkaline Phosphatase 217 U/L (38-126); Anion Gap 9 mmol/L; Blood Urea Nitrogen 15 mg/dL (9-20); Calcium 9.2 mg/dL (8.4-10.2); Carbon Dioxide 29 mmol/L (22-30); Chloride 96 mmol/L (98-107); Glucose 98 mg/dL (74-99); Magnesium 1.6 mg/dL (1.6-2.3); Phosphorus 3.8 mg/dL (2.5-4.5); Potassium 4.6 mmol/L (3.5-5.1); Sodium 134 mmol/L (137-145); Total Bilirubin 1.2 mg/dL (0.2-1.3); Total Protein 7.3 g/dL (6.3-8.2)
[2019-01-06 15:31] VITALS: BP 105/73; PULSE 73; TEMP 98.6
== END 2019-01-06 15:31 | disposition home or self-care (01) ==
LOC: EC 11:45
DX: D72.829 Elevated white blood cell count, unspecified (principal); I25.10 Atherosclerotic heart disease of native coronary artery without angina pectoris; K21.9 Gastro-esophageal reflux disease without esophagitis; I10 Essential (primary) hypertension; M19.90 Unspecified osteoarthritis, unspecified site; F17.200 Nicotine dependence, unspecified, uncomplicated; Z79.82 Long term (current) use of aspirin; Z79.891 Long term (current) use of opiate analgesic; Z79.899 Other long term (current) drug therapy
CPT/HCPCS: 36415; 80053; 82140; 83735; 84100; 85025; 85610; 85730; 99283

== ENCOUNTER → 2019-02-27 | Outpatient (CLI) | payer OTHER ==
[2019-02-27 13:36] LABS: Blood Urea Nitrogen 17 mg/dL (9-20)
--- NOTE | 2019-02-27 15:24 | CT ---
EXAMINATION TYPE: CT abdomen pelvis w con DATE OF EXAM: 02/27/2019 COMPARISON: 12/02/2018 HISTORY: 63 year-old male abdominal pain and distention TECHNIQUE: Contiguous axial scanning of the abdomen and pelvis following administration of 100 ml Iso zenaida 300 IV contrast. Delayed images through the kidneys and coronal/sagittal reconstructions perform ed. CT DLP: 1097.3 mGycm Automated exposure control for dose reduction was used. FINDINGS: Mild to moderate bilateral gynecomastia. Heart normal size without pericardial effusion. Coronary ves santhosh calcifications are present. Tiny pleural-based calcifications at the costophrenic angles, possible sequela of prior granulomatous disease. No pleural effusion. Liver borderline in size at 17.6 cm with slight contour nodularity. Vague area of hypervascularity in the mid liver superiorly measuring 4.2 cm without clear correlate on the delayed kidney images, poss ible vascular shunting. There is some heterogeneous tissue density in the gallbladder fossa that could represent a contracted gallbladder containing multiple gallstones. Adrenal glands and pancreas appear within normal limits. Spleen enlarged at 15.6 cm. Multiple hypodense lesions within the kidneys likely cysts. The largest measures 4.1 cm posteriorly i n the right kidney. A few mildly dilated small bowel loops in the upper abdomen measuring up to 2.3 cm suggesting a gener alized ileus. Oral contrast has progressed to the rectum. No pericolonic inflammatory change. Mild diffuse anasarca type changes. Peritoneal fat stranding and slight nodularity is present diffusely with improvement in previous asci marie. However, there is a new loculated one shaped collection within the anterior abdomen extending fr om below the liver down to the bladder measuring up to 25.9 cm craniocaudal by 28.0 cm while by up to 11.6. Circumferential bladder wall thickening. No pelvic lymphadenopathy seen. Bones: Probable prior postsurgical change involving the proximal left femur. No osseous destructive process. IMPRESSION: 1. WHILE THERE HAS BEEN IMPROVEMENT IN THE PREVIOUS ASCITES, THERE IS RESIDUAL PERITONEAL NODULARITY WHICH COULD REPRESENT RESIDUAL PERITONEAL INFLAMMATION. CONSIDER CHRONIC PERITONITIS. 2. ALSO, THE PREVIOUS ASCITES FLUID HAS BEEN REPLACED BY A LARGE, Y-SHAPED LOCULATED FLUID COLLECTION WHICH SPANS FROM BELOW THE LIVER DOWN TO THE BLADDER MEASURING UP TO 28.0 CM WIDE AND 11.6 CM THICK. CORRELATE FOR ANY SIGNS/SYMPTOMS OF INFECTION. 3. CIRRHOSIS AND PORTAL VENOUS HYPERTENSION WITH SPLENOMEGALY AT 15.6 CM. THERE IS A VAGUE AREA OF HY PERVASCULARITY MEASURING 4.2 CM IN THE MID LIVER DOME THAT COULD REPRESENT AN AREA OF VASCULAR SHUNTI NG. CONSIDER LIVER ULTRASOUND TO ASSESS FOR POTENTIAL UNDERLYING MASS. LIVER MRI MAY BE NEEDED WHEN T HE PATIENT IS ABLE. 4. MILD CIRCUMFERENTIAL BLADDER WALL THICKENING; CORRELATE TO EXCLUDE CYSTITIS.
== END ==
LOC: RADCTMAIN 12:03
PROVIDERS: ATTEND Internal Medicine Infectious Disease
DX: K74.60 Unspecified cirrhosis of liver (principal); R16.1 Splenomegaly, not elsewhere classified; K66.8 Other specified disorders of peritoneum; K76.6 Portal hypertension; N32.89 Other specified disorders of bladder; R18.8 Other ascites
CPT/HCPCS: 82565; 84520; 74177; 36415; Q9967 ×2

== ENCOUNTER 2019-03-03 14:11 | Inpatient (IN) | payer OTHER, MEDICARE ==
[2019-03-03] MEDS ORDERED: NALOXONE 0.4 MG/ML 1 ML VIAL IV PRN (15:52)
[2019-03-03] MEDS ORDERED: POLYETHYLENE GLYCOL 3350 17 GM POWD.PACK PO PRN (15:55)
[2019-03-03] MEDS ORDERED: MIRTAZAPINE 15 MG TAB PO PRN (15:55)
[2019-03-03] MEDS ORDERED: hydrOXYzine PAMOATE 25 MG CAP PO PRN (15:55)
[2019-03-03 16:20] LABS: Anisocytosis Slight; Basophils % (A) 0 %; Eosinophils # (A) 0.1 k/uL (0-0.7); Eosinophils % (A) 1 %; HCT 33.5 % (39.0-53.0); HGB 10.8 gm/dL (13.0-17.5); Lymphocytes # (A) 1.6 k/uL (1.0-4.8); Lymphocytes % (A) 12 %; MCH 26.6 pg (25.0-35.0); MCHC 32.2 g/dL (31.0-37.0); Mean Platelet Volume 6.9; Monocytes # (A) 0.6 k/uL (0-1.0); Monocytes % (A) 4 %; Neutrophils # (A) 11.6 k/uL (1.3-7.7); Neutrophils % (A) 83 %; Platelet Count 342 k/uL (150-450); RBC 4.07 m/uL (4.30-5.90); RDW 17.2 % (11.5-15.5)
[2019-03-03 16:24] LABS: MCV 82.4 fL (80.0-100.0)
[2019-03-03 16:26] LABS: INR 1.3 (<1.2)
[2019-03-03 16:33] LABS: ALT 44 U/L (21-72); AST 72 U/L (17-59); Albumin 2.6 g/dL (3.5-5.0); Alkaline Phosphatase 201 U/L (38-126); Amylase <30 U/L (30-110); Anion Gap 7 mmol/L; Blood Urea Nitrogen 18 mg/dL (9-20); Calcium 8.8 mg/dL (8.4-10.2); Carbon Dioxide 28 mmol/L (22-30); Chloride 98 mmol/L (98-107); Glucose 104 mg/dL (74-99); Lipase 21 U/L (23-300); Magnesium 1.8 mg/dL (1.6-2.3); Potassium 4.1 mmol/L (3.5-5.1); Sodium 133 mmol/L (137-145); Total Bilirubin 1.6 mg/dL (0.2-1.3); Total Protein 6.4 g/dL (6.3-8.2)
[2019-03-03 16:48] LABS: C Reactive Protein 176.2 mg/L (<10.0)
[2019-03-03 17:06] LABS: Erythrocyte Sedimentation Rate 71 mm/hr (0-15)
[2019-03-03] MEDS: PIPERACILLIN-TAZOBACTAM 3.375 GM in SODIUM CHLORIDE 0.9% 100 ML IVPB SCH (17:21)
[2019-03-03] MEDS: MIDODRINE 5 MG TAB PO SCH (17:21)
--- NOTE | 2019-03-03 17:49 | HP ---
HISTORY AND PHYSICAL CHIEF COMPLAINT: Abdominal pain. HISTORY OF PRESENT ILLNESS: This 63-year-old gentleman with a past medical history of CAD, history of GERD, hypertension, history of memory impairment, history of DJD, history of EtOH abuse, liver cirrhosis, hyponatremia, confusion, history of anxiety, depression, possible spontaneous bacterial peritonitis, being followed by Dr. Hugo Niño in the outpatient setting, apparently has had multiple abdominal paracenteses, the last paracentesis about 2 months ago. Currently the patient is complaining of diffuse abdominal pain. The patient had a CT scan of the abdomen and pelvis as an outpatient antibiotics and was evaluated by Dr. Luna. The CT scan of the abdomen and pelvis showed some improvement in the previous ascites but some residual peritoneal nodularity, which was indicative of peritoneal inflammation. Please note: peritoneal carcinomatosis was suspected during the previous admission and was treated conservatively. However, a large Y-shaped loculated pleural effusion spans from below the liver down to the bladder measuring [address] Luna recommended that the patient come to the hospital as a direct admission. He was admitted for further evaluation and treatment. Cirrhosis, portal hypertension, splenomegaly at 15 cm and multiple other abnormalities were noted on the CT scan. The patient complains of pain which is diffuse in the abdomen. Otherwise, there is no history of fever, rigor or chills. No history of headache, loss of consciousness, seizures. No chest pain, palpitations, hematochezia or melena at this time. PAST MEDICAL HISTORY: 1. Cirrhosis secondary to alcohol. 2. CHF. 3. GERD. 4. Hypertension. 5. Hyperlipidemia. 6. History of ETOH abuse. 7. History of memory problems. HOME MEDICATIONS: 1. Vistaril 25 mg p.o. t.i.d. 2. Aldactone 100 mg p.o. daily. 3. Pravachol 20 mg at bedtime. 4. MiraLAX 17 grams p.o. daily. 5. Protonix 40 mg p.o. b.i.d. 6. MS Contin 15 mg p.o. t.i.d. 7. Remeron 30 mg at bedtime. 8. ProAmatine 5 mg p.o. t.i.d. 9. Toprol-XL 12.5 mg p.o. daily. 10.Robaxin 500 mg p.o. b.i.d. 11.Lasix 40 mg p.o. b.i.d. 12.Iron 325 mg p.o. daily. 13.Colace 100 mg p.o. daily. 14.Colace 200 mg at bedtime. ALLERGIES: NONE. FAMILY HISTORY: History of lung cancer in the family. SOCIAL HISTORY: History of smoking. Previous history of alcohol intake, as mentioned earlier. The patient used to [place] for 14 years. Patient has a history of alcohol, THC and other drugs. REVIEW OF SYSTEMS: ENT: No diminished hearing. No diminished vision. CARDIOVASCULAR SYSTEM: No angina, palpitations. RESPIRATORY SYSTEM: As mentioned earlier. GI: As mentioned earlier. : No dysuria or retention. NERVOUS SYSTEM: No numbness, weakness. ALLERGY/IMMUNOLOGY: No asthma, hayfever. MUSCULOSKELETAL: As mentioned earlier. HEMATOLOGY/ONCOLOGY: No history of anemia. ENDOCRINE: No history of diabetes, hypothyroidism. CONSTITUTIONAL: As mentioned earlier. DERMATOLOGY: Negative. RHEUMATOLOGY: Negative. PSYCHIATRY: As mentioned earlier. PHYSICAL EXAMINATION: Patient is alert and oriented x3. Pulse is 87, blood pressure 94/64, respiration 16, temperature 98.1, pulse ox 99% on room air. HEENT: Conjunctivae pale. Oral mucosa moist. NECK: No jugular venous distention. No carotid bruit. No lymph node enlargement. CARDIOVASCULAR SYSTEM: S1, S2 muffled. Ejection systolic murmur present. RESPIRATORY SYSTEM: Breath sounds diminished at the bases. A few scattered rhonchi and crackles. ABDOMEN: Soft. Mild diffuse distention present. Mild diffuse tenderness. No guarding. No rigidity. No mass palpable. Splenomegaly present. Bowel sounds present. LEGS: Bilateral leg edema present. NERVOUS SYSTEM: Higher functions as mentioned earlier. Moves all 4 limbs. No focal motor or sensory deficit. LYMPHATICS: No lymph node palpable in neck, axillae or groin. SKIN: No ulcer, rash, bleeding. JOINTS: No active deforming arthropathy. LABS: Not available. ASSESSMENT: 1. Diffuse abdominal pain with possible loculated ascites. Rule out abscess. 2. Cirrhosis of the liver. 3. History of paracentesis. 4. History of possible spontaneous bacterial peritonitis. 5. History of coronary artery disease. 6. History of congestive heart failure. Ejection fraction unknown. 7. History of gastroesophageal reflux disease. 8. Hypertension. 9. History of chronic liver disease secondary to alcohol. 10.History of liver cirrhosis. 11.History of gallbladder disease. 12.History of pancreatitis. 13.History of anxiety, depression. 14.Continued ongoing nicotine dependence. RECOMMENDATIONS AND DISCUSSION: In this 63-year-old gentleman who presented with multiple complex medical issues, we will monitor the patient closely, continue the current medications, continue with symptomatic treatment. Will obtain the baseline labs and also will recommend interventional radiology for ascitic aspiration which is loculated with the possibility of suspicion of abscess. I would also recommend the fluid to be sent for cytology and also culture. Empiric antibiotics. Dr. Luna will be consulted. Prognosis guarded because of multiple complex medical issues. Further recommendations to follow. A copy of this dictation is being forwarded to Dr. Niño, who is the primary physician. Surgery will be consulted if surgical intervention is needed. Otherwise, resume the home medications. Medication reconciliation was done. Discussed with the patient. Discussed with the patient's brother at the bedside. MMODL / IJN: [id number] / CLARISSA
[2019-03-03] MEDS: LACTULOSE 20 GM/30 ML CUP PO SCH ×2 (20:44→20:48)
[2019-03-03] MEDS: PRAVASTATIN SODIUM 20 MG TAB PO SCH (22:49)
[2019-03-03] MEDS: DOCUSATE 100 MG CAP PO SCH (22:50)
[2019-03-03] MEDS: METHOCARBAMOL 500 MG TAB PO SCH (22:50)
[2019-03-03] MEDS: MORPHINE SULFATE ER 15 MG TABLET PO SCH (22:50)
[2019-03-04] MEDS: PIPERACILLIN-TAZOBACTAM 3.375 GM in SODIUM CHLORIDE 0.9% 100 ML IVPB SCH ×4 (00:44→22:49)
[2019-03-04 04:18] LABS: Appearance,Urine Clear (Clear); Bilirubin,Urine Negative (Negative); Color,Urine Yellow; Glucose,Urine (UA) Negative (Negative); Ketones,Urine Negative (Negative); PH, Urine 5.5 (5.0-8.0); Protein,Urine Negative (Negative); Specific Gravity,Urine 1.022 (1.001-1.035)
[2019-03-04 04:19] LABS: Blood,Urine Negative (Negative); Leukocyte Esterase,Urine Negative (Negative); Nitrite,Urine Negative (Negative); Urobilinogen,Urine <2.0 mg/dL (<2.0)
[2019-03-04] MEDS: FERROUS SULFATE 325 MG TAB PO SCH (08:23)
[2019-03-04] MEDS: METOPROLOL SUCCINATE (ER) 25 MG TAB.ER.24H PO SCH (08:23)
[2019-03-04] MEDS: FUROSEMIDE 40 MG TAB PO SCH ×2 (08:23→14:54)
[2019-03-04] MEDS: DOCUSATE 100 MG CAP PO SCH ×2 (08:23→22:37)
[2019-03-04] MEDS: MORPHINE SULFATE ER 15 MG TABLET PO SCH ×3 (08:24→22:36)
[2019-03-04] MEDS: SPIRONOLACTONE 25 MG TAB PO SCH (08:25)
[2019-03-04] MEDS: MIDODRINE 5 MG TAB PO SCH ×3 (08:25→16:32)
[2019-03-04] MEDS: LACTULOSE 20 GM/30 ML CUP PO SCH ×2 (08:25→21:06)
[2019-03-04 09:36] LABS: Anisocytosis Slight; Basophils # (A) 0.1 k/uL (0-0.2); Basophils % (A) 1 %; Eosinophils # (A) 0.1 k/uL (0-0.7); Eosinophils % (A) 0 %; HCT 35.6 % (39.0-53.0); HGB 11.1 gm/dL (13.0-17.5); Lymphocytes # (A) 1.6 k/uL (1.0-4.8); Lymphocytes % (A) 8 %; MCH 25.8 pg (25.0-35.0); MCHC 31.1 g/dL (31.0-37.0); MCV 82.9 fL (80.0-100.0); Mean Platelet Volume 6.4; Monocytes # (A) 0.8 k/uL (0-1.0); Monocytes % (A) 4 %; Neutrophils # (A) 17.7 k/uL (1.3-7.7); Neutrophils % (A) 87 %; Platelet Count 472 k/uL (150-450); RBC 4.29 m/uL (4.30-5.90); RDW 17.3 % (11.5-15.5); WBC 20.5 k/uL (3.8-10.6)
[2019-03-04 09:57] LABS: Anion Gap 9 mmol/L; Blood Urea Nitrogen 18 mg/dL (9-20); Calcium 8.7 mg/dL (8.4-10.2); Carbon Dioxide 24 mmol/L (22-30); Chloride 97 mmol/L (98-107); Glucose 73 mg/dL (74-99); Potassium 4.6 mmol/L (3.5-5.1); Sodium 130 mmol/L (137-145)
--- NOTE | 2019-03-04 12:32 | US ---
EXAMINATION TYPE: US visceral fluid drainage DATE OF EXAM: 03/04/2019 HISTORY: Abscess, indeterminate fluid collection FINDINGS: Maximal barrier technique was utilized. The skin overlying a suitable path to the fluid wa s localized in the mid abdomen with ultrasound and the overlying skin prepped and draped. Lidocaine was used for local anesthesia. A skin rama made with a scalpel. Access was gained under direct ultr asound guidance to the fluid with a 21-gauge needle. Ultrasound was utilized using sterile technique. A 0.018 inch wire was advanced. Access site was dilated and an 8.5-[place] catheter advanced into t he fluid collection. Cloudy brown fluid returned. 30 cc aspirated and sent for laboratory analysis. C atheter fixed to the skin. Hemostasis achieved. No immediate complication and the patient remained in stable condition. IMPRESSION: STATUS POST ULTRASOUND GUIDED ABDOMINAL ABSCESS DRAINAGE, THIS PROCEDURE WAS PERFORMED BY THE UNDERSIGNED. Microbiology analysis is pending.
[2019-03-04] MEDS: METHOCARBAMOL 500 MG TAB PO SCH ×2 (15:00→22:37)
[2019-03-04 15:23] LABS: Appearance,BF Cloudy; Color,BF Brown; Nucleated Cells, Body Fluid 71500 /uL; RBC, Body Fluid 3500 /uL
[2019-03-04 15:26] LABS: Mononuclear WBC,Body Fluid 19 %; Polynuclear WBC,Body Fluid 81 %; Total Cells Counted,Body Fluid 100
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
[2019-03-04] MEDS: PRAVASTATIN SODIUM 20 MG TAB PO SCH (22:37)
[2019-03-05] MEDS: DOCUSATE 100 MG CAP PO SCH ×2 (06:14→22:39)
[2019-03-05] MEDS: MORPHINE SULFATE ER 15 MG TABLET PO SCH ×3 (06:14→22:39)
[2019-03-05] MEDS: FERROUS SULFATE 325 MG TAB PO SCH (06:14)
[2019-03-05] MEDS: FUROSEMIDE 40 MG TAB PO SCH ×2 (06:14→14:33)
[2019-03-05] MEDS: MIDODRINE 5 MG TAB PO SCH ×3 (06:18→17:12)
[2019-03-05] MEDS: METOPROLOL SUCCINATE (ER) 25 MG TAB.ER.24H PO SCH (07:44)
[2019-03-05] MEDS: SPIRONOLACTONE 25 MG TAB PO SCH (07:44)
[2019-03-05] MEDS: LACTULOSE 20 GM/30 ML CUP PO SCH ×2 (07:45→20:59)
[2019-03-05] MEDS: PIPERACILLIN-TAZOBACTAM 3.375 GM in SODIUM CHLORIDE 0.9% 100 ML IVPB SCH ×3 (07:46→23:52)
[2019-03-05] MEDS: METHOCARBAMOL 500 MG TAB PO SCH ×2 (14:32→22:40)
--- NOTE | 2019-03-05 16:32 | PN ---
PROGRESS NOTE DATE OF SERVICE: 03/04/2019 This 63-year-old gentleman admitted with abdominal pain is suspected to have an abdominal abscess at this time. The patient has got as well as drainage. The patient had brownish drainage from the drain. Ultrasound-guided aspiration was done; about 30 mL was aspirated and sent for culture and other labs. Patient is being closely monitored at this time. There is no history of any fever, rigor or chills. Past medical history reviewed. REVIEW OF SYSTEMS: CARDIOVASCULAR SYSTEM: No angina, palpitations. RESPIRATORY SYSTEM: As mentioned earlier. GI: As mentioned earlier. : No dysuria or retention. NERVOUS SYSTEM: No numbness, weakness. CURRENT MEDICATIONS: Reviewed. They include: 1. Colace 100 mg p.o. b.i.d. 2. Iron sulfate 325 mg daily. 3. Lasix 40 mg p.o. b.i.d. 4. Vistaril. 5. Cephulac 20 grams p.o. b.i.d. 6. Robaxin 500 mg daily. 7. ProAmatine. 8. Remeron. 9. MS Contin. 10.Zosyn 3.375 IV q.6. 11.Pravachol. 12.Aldactone. PHYSICAL EXAMINATION: Patient is alert, oriented x3. Pulse 88, blood pressure 98/64, respirations 16, temperature 97.6, pulse ox 99% on room air. HEENT: Conjunctivae normal. Oral mucosa moist. NECK: No jugular venous distention. No carotid bruit. No lymph node enlargement. CARDIOVASCULAR SYSTEM: S1, S2 muffled. RESPIRATORY SYSTEM: Breath sounds diminished at the bases. A few scattered rhonchi and crackles. ABDOMEN: Soft. Diffuse distention present. Diffuse tenderness also present. RENEE drain in place. No guarding. No rigidity. Bowel sounds present. LEGS: Minimal edema. NERVOUS SYSTEM: Higher functions as mentioned earlier. Moves all 4 limbs. No focal motor or sensory deficit. LYMPHATICS: No lymph node palpable in neck, axillae or groin. SKIN: No ulcer, rash, bleeding. JOINTS: No active deforming arthropathy. LABS: WBC 20.5, hemoglobin 11.1. Sodium is 130. Other labs are noted. ASSESSMENT: 1. Diffuse abdominal pain with loculated ascites and intraabdominal abscess, status post drainage. 2. Cirrhosis of the liver. 3. History of paracentesis. 4. History of possible spontaneous bacterial peritonitis. 5. History of coronary artery disease. 6. History of congestive heart failure; ejection fraction unknown. 7. History of gastroesophageal reflux disease. 8. Hypertension. 9. History of chronic liver disease secondary to alcohol. 10.History of liver cirrhosis. 11.History of gallbladder disease. 12.History of pancreatitis. 13.History of anxiety, depression. 14.Continued ongoing nicotine dependence. RECOMMENDATIONS AND DISCUSSION: I recommend to continue current medications, continue with the monitoring, symptomatic treatment. Continue with broad-spectrum IV antibiotics. The fluid analysis noted. The fluid has 71,500 neutrophils. Will obtain the cultures. Closely follow with ID. Pain management. Guarded prognosis. Further recommendations to follow. MMODL / IJN: [id number] / CLARISSA
--- NOTE | 2019-03-05 17:02 | PN ---
PROGRESS NOTE DATE OF SERVICE: 03/05/2019 This 63-year-old gentleman with a past medical history of liver cirrhosis and multiple medical problems was admitted for intraabdominal abscess and focal ascites. The patient had drainage yesterday. The patient is on broad-spectrum IV antibiotics. Significant neutrophils were noted in the fluid. Currently the drainage is around 690 mL. Cloudy fluid is being aspirated. Past medical history reviewed. REVIEW OF SYSTEMS: CARDIOVASCULAR SYSTEM: No angina, palpitations. RESPIRATORY SYSTEM: As mentioned earlier. GI: As mentioned earlier. : No dysuria or retention. NERVOUS SYSTEM: No numbness, weakness. CURRENT MEDICATIONS: Reviewed. They include: 1. Toprol-XL 12.5 mg p.o. daily. 2. ProAmatine 5 mg before meals t.i.d. 3. Remeron 30 mg at bedtime. 4. MS Contin 15 mg p.o. t.i.d. 5. Narcan 0.2 q.2 p.r.n. 6. Zosyn 3.375 IV q.8. 7. MiraLAX 17 grams daily. 8. Pravachol 20 mg at bedtime. 9. Aldactone 100 mg p.o. daily. 10.Colace 200 mg at bedtime. 11.Colace 100 mg daily. 12.Iron sulfate 325 mg. 13.Lasix 40 mg p.o. daily. 14.Vistaril 25 mg p.o. t.i.d. 15.Cephulac 20 grams p.o. b.i.d. 16.Robaxin 500 mg p.o. b.i.d. 17.Toprol-XL 0.5 mg p.o. daily. 18.ProAmatine 5 mg before meals t.i.d. 19.Remeron 30 mg p.o. at bedtime. 20.MS Contin 15 mg p.o. t.i.d. PHYSICAL EXAMINATION: Patient is alert, oriented x3. Pulse 80, blood pressure 89/63, respiration 20, temperature 97.7, pulse ox 95% on room air. HEENT: Conjunctivae normal. Oral mucosa moist. NECK: No jugular venous distention. No carotid bruit. No lymph node enlargement. CARDIOVASCULAR SYSTEM: S1, S2 muffled. RESPIRATORY SYSTEM: Breath sounds diminished at the bases. A few scattered rhonchi and crackles. ABDOMEN: Soft, obese. Mild diffuse distention present. No definite mass palpable. RENEE drain in situ. Bowel sounds present. Ascites present. LEGS: Minimal edema. NERVOUS SYSTEM: Higher functions as mentioned earlier. Moves all 4 limbs. No focal motor or sensory deficit. LYMPHATICS: No lymph node palpable in neck, axillae or groin. JOINTS: No active deforming arthropathy. LABS: WBC 20.5, hemoglobin 11.1, sodium 130, potassium 4.6. Cultures are pending at this time. Culture of the body fluid is gram-negative bacilli. ASSESSMENT: 1. Diffuse abdominal pain, possibly loculated intraabdominal abscess, status post drainage with possible systemic inflammatory response syndrome. 2. Cirrhosis of the liver. 3. Gram-negative bacilli from the cultures. 4. History of paracentesis. 5. History of possible spontaneous bacterial peritonitis. 6. History of coronary artery disease. 7. History of congestive heart failure, ejection fraction unknown. 8. History of gastroesophageal reflux disease. 9. Hypertension. 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 11.History of liver cirrhosis. 12.History of gallbladder disease. 13.History of pancreatitis. 14.History of anxiety, depression. 15.Continued ongoing nicotine dependence. 16.NO CODE, NO CPR. RECOMMENDATIONS AND DISCUSSION: I recommend to continue current medications, continue with the monitoring, symptomatic treatment. Will await final culture report. The patient is currently on IV Zosyn. Closely follow with Infectious Disease. We will monitor the patient along with Interventional Radiology. Prognosis guarded because of the multiple complex medical issues. Further recommendations to follow. MMODL / IJN: [id number] /
[2019-03-05] MEDS: PRAVASTATIN SODIUM 20 MG TAB PO SCH (22:39)
--- NOTE | 2019-03-05 23:41 | PN ---
PROGRESS NOTE DATE OF SERVICE: 03/05/2019. REASON FOR FOLLOW UP: Abdominal abscess. INTERVAL HISTORY: The patient is currently afebrile. Patient has been breathing comfortably. Abdominal pain is currently controlled. No chest pain. No shortness of breath. No cough. No diarrhea. PHYSICAL EXAMINATION: Blood pressure 89/63 with a pulse of 80, temperature 97.7. He is 95% on room air. General description is an elderly male lying in bed in no distress. RESPIRATORY system: Unlabored breathing. Clear to auscultation anteriorly. HEART S1, S2. Regular rate and rhythm. ABDOMEN: Soft, minimal tenderness. LABS: Abdominal culture currently with gram-negative bacilli. DIAGNOSTIC IMPRESSION AND PLAN: Patient with abdominal abscess status post CT-guided drainage. Culture with a gram- negative. Patient is currently covered with Zosyn to continue while waiting for the culture to finalize. Continue supportive care. MMODL / IJN: [id number] /
[2019-03-06] MEDS: MORPHINE SULFATE ER 15 MG TABLET PO SCH ×3 (06:38→23:36)
[2019-03-06] MEDS: MIDODRINE 5 MG TAB PO SCH ×3 (06:38→16:38)
[2019-03-06] MEDS: DOCUSATE 100 MG CAP PO SCH ×2 (06:38→23:36)
[2019-03-06] MEDS: FUROSEMIDE 40 MG TAB PO SCH ×2 (06:38→15:38)
[2019-03-06] MEDS: FERROUS SULFATE 325 MG TAB PO SCH (06:38)
[2019-03-06] MEDS: METOPROLOL SUCCINATE (ER) 25 MG TAB.ER.24H PO SCH (07:20)
[2019-03-06] MEDS: SPIRONOLACTONE 25 MG TAB PO SCH (07:21)
[2019-03-06] MEDS: PIPERACILLIN-TAZOBACTAM 3.375 GM in SODIUM CHLORIDE 0.9% 100 ML IVPB SCH ×3 (07:22→23:37)
[2019-03-06] MEDS: LACTULOSE 20 GM/30 ML CUP PO SCH ×2 (07:22→20:48)
--- NOTE | 2019-03-06 14:04 | PN ---
PROGRESS NOTE DATE OF SERVICE: 03/06/2019 REASON FOR FOLLOWUP: Abdominal abscess. INTERVAL HISTORY: The patient is currently afebrile, has been breathing comfortably. Denies having any chest pain or any cough. Abdominal pain is currently controlled unless it is touched. No nausea, vomiting or any diarrhea. PHYSICAL EXAMINATION: Blood pressure 97/53 with a pulse of 96, temperature 97.8. He is 98% on room air. General description is elderly male, up in the bed in no distress. RESPIRATORY SYSTEM: Unlabored breathing, clear to auscultation anteriorly. HEART: S1, S2. Regular rate and rhythm. ABDOMEN: Soft. The drainage catheter did have purulent drainage. LABS: No new labs been obtained today. The abdominal cultures have been finalized with E coli that is sensitive to Zosyn in addition to the Rocephin. DIAGNOSTIC IMPRESSION AND PLAN: Patient with abdominal abscess, status post CT-guided drainage. In view of extensive infection, the patient need a PICC line for outpatient IV antibiotic therapy. Currently on Zosyn. Hopefully, will transition that to Rocephin and Flagyl combination. PICC line tomorrow. Continue supportive care. MMODL / IJN: [id number] /
[2019-03-06] MEDS: METHOCARBAMOL 500 MG TAB PO SCH (15:38)
--- NOTE | 2019-03-06 23:10 | P.PN ---
Subjective Progress Note Date: 03/06/19 Principal diagnosis: Intra-abdominal abscess status post IR guided drainage Patient is a 63-year-old male with a known history of hypertension, hyperlipidemia, history of liver cirrhosis and other multiple medical problems was admitted to the hospital with abdominal pain. Patient was found have intra- abdominal abscess and focal ascites. Patient had IR guided aspiration of 690 mL fluid done on 03/04/2019. Fluid cultures growing E. coli. Patient is currently on IV antibiotics in the form of Zosyn. ID is following. Patient may need PICC line for long-term antibiotics, likely ceftriaxone and Flagyl. Currently abdominal pain is better. No fever. No chest pain or shortness of breath. WBC count is elevated at 22 on 03/04/2090. Repeat CBC will be done tomorrow. ID is following. Current medications reviewed. Active Medications Generic Name Dose Route Start Last Admin Trade Name Freq PRN Reason Stop Dose Admin Docusate Sodium 100 mg 03/04/19 07:00 03/06/19 06:38 Colace PO 100 mg DAILY@0700 SESAR Administration Docusate Sodium 200 mg 03/03/19 23:00 03/05/19 22:39 Colace PO 200 mg HS@2300 SESAR Administration Ferrous Sulfate 325 mg 03/04/19 07:00 03/06/19 06:38 Feosol PO 325 mg DAILY@0700 SESAR Administration Furosemide 40 mg 03/04/19 07:00 03/06/19 15:38 Lasix PO 40 mg BID@0700,1500 SESAR Administration Hydroxyzine Pamoate 25 mg 03/03/19 15:55 Vistaril PO TID@0700,1500,2300 PRN Itching Piperacillin Sod/Tazobactam 100 mls @ 25 mls/hr 03/03/19 16:45 03/06/19 15:59 Sod 3.375 gm/ Sodium Chloride IVPB 25 mls/hr Q8HR SESAR Administration Lactulose 20 gm 03/03/19 21:00 03/06/19 20:48 Cephulac PO Not Given BID SESAR Methocarbamol 500 mg 03/03/19 23:00 03/06/19 15:38 Robaxin PO 500 mg BID@1500,2300 SESAR Administration Metoprolol Succinate 12.5 mg 03/04/19 07:00 03/06/19 07:20 Toprol Xl PO 12.5 mg DAILY@0700 [facility] Administration Midodrine 5 mg 03/03/19 17:30 03/06/19 16:38 Proamatine PO 5 mg AC-TID SESAR Administration Mirtazapine 30 mg 03/03/19 15:55 Remeron PO HS@2300 PRN Insomnia Morphine Sulfate 15 mg 03/03/19 23:00 03/06/19 15:37 Ms Contin PO 15 mg TID@0700,1500,2300 [facility] Administration Naloxone HCl 0.2 mg 03/03/19 15:52 Narcan IV Q2M PRN Opioid Reversal Polyethylene Glycol 17 gm 03/03/19 15:55 Miralax PO DAILY PRN Constipation Pravastatin Sodium 20 mg 03/03/19 23:00 03/05/19 22:39 Pravachol PO 20 mg HS@2300 [facility] Administration Spironolactone 100 mg 03/04/19 07:00 03/06/19 07:21 Aldactone PO 100 mg DAILY@0700 [facility] Administration Objective - Vital Signs Vital signs: Vital Signs Temp 97.8 F 03/06/19 05:30 Pulse 96 03/06/19 05:30 Resp 18 03/06/19 14:00 BP 97/63 03/06/19 05:30 Pulse Ox 98 03/06/19 05:30 Intake & Output 03/05/19 03/06/19 03/06/19 18:59 06:59 18:59 Output Total 1085 1000 250 Balance -1085 -1000 -250 Weight 82 kg 78.7 kg Output: Drainage 160 100 50 Right Abdomen 160 100 50 Urine 925 900 200 Other: Voiding Method Urinal Urinal Urinal # Voids 1 # Bowel Movements 0 - Exam PHYSICAL EXAMINATION: Patient is lying in the bed comfortably, no acute distress, awake alert and oriented.. HEENT: Normocephalic. Neck is supple. Pupils reactive. Nostrils clear. Oral cavity is moist. Ears reveal no drainage. Neck reveals no JVD, carotid bruits, or thyromegaly. CHEST EXAMINATION: Trachea is central. Symmetrical expansion. Lung paez clear to auscultation and percussion. CARDIAC: Normal S1, S2 with no gallops. No murmurs ABDOMEN: Soft. Distended with minimal ascites. Pigtail catheter is in place. Bowel sounds normal. No abdominal bruits. Extremities: reveal no edema. No clubbing or cyanosis Neurologically awake, alert, oriented x3 with well-coordinated movements. No focal deficits noted Skin: No rash or skin lesions. Psychiatric: Coperative. Nonsuicidal Musculoskeletal: No joint swelling or deformity. Normal range of motion. - Labs CBC & Chem 7: 03/04/19 09:06 03/04/19 09:06 Labs: Microbiology - Last 24 Hours (Table) 03/04/19 09:48 Anaerobic Culture - Preliminary Peritoneal Fluid 03/04/19 09:30 Gram Stain - Final Peritoneal Fluid Body Fluid Culture - Final Escherichia coli Assessment and Plan Assessment: Diffuse abdominal pain secondary to loculated intra-abdominal abscess status post IR guided drainage neck and possible sepsis. E. coli fluid cultures positive. Liver cirrhosis secondary to alcohol abuse E. coli and the cultures History of paracentesis History of SBP History of coronary artery Chronic CHF with a fraction unknown GERD Hypertension Anxiety/depression Ongoing nicotine addiction CODE STATUS is DO NOT RESUSCITATE/DO NOT INTUBATE Plan: Patient will be continued on antibiotics in the form of Zosyn. ID is following. Continue the current management. Fluid culture showed E. coli. Possible PICC line placement per ID.. Further recommendations based on the clinical course. Prognosis is guarded. Time with Patient: Greater than 30
[2019-03-06] MEDS: PRAVASTATIN SODIUM 20 MG TAB PO SCH (23:37)
[2019-03-07] MEDS: METHOCARBAMOL 500 MG TAB PO SCH ×3 (00:09→21:50)
[2019-03-07] MEDS: METOPROLOL SUCCINATE (ER) 25 MG TAB.ER.24H PO SCH (08:19)
[2019-03-07] MEDS: MORPHINE SULFATE ER 15 MG TABLET PO SCH ×3 (08:19→21:39)
[2019-03-07] MEDS: MIDODRINE 5 MG TAB PO SCH ×3 (08:19→17:44)
[2019-03-07] MEDS: SPIRONOLACTONE 25 MG TAB PO SCH (08:19)
[2019-03-07] MEDS: FERROUS SULFATE 325 MG TAB PO SCH (08:19)
[2019-03-07] MEDS: PIPERACILLIN-TAZOBACTAM 3.375 GM in SODIUM CHLORIDE 0.9% 100 ML IVPB SCH ×3 (08:20→23:13)
[2019-03-07] MEDS: DOCUSATE 100 MG CAP PO SCH ×2 (08:20→21:39)
[2019-03-07] MEDS: LACTULOSE 20 GM/30 ML CUP PO SCH ×2 (08:20→21:38)
[2019-03-07] MEDS: FUROSEMIDE 40 MG TAB PO SCH ×2 (08:20→15:15)
[2019-03-07 09:48] LABS: Anisocytosis Slight; Basophils # (A) 0.1 k/uL (0-0.2); Basophils % (A) 1 %; Eosinophils # (A) 0.1 k/uL (0-0.7); Eosinophils % (A) 1 %; HCT 35.9 % (39.0-53.0); Lymphocytes # (A) 1.6 k/uL (1.0-4.8); Lymphocytes % (A) 11 %; MCH 25.3 pg (25.0-35.0); MCHC 30.6 g/dL (31.0-37.0); MCV 82.7 fL (80.0-100.0); Mean Platelet Volume 6.7; Monocytes # (A) 0.6 k/uL (0-1.0); Monocytes % (A) 4 %; Neutrophils # (A) 11.9 k/uL (1.3-7.7); Neutrophils % (A) 83 %; Platelet Count 459 k/uL (150-450); RBC 4.34 m/uL (4.30-5.90); RDW 17.7 % (11.5-15.5); WBC 14.5 k/uL (3.8-10.6)
[2019-03-07 10:03] LABS: Anion Gap 5 mmol/L; Blood Urea Nitrogen 20 mg/dL (9-20); Calcium 8.7 mg/dL (8.4-10.2); Carbon Dioxide 32 mmol/L (22-30); Chloride 96 mmol/L (98-107); Glucose 128 mg/dL (74-99); Potassium 3.7 mmol/L (3.5-5.1); Sodium 133 mmol/L (137-145)
--- NOTE | 2019-03-07 15:44 | P.PN ---
Subjective Progress Note Date: 03/07/19 Principal diagnosis: Intra-abdominal abscess Status post IR guided drainage 63-year-old male with a known history of hypertension, hyperlipidemia, history of liver cirrhosis and other multiple medical problems was admitted to the hospital with abdominal pain. Patient was found have intra-abdominal abscess and focal ascites. Patient had IR guided aspiration of 690 mL fluid done on 03/04/2019. Fluid cultures growing E. coli. Patient is currently on IV antibiotics in the form of Zosyn. ID is following. Patient may need PICC line for long-term antibiotics, likely ceftriaxone and Flagyl. Currently abdominal pain is better. No fever. No chest pain or shortness of breath. WBC count is elevated at 22 on 03/04/2090. Repeat CBC will be done tomorrow. ID is following. Objective - Vital Signs Vital signs: Vital Signs Temp 98.0 F 03/07/19 06:56 Pulse 83 03/07/19 06:56 Resp 16 03/07/19 06:56 BP 102/65 03/07/19 06:56 Pulse Ox 96 03/07/19 06:56 Intake & Output 03/06/19 03/07/19 03/07/19 18:59 06:59 18:59 Intake Total 850 Output Total 250 470 720 Balance 600 -470 -720 Weight 78.8 kg Intake: Oral 850 Output: Drainage 50 70 400 Right Abdomen 50 70 400 Urine 200 400 320 Other: Voiding Method Urinal Urinal # Voids 2 3 2 - Exam - Constitutional General appearance: Present: average body habitus, cooperative, no acute distress - EENT Eyes: Present: anicteric sclerae, EOMI, PERRLA, normal appearance ENT: Present: hearing grossly normal, normal oropharynx Ears: bilateral: normal - Neck Neck: Present: normal ROM. Absent: lymphadenopathy, rigidity, thyromegaly Carotids: negative: bruit present Thyroid: bilateral: normal size, negative: enlarged, nodule - Respiratory Respiratory: bilateral: CTA, negative: rales, rhonchi, wheezing - Cardiovascular Rhythm: regular Heart sounds: normal: S1, S2 Abnormal Heart Sounds: Absent: systolic murmur, diastolic murmur - Gastrointestinal General gastrointestinal: Present: normal bowel sounds, soft. Absent: distended, organomegaly, tenderness - Genitourinary Genitourinary Comment(s): deferred - Integumentary Integumentary: Present: normal turgor. Absent: jaundiced, rash, ulcer - Neurologic Neurologic: Present: CNII-XII intact. Absent: focal deficits - Musculoskeletal Musculoskeletal: Present: gait normal, strength equal bilaterally - Psychiatric Psychiatric: Present: A&O x's 3, appropriate affect, intact judgment & insight - Labs CBC & Chem 7: 03/07/19 09:05 03/07/19 09:05 Labs: Abnormal Lab Results - Last 24 Hours (Table) 03/07/19 03/07/19 Range/Units 09:05 09:05 WBC 14.5 H (3.8-10.6) k/uL Hgb 11.0 L (13.0-17.5) gm/dL Hct 35.9 L (39.0-53.0) % MCHC 30.6 L (31.0-37.0) g/dL RDW 17.7 H (11.5-15.5) % Plt Count 459 H (150-450) k/uL Neutrophils # 11.9 H (1.3-7.7) k/uL Sodium 133 L (137-145) mmol/L Chloride 96 L (98-107) mmol/L Carbon Dioxide 32 H (22-30) mmol/L Glucose 128 H (74-99) mg/dL Microbiology - Last 24 Hours (Table) 03/04/19 09:48 Anaerobic Culture - Preliminary Peritoneal Fluid 03/04/19 09:30 Gram Stain - Final Peritoneal Fluid Body Fluid Culture - Final Escherichia coli Assessment and Plan Assessment: Diffuse abdominal pain secondary to loculated intra-abdominal abscess status post IR guided drainage neck and possible sepsis. E. coli fluid cultures positive. Liver cirrhosis secondary to alcohol abuse E. coli and the cultures History of paracentesis History of SBP History of coronary artery Chronic CHF with a fraction unknown GERD Hypertension Anxiety/depression Ongoing nicotine addiction CODE STATUS is DO NOT RESUSCITATE/DO NOT INTUBATE Patient remains on IV antibiotics in form of IV Zosyn; fluid culture did show E. coli sensitive to Zosyn; IDs following and recommending PICC line placement for prolonged IV antibiotic course which will be transitioned to Rocephin and Flagyl at the time of discharge Time with Patient: Greater than 30
--- NOTE | 2019-03-07 16:24 | PN ---
PROGRESS NOTE DATE OF SERVICE: 03/07/2019 REASON FOR FOLLOWUP: Abdominal abscess. INTERVAL HISTORY: The patient is currently afebrile. The patient has been breathing comfortably. Denies any worsening abdominal pain. He was noted to have some drainage around his drainage catheter. No chest pain, shortness of breath or cough. PHYSICAL EXAMINATION: Blood pressure 102/65 with a pulse of 83, temperature 98. He is 96% on room air. General description is an elderly male lying in bed in no distress. RESPIRATORY SYSTEM: Unlabored breathing. Clear to auscultation anteriorly. HEART: S1, S2. Regular rate and rhythm. ABDOMEN: Soft. Slightly distended. Did have drainage around the drainage catheter with purulent drainage in the bag. LABS: Hemoglobin is 11, white count 14.5, BUN of 20, creatinine 0.82. DIAGNOSTIC IMPRESSION AND PLAN: Patient with abdominal abscess, status post CT-guided drainage; now seems to have a problem with drainage around the catheter. The patient is currently covered with Zosyn. He will need a midline for outpatient IV antibiotic in the form of Rocephin and Flagyl , once this drainage around the catheter problem is resolved. Continue with supportive care. MMODL / IJN: [id number] / CLARISSA
[2019-03-07] MEDS: PANTOPRAZOLE 40 MG TABLET PO SCH (17:44)
[2019-03-07] MEDS: PRAVASTATIN SODIUM 20 MG TAB PO SCH (21:39)
[2019-03-08] MEDS ORDERED: PANTOPRAZOLE 40 MG TABLET PO SCH (07:00)
[2019-03-08] MEDS: METOPROLOL SUCCINATE (ER) 25 MG TAB.ER.24H PO SCH (07:10)
[2019-03-08] MEDS: PANTOPRAZOLE 40 MG TABLET PO SCH ×2 (07:10→15:16)
[2019-03-08] MEDS: DOCUSATE 100 MG CAP PO SCH ×2 (07:10→23:36)
[2019-03-08] MEDS: FUROSEMIDE 40 MG TAB PO SCH ×2 (07:10→15:16)
[2019-03-08] MEDS: SPIRONOLACTONE 25 MG TAB PO SCH (07:10)
[2019-03-08] MEDS: MIDODRINE 5 MG TAB PO SCH ×3 (07:10→16:43)
[2019-03-08] MEDS: LACTULOSE 20 GM/30 ML CUP PO SCH ×2 (07:10→20:06)
[2019-03-08] MEDS: FERROUS SULFATE 325 MG TAB PO SCH (07:10)
[2019-03-08] MEDS: MORPHINE SULFATE ER 15 MG TABLET PO SCH ×3 (07:11→23:38)
[2019-03-08] MEDS: PIPERACILLIN-TAZOBACTAM 3.375 GM in SODIUM CHLORIDE 0.9% 100 ML IVPB SCH ×3 (07:12→23:36)
[2019-03-08 09:16] LABS: Anion Gap 6 mmol/L; Blood Urea Nitrogen 20 mg/dL (9-20); Calcium 8.9 mg/dL (8.4-10.2); Carbon Dioxide 32 mmol/L (22-30); Chloride 96 mmol/L (98-107); Glucose 117 mg/dL (74-99); Potassium 4.1 mmol/L (3.5-5.1); Sodium 134 mmol/L (137-145)
[2019-03-08 09:33] LABS: Anisocytosis Slight; Basophils # (A) 0.1 k/uL (0-0.2); Basophils % (A) 1 %; Eosinophils # (A) 0.2 k/uL (0-0.7); Eosinophils % (A) 2 %; HCT 37.6 % (39.0-53.0); HGB 11.6 gm/dL (13.0-17.5); Hypochromasia Slight; Lymphocytes # (A) 2.6 k/uL (1.0-4.8); Lymphocytes % (A) 21 %; MCH 25.9 pg (25.0-35.0); MCHC 30.8 g/dL (31.0-37.0); Mean Platelet Volume 6.7; Monocytes # (A) 0.5 k/uL (0-1.0); Monocytes % (A) 4 %; Neutrophils # (A) 8.7 k/uL (1.3-7.7); Neutrophils % (A) 71 %; Platelet Count 484 k/uL (150-450); RBC 4.47 m/uL (4.30-5.90); RDW 17.9 % (11.5-15.5); WBC 12.2 k/uL (3.8-10.6)
--- NOTE | 2019-03-08 14:54 | P.PN ---
Subjective Progress Note Date: 03/08/19 Principal diagnosis: Intra-abdominal abscess Status post IR guided drainage 63-year-old male with a known history of hypertension, hyperlipidemia, history of liver cirrhosis and other multiple medical problems was admitted to the hospital with abdominal pain. Patient was found have intra-abdominal abscess and focal ascites. Patient had IR guided aspiration of 690 mL fluid done on 03/04/2019. Fluid cultures growing E. coli. Patient is currently on IV antibiotics in the form of Zosyn. ID is following. Patient may need PICC line for long-term antibiotics, likely ceftriaxone and Flagyl. Currently abdominal pain is better. No fever. No chest pain or shortness of breath. WBC count is elevated at 22 on 03/04/2090. Repeat CBC will be done tomorrow. ID is following. 03/08/2019 Patient is seen and evaluated in room at bedside; continues to have drainage at catheter site; INR to evaluate patient for further recommendations; patient has a central venous access and is to be discharged home on IV antibiotics of IDs recommendations once stable Objective - Vital Signs Vital signs: Vital Signs Temp 98.1 F 03/08/19 07:44 Pulse 96 03/08/19 07:44 Resp 16 03/08/19 07:44 BP 101/65 03/08/19 07:44 Pulse Ox 96 03/08/19 07:44 Intake & Output 03/07/19 03/08/19 03/08/19 18:59 06:59 18:59 Intake Total 100 Output Total 720 525 Balance -620 -525 Weight 78.4 kg Intake: Intake, IV Titration 100 Amount Piperacillin-Tazobactam 3 100 .375 gm In Sodium Chloride 0.9% 100 ml @ 25 mls/hr IVPB Q8HR [facility] Rx# :[id number] Output: Drainage 400 325 Right Abdomen 400 325 Urine 320 200 Other: Voiding Method Urinal Urinal # Voids 2 1 # Bowel Movements 0 - Exam - Constitutional General appearance: Present: average body habitus, cooperative, no acute distress - EENT Eyes: Present: anicteric sclerae, EOMI, PERRLA, normal appearance ENT: Present: hearing grossly normal, normal oropharynx Ears: bilateral: normal - Neck Neck: Present: normal ROM. Absent: lymphadenopathy, rigidity, thyromegaly Carotids: negative: bruit present Thyroid: bilateral: normal size, negative: enlarged, nodule - Respiratory Respiratory: bilateral: CTA, negative: rales, rhonchi, wheezing - Cardiovascular Rhythm: regular Heart sounds: normal: S1, S2 Abnormal Heart Sounds: Absent: systolic murmur, diastolic murmur - Gastrointestinal General gastrointestinal: Present: normal bowel sounds, soft. Absent: distended, organomegaly, tenderness - Genitourinary Genitourinary Comment(s): deferred - Integumentary Integumentary: Present: normal turgor. Absent: jaundiced, rash, ulcer - Neurologic Neurologic: Present: CNII-XII intact. Absent: focal deficits - Musculoskeletal Musculoskeletal: Present: gait normal, strength equal bilaterally - Psychiatric Psychiatric: Present: A&O x's 3, appropriate affect, intact judgment & insight - Labs CBC & Chem 7: 03/08/19 08:32 03/08/19 08:32 Labs: Abnormal Lab Results - Last 24 Hours (Table) 03/08/19 03/08/19 Range/Units 08:32 08:32 WBC 12.2 H (3.8-10.6) k/uL Hgb 11.6 L (13.0-17.5) gm/dL Hct 37.6 L (39.0-53.0) % MCHC 30.8 L (31.0-37.0) g/dL RDW 17.9 H (11.5-15.5) % Plt Count 484 H (150-450) k/uL Neutrophils # 8.7 H (1.3-7.7) k/uL Sodium 134 L (137-145) mmol/L Chloride 96 L (98-107) mmol/L Carbon Dioxide 32 H (22-30) mmol/L Glucose 117 H (74-99) mg/dL Microbiology - Last 24 Hours (Table) 03/04/19 09:48 Anaerobic Culture - Final Peritoneal Fluid Assessment and Plan Assessment: Diffuse abdominal pain secondary to loculated intra-abdominal abscess status post IR guided drainage neck and possible sepsis. E. coli fluid cultures positive. Liver cirrhosis secondary to alcohol abuse E. coli and the cultures History of paracentesis History of SBP History of coronary artery Chronic CHF with a fraction unknown GERD Hypertension Anxiety/depression Ongoing nicotine addiction CODE STATUS is DO NOT RESUSCITATE/DO NOT INTUBATE Patient remains on IV antibiotics in form of IV Zosyn; fluid culture did show E. coli sensitive to Zosyn; IDs following and recommending PICC line placement for prolonged IV antibiotic course which will be transitioned to Rocephin and Flagyl at the time of discharge Time with Patient: Greater than 30
[2019-03-08] MEDS: METHOCARBAMOL 500 MG TAB PO SCH ×2 (15:16→23:36)
[2019-03-08] MEDS: PRAVASTATIN SODIUM 20 MG TAB PO SCH (23:36)
[2019-03-09] MEDS: LACTULOSE 20 GM/30 ML CUP PO SCH ×2 (06:47→21:18)
[2019-03-09] MEDS: FERROUS SULFATE 325 MG TAB PO SCH (07:39)
[2019-03-09] MEDS: FUROSEMIDE 40 MG TAB PO SCH ×2 (07:39→15:32)
[2019-03-09] MEDS: MORPHINE SULFATE ER 15 MG TABLET PO SCH ×3 (07:39→22:25)
[2019-03-09] MEDS: METOPROLOL SUCCINATE (ER) 25 MG TAB.ER.24H PO SCH (07:39)
[2019-03-09] MEDS: SPIRONOLACTONE 25 MG TAB PO SCH (07:40)
[2019-03-09] MEDS: DOCUSATE 100 MG CAP PO SCH ×2 (07:40→22:25)
[2019-03-09] MEDS: MIDODRINE 5 MG TAB PO SCH ×3 (07:40→17:01)
[2019-03-09] MEDS: PANTOPRAZOLE 40 MG TABLET PO SCH ×2 (07:40→15:32)
[2019-03-09] MEDS: PIPERACILLIN-TAZOBACTAM 3.375 GM in SODIUM CHLORIDE 0.9% 100 ML IVPB SCH ×2 (08:27→15:33)
[2019-03-09] MEDS ORDERED: ONDANSETRON 4 MG/2 ML VIAL IVP PRN (08:55)
[2019-03-09 09:16] LABS: Anion Gap 8 mmol/L; Blood Urea Nitrogen 24 mg/dL (9-20); Calcium 8.9 mg/dL (8.4-10.2); Carbon Dioxide 32 mmol/L (22-30); Chloride 94 mmol/L (98-107); Glucose 86 mg/dL (74-99); Potassium 4.5 mmol/L (3.5-5.1); Sodium 134 mmol/L (137-145)
[2019-03-09 09:41] LABS: Anisocytosis Slight; Basophils # (A) 0.1 k/uL (0-0.2); Basophils % (A) 0 %; Eosinophils # (A) 0.2 k/uL (0-0.7); Eosinophils % (A) 1 %; HCT 37.8 % (39.0-53.0); HGB 11.7 gm/dL (13.0-17.5); Lymphocytes # (A) 2.4 k/uL (1.0-4.8); Lymphocytes % (A) 17 %; MCH 25.9 pg (25.0-35.0); MCV 83.4 fL (80.0-100.0); Mean Platelet Volume 6.9; Monocytes # (A) 0.7 k/uL (0-1.0); Monocytes % (A) 5 %; Neutrophils # (A) 10.4 k/uL (1.3-7.7); Neutrophils % (A) 75 %; Platelet Count 499 k/uL (150-450); RBC 4.53 m/uL (4.30-5.90); RDW 18.1 % (11.5-15.5)
[2019-03-09] MEDS: METHOCARBAMOL 500 MG TAB PO SCH ×2 (15:36→22:25)
[2019-03-09] MEDS: PRAVASTATIN SODIUM 20 MG TAB PO SCH (22:25)
[2019-03-10] MEDS: PIPERACILLIN-TAZOBACTAM 3.375 GM in SODIUM CHLORIDE 0.9% 100 ML IVPB SCH ×4 (00:21→23:47)
--- NOTE | 2019-03-10 01:53 | P.PN ---
Subjective Progress Note Date: 03/09/19 Principal diagnosis: Intra-abdominal abscess Status post IR guided drainage 63-year-old male with a known history of hypertension, hyperlipidemia, history of liver cirrhosis and other multiple medical problems was admitted to the hospital with abdominal pain. Patient was found have intra-abdominal abscess and focal ascites. Patient had IR guided aspiration of 690 mL fluid done on 03/04/2019. Fluid cultures growing E. coli. Patient is currently on IV antibiotics in the form of Zosyn. ID is following. Patient may need PICC line for long-term antibiotics, likely ceftriaxone and Flagyl. Currently abdominal pain is better. No fever. No chest pain or shortness of breath. WBC count is elevated at 22 on 03/04/2090. Repeat CBC will be done tomorrow. ID is following. 03/08/2019 Patient is seen and evaluated in room at bedside; continues to have drainage at catheter site; INR to evaluate patient for further recommendations; patient has a central venous access and is to be discharged home on IV antibiotics of IDs recommendations once stable 03/09/2019 Patient is seen and evaluated in room at bedside; patient denies any particular complaints; continues to complain of drainage around the catheter site Vital signs are reviewed and stable temperature of 98.7, pulse 70, respirations 16 and blood pressure of 106/65 Labs review show white blood count of 14, hemoglobin 11.7; chemical profile sodium 134, potassium 4.5, BUN/creatinine of 20/0.81 Patient will continue IV antibiotics per ID recommendations; currently on IV Zosyn which will be transitioned to IV ceftriaxone and Flagyl at time of discharge Objective - Vital Signs Vital signs: Vital Signs Temp 98.7 F 03/09/19 14:27 Pulse 70 03/09/19 14:27 Resp 18 03/09/19 15:24 BP 106/65 03/09/19 14:27 Pulse Ox 96 03/09/19 14:27 Intake & Output 03/08/19 03/09/19 03/09/19 18:59 06:59 18:59 Intake Total 540 Output Total 1200 475 300 Balance -1200 65 -300 Weight 77.7 kg Intake: Oral 540 Output: Drainage 200 275 Right Abdomen 200 275 Urine 1000 200 200 Emesis 100 Other: Voiding Method Toilet Urinal # Voids 6 2 - Exam - Constitutional General appearance: Present: average body habitus, cooperative, no acute distress - EENT Eyes: Present: anicteric sclerae, EOMI, PERRLA, normal appearance ENT: Present: hearing grossly normal, normal oropharynx Ears: bilateral: normal - Neck Neck: Present: normal ROM. Absent: lymphadenopathy, rigidity, thyromegaly Carotids: negative: bruit present Thyroid: bilateral: normal size, negative: enlarged, nodule - Respiratory Respiratory: bilateral: CTA, negative: rales, rhonchi, wheezing - Cardiovascular Rhythm: regular Heart sounds: normal: S1, S2 Abnormal Heart Sounds: Absent: systolic murmur, diastolic murmur - Gastrointestinal General gastrointestinal: Present: normal bowel sounds, soft. Absent: distended, organomegaly, tenderness - Genitourinary Genitourinary Comment(s): deferred - Integumentary Integumentary: Present: normal turgor. Absent: jaundiced, rash, ulcer - Neurologic Neurologic: Present: CNII-XII intact. Absent: focal deficits - Musculoskeletal Musculoskeletal: Present: gait normal, strength equal bilaterally - Psychiatric Psychiatric: Present: A&O x's 3, appropriate affect, intact judgment & insight - Labs CBC & Chem 7: 03/09/19 07:24 03/09/19 07:24 Labs: Abnormal Lab Results - Last 24 Hours (Table) 03/09/19 03/09/19 Range/Units 07:24 07:24 WBC 14.0 H (3.8-10.6) k/uL Hgb 11.7 L (13.0-17.5) gm/dL Hct 37.8 L (39.0-53.0) % RDW 18.1 H (11.5-15.5) % Plt Count 499 H (150-450) k/uL Neutrophils # 10.4 H (1.3-7.7) k/uL Sodium 134 L (137-145) mmol/L Chloride 94 L (98-107) mmol/L Carbon Dioxide 32 H (22-30) mmol/L BUN 24 H (9-20) mg/dL Assessment and Plan Assessment: Diffuse abdominal pain secondary to loculated intra-abdominal abscess status post IR guided drainage neck and possible sepsis. E. coli fluid cultures positive. Liver cirrhosis secondary to alcohol abuse E. coli and the cultures History of paracentesis History of SBP History of coronary artery Chronic CHF with a fraction unknown GERD Hypertension Anxiety/depression Ongoing nicotine addiction CODE STATUS is DO NOT RESUSCITATE/DO NOT INTUBATE Patient remains on IV antibiotics in form of IV Zosyn; fluid culture did show E. coli sensitive to Zosyn; IDs following and recommending PICC line placement for prolonged IV antibiotic course which will be transitioned to Rocephin and Flagyl at the time of discharge Time with Patient: Greater than 30
[2019-03-10] MEDS: LACTULOSE 20 GM/30 ML CUP PO SCH ×2 (07:05→21:43)
[2019-03-10] MEDS: SPIRONOLACTONE 25 MG TAB PO SCH (07:35)
[2019-03-10] MEDS: MIDODRINE 5 MG TAB PO SCH ×3 (07:35→18:29)
[2019-03-10] MEDS: DOCUSATE 100 MG CAP PO SCH ×2 (07:35→21:43)
[2019-03-10] MEDS: METOPROLOL SUCCINATE (ER) 25 MG TAB.ER.24H PO SCH (07:35)
[2019-03-10] MEDS: FERROUS SULFATE 325 MG TAB PO SCH (07:35)
[2019-03-10] MEDS: FUROSEMIDE 40 MG TAB PO SCH ×2 (07:36→16:34)
[2019-03-10] MEDS: PANTOPRAZOLE 40 MG TABLET PO SCH ×2 (07:36→16:35)
[2019-03-10] MEDS: MORPHINE SULFATE ER 15 MG TABLET PO SCH ×3 (07:36→23:46)
[2019-03-10 08:51] LABS: Anisocytosis Slight; HCT 40.9 % (39.0-53.0); HGB 12.4 gm/dL (13.0-17.5); Hypochromasia Slight; MCH 25.4 pg (25.0-35.0); MCHC 30.3 g/dL (31.0-37.0); MCV 83.6 fL (80.0-100.0); Platelet Count 556 k/uL (150-450); RDW 18.9 % (11.5-15.5)
[2019-03-10 08:56] LABS: Anion Gap 7 mmol/L; Blood Urea Nitrogen 23 mg/dL (9-20); Calcium 9.7 mg/dL (8.4-10.2); Carbon Dioxide 33 mmol/L (22-30); Chloride 97 mmol/L (98-107); Glucose 97 mg/dL (74-99); Potassium 4.6 mmol/L (3.5-5.1); Sodium 137 mmol/L (137-145)
[2019-03-10 09:33] LABS: Eosinophils # (M) 0.36 k/uL (0-0.7); Lymphocytes # (M) 3.48 k/uL (1.0-4.8); Monocytes # (M) 0.72 k/uL (0-1.0); Neutrophils # (M) 7.44 k/uL (1.3-7.7); Neutrophils % (M) 62 %; Nucleated Red Blood Cells 0 /100 WBC (0-0); Total Cells Counted 100
[2019-03-10 09:35] LABS: Target Cells Present
--- NOTE | 2019-03-10 12:29 | P.PN ---
Progress Note - Text Progress Note Date: 03/09/19 PROGRESS NOTE DATE OF SERVICE: 03/09/2019 REASON FOR FOLLOWUP: Abdominal abscess. INTERVAL HISTORY: The patient remains to be afebrile. The patient is breathing comfortably. the patient denies any worsening abdominal pain. still have some drainage around his drainage catheter. No chest pain, shortness of breath or cough. PHYSICAL EXAMINATION: Blood pressure 102/65 with a pulse of 67, temperature 97.8. He is 97% on room air. General description is an elderly male lying in bed in no distress. RESPIRATORY SYSTEM: Unlabored breathing. Clear to auscultation anteriorly. HEART: S1, S2. Regular rate and rhythm. ABDOMEN: Soft. Slightly distended. mimimal drainage around the drainage catheter with purulent drainage in the bag. LABS: Hemoglobin is 11, white count 14, BUN of 24, creatinine 0.82. DIAGNOSTIC IMPRESSION AND PLAN: Patient with abdominal abscess, status post CT-guided drainage; now seems to have a problem with drainage around the catheter. The patient is currently covered with Zosyn. He did got midline for outpatient IV antibiotic , which will be in the form of Rocephin and Flagyl , once this drainage around the catheter problem is resolved. Continue with supportive care.
[2019-03-10 13:09] VITALS: BMI 24.5
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
[2019-03-10] MEDS: METHOCARBAMOL 500 MG TAB PO SCH ×2 (16:34→21:45)
--- NOTE | 2019-03-10 18:17 | PN ---
PROGRESS NOTE DATE OF SERVICE: 03/10/2019. REASON FOR FOLLOWUP: Abdominal abscess. INTERVAL HISTORY: The patient is currently afebrile. The patient has been breathing comfortably. Denies having any chest pain. No cough. No worsening abdominal pain. No nausea, no vomiting or any diarrhea. PHYSICAL EXAMINATION: Blood pressure is 103/63 with a pulse of 75, temp 97.9, he is 97% on room air. General description is an elderly male up in the bed in no distress. Respiratory system: Unlabored breathing, clear to auscultation anteriorly. Heart S1, S2. Regular rate and rhythm. Abdomen soft. No tenderness. Drainage catheter did have purulent drainage. LABS: Hemoglobin 12.4, white count 12,000, BUN of 23, creatinine 0.73. DIAGNOSTIC IMPRESSION AND PLAN: Patient with abdominal abscess status post CT-guided drainage. Still has significant purulent secretions, white count showing a downward trend. Patient this time to continue with Zosyn. We will obtain a repeat CT abdomen and pelvis to follow up on the abscess. Monitor his clinical course closely. Continue supportive care. MMODL / IJN: [id number] /
[2019-03-10] MEDS: PRAVASTATIN SODIUM 20 MG TAB PO SCH (21:43)
--- NOTE | 2019-03-10 23:23 | PN ---
PROGRESS NOTE DATE OF SERVICE: 03/10/2019 HISTORY: This 63-year-old gentleman with abdominal abscesses, had a RENEE drain. Significant drainage still being noted and the culture showed E coli which was multiresistant. The output drainage ranged from 260, 120, 725, 475 and 225. The patient being closely monitored at this time. White count is elevated to 12. Infectious disease is following the patient closely. PAST MEDICAL HISTORY: Reviewed. REVIEW OF SYSTEMS: CARDIOVASCULAR: No angina or palpitations. RESPIRATION: As mentioned earlier. GI as mentioned earlier. : As mentioned earlier. CURRENT MEDICATIONS: Reviewed and include: 1. Colace 200 mg q.h.s. 2. Iron sulfate 320 mg daily. 3. Lasix 40 mg b.i.d. 4. Zestril 25 mg. 6. Robaxin. 7. Toprol-XL 12.5 mg daily. 8. Remeron. 9. MS Contin 15 mg p.o. t.i.d. 10.Protonix. 11.Zosyn 3.375 IV q.8h. 12.MiraLAX. 13.Pravachol. 14.Aldactone. PHYSICAL EXAM: GENERAL: Patient is alert, oriented x3. VITAL SIGNS: Pulse 75, blood pressure 103/62, respirations 15, temperature 97.9, pulse ox 97% on room air. HEENT: Conjunctivae normal. Oral mucosa moist. NECK is no jugular venous distention. No carotid bruit. No lymph node enlargement. CARDIOVASCULAR SYSTEM: S1, S2. RESPIRATORY: Breath sounds diminished in the bases. A few scattered rhonchi and crackles. ABDOMEN: Soft, obese, mild diffuse tenderness and discomfort. Otherwise, no guarding, no rigidity. No mass. Bowel sounds present. LEGS: No edema, no swelling. CENTRAL NERVOUS SYSTEM: No focal deficits. RENEE drain draining purulent secretions. LAB STUDIES: WBC 12, hemoglobin is 12.4, sodium 130, potassium 4.6. ASSESSMENT: 1. Diffuse abdominal pain with loculated intraabdominal abscess status post IR guided drainage with possible sepsis E. coli resistant grown from the cultures. 2. Liver cirrhosis secondary to alcohol abuse. 3. History of abdominal paracentesis. 4. History of spontaneous bacterial peritonitis. 5. History of coronary artery disease. 6. History of congestive heart failure with ejection fraction unknown. 7. Gastroesophageal reflux disease. 8. Hypertension. 9. Anxiety and depression. 10.Ongoing nicotine dependence. 11.NO CODE, NO CPR, NO VENT. 12.Hyponatremia mild. 13.Anemia, normocytic anemia of chronic disease. RECOMMENDATIONS AND DISCUSSION: This 63-year-old gentleman who presented with multiple complex medical issues, we will monitor the patient closely, continue the current medications, management and symptomatic treatment. Recommend continue the broad-spectrum antibiotics. Discussed with Dr. Luna. I would also recommend surgical evaluation. A CT scan of the abdomen pelvis will be also ordered. Guarded prognosis. Further recommendations to follow. See orders for details. Repeat cultures also will be ordered. MMODL / IJN: [id number] / MTDD
[2019-03-11] MEDS: IOPAMIDOL-300 CONTRAST 30 ML VIAL (ORAL USE) PO PRN ×2 (06:27→07:32)
[2019-03-11] MEDS: FERROUS SULFATE 325 MG TAB PO SCH (07:28)
[2019-03-11] MEDS: MIDODRINE 5 MG TAB PO SCH ×3 (07:28→17:14)
[2019-03-11] MEDS: DOCUSATE 100 MG CAP PO SCH ×2 (07:28→23:04)
[2019-03-11] MEDS: FUROSEMIDE 40 MG TAB PO SCH ×2 (07:28→16:13)
[2019-03-11] MEDS: METOPROLOL SUCCINATE (ER) 25 MG TAB.ER.24H PO SCH (07:29)
[2019-03-11] MEDS: SPIRONOLACTONE 25 MG TAB PO SCH (07:31)
[2019-03-11] MEDS: PANTOPRAZOLE 40 MG TABLET PO SCH ×2 (07:31→16:13)
[2019-03-11] MEDS: PIPERACILLIN-TAZOBACTAM 3.375 GM in SODIUM CHLORIDE 0.9% 100 ML IVPB SCH ×3 (07:32→23:04)
[2019-03-11] MEDS: LACTULOSE 20 GM/30 ML CUP PO SCH ×2 (07:32→23:03)
[2019-03-11] MEDS: MORPHINE SULFATE ER 15 MG TABLET PO SCH ×3 (07:34→23:04)
[2019-03-11 07:53] LABS: Anion Gap 5 mmol/L; Blood Urea Nitrogen 25 mg/dL (9-20); Calcium 9.5 mg/dL (8.4-10.2); Carbon Dioxide 36 mmol/L (22-30); Chloride 96 mmol/L (98-107); Glucose 94 mg/dL (74-99); Potassium 4.4 mmol/L (3.5-5.1); Sodium 137 mmol/L (137-145)
[2019-03-11 08:13] LABS: Anisocytosis Slight; Basophils # (A) 0.1 k/uL (0-0.2); Basophils % (A) 1 %; Eosinophils # (A) 0.2 k/uL (0-0.7); Eosinophils % (A) 2 %; HCT 40.1 % (39.0-53.0); HGB 12.2 gm/dL (13.0-17.5); Hypochromasia Slight; Lymphocytes # (A) 2.8 k/uL (1.0-4.8); Lymphocytes % (A) 21 %; MCH 25.8 pg (25.0-35.0); MCHC 30.5 g/dL (31.0-37.0); MCV 84.5 fL (80.0-100.0); Mean Platelet Volume 6.9; Monocytes # (A) 0.5 k/uL (0-1.0); Monocytes % (A) 4 %; Neutrophils # (A) 9.5 k/uL (1.3-7.7); Neutrophils % (A) 72 %; Platelet Count 504 k/uL (150-450); RBC 4.75 m/uL (4.30-5.90); RDW 19.1 % (11.5-15.5); WBC 13.2 k/uL (3.8-10.6)
[2019-03-11 08:36] LABS: Target Cells Present
--- NOTE | 2019-03-11 08:42 | CT ---
EXAMINATION TYPE: CT ChestAbdPelvis wo con DATE OF EXAM: 03/11/2019 COMPARISON: 02/27/2019 HISTORY: Abdomianl abscess-rule out fistula CT DLP: 600.5 mGycm. Automated Exposure Control for Dose Reduction was Utilized. TECHNIQUE: CT scan of the thorax, abdomen and pelvis is performed without IV contrast. FINDINGS: LUNGS: Pleural thickening calcifications are compatible with asbestosis related disease. No consolida tive pneumonia, pleural effusion or pneumothorax. Correlate for gynecomastia. MEDIASTINUM: There are no greater than 1 cm hilar or mediastinal lymph nodes. The heart is enlarged and there is dense coronary artery calcification.. .Atherosclerotic change of the aorta. OTHER: No additional significant abnormality is seen. LIVER/GB: Lack of contrast limits assessment for mass. Gallbladder not well seen.. Liver appears enla rged. Correlate for diffuse hepatocellular disease. PANCREAS: No significant abnormality is seen. SPLEEN: Spleen measures 15.6 cm and is enlarged.. ADRENALS: No significant abnormality is seen. KIDNEYS: No hydronephrosis or nephrolithiasis. Multiple hypodensities within the kidneys are stable m ost typical of cysts.. BOWEL: Bowel gas pattern nonspecific.. Could not exclude a localized area of narrowing involving the rectosigmoid junction. LYMPH NODES: No greater than 1cm abdominal or pelvic lymph nodes are appreciated. OSSEOUS STRUCTURES: Multilevel hypertrophic changes of vertebral column. Arthropathy of the hips. Les ion involving the proximal femur may be postsurgical should be correlated clinically.. OTHER: There is a large loculated fluid collection in the anterior abdomen which contains a percutane ous drain measuring 20 cm. There also appears to be thickening of the peritoneum surrounding the live r is spleen and mesentery. Omental caking or metastasis in the differential diagnosis. There is addit ional fluid collection seen posterior to the stomach which is poorly capsulated on axial image 57 thr ough 59. This may be slightly increased from prior exam. Small amount of fluid is seen in the right i nguinal canal. There is soft tissue calcifications gluteal region. IMPRESSION: 1. Large encapsulated fluid collection within the anterior abdomen appears reduced in size slightly n ow measuring 20 cm and previously measured 28 cm. Drainage catheter noted in position. 2. Persistent omental caking and thickening omental metastasis in the differential diagnosis. Periton itis also a consideration. Correlate clinically. 3. Hepatosplenomegaly correlate for hepatocellular disease. 4. There is a localized narrowing of the rectosigmoid junction. This retrospectively appears be prese nt on the prior exam correlate clinically if necessary with direct visualization to exclude mucosal l esion.
--- NOTE | 2019-03-11 12:38 | P.PN ---
Subjective Progress Note Date: 03/11/19 CHIEF COMPLAINT: Abdominal abscess HISTORY OF PRESENT ILLNESS: 63-year-old male who is admitted to the hospital due to abdominal abscess. Patient had repeat CAT scan performed this morning revealing enlarging Fluid Collection within the Anterior Abdomen Appears Reduced in Size Now Measuring 20 Cm Previously Measuring 28 cm. Drainage Catheter Noted in Position. Localized narrowing of the rectosigmoid junction. Patient reports abdominal pain is tolerable. Denies nausea or vomiting. Tolerating diet. WBC 13.2 PHYSICAL EXAM: VITAL SIGNS: Reviewed. GENERAL: Well-developed in no acute distress. HEENT: No sclera icterus. Extraocular movements grossly intact. Moist buccal mucosa. Head is atraumatic, normocephalic. ABDOMEN: Soft. Nondistended. Mild tenderness. Drainage bag to right lower quadrant with purulent drainage. NEUROLOGIC: Alert and oriented. Cranial nerves II through XII grossly intact. ASSESSMENT: 1. Abdominal abscess PLAN: Continue antibiotics. Continue to monitor WBC. Infectious disease is following. No surgical intervention recommended at this time Patient will require outpatient colonoscopy in the future to evaluate narrrowing of rectosigmoid junction visualized on CT scan Nurse practitioner note has been reviewed by physician. Signing provider agrees with the documented findings, assessment, and plan of care. Objective - Vital Signs Vital signs: Vital Signs Temp 98 F 03/11/19 09:00 Pulse 91 03/11/19 09:00 Resp 12 03/11/19 09:00 BP 112/74 03/11/19 09:00 Pulse Ox 98 03/11/19 09:00 Intake & Output 03/10/19 03/11/19 03/11/19 18:59 06:59 18:59 Intake Total 960 760 Output Total 180 275 90 Balance 780 485 -90 Weight 73 kg 70.9 kg Intake: Intake, IV Titration 100 Amount Piperacillin-Tazobactam 3 100 .375 gm In Sodium Chloride 0.9% 100 ml @ 25 mls/hr IVPB Q8HR [facility] Rx# :[id number] Oral 960 660 Output: Drainage 180 275 90 Right Abdomen 180 275 90 Other: # Voids 3 2 - Labs CBC & Chem 7: 03/11/19 06:40 03/11/19 06:40 Labs: Abnormal Lab Results - Last 24 Hours (Table) 03/11/19 03/11/19 Range/Units 06:40 06:40 WBC 13.2 H (3.8-10.6) k/uL Hgb 12.2 L (13.0-17.5) gm/dL MCHC 30.5 L (31.0-37.0) g/dL RDW 19.1 H (11.5-15.5) % Plt Count 504 H (150-450) k/uL Neutrophils # 9.5 H (1.3-7.7) k/uL Chloride 96 L (98-107) mmol/L Carbon Dioxide 36 H (22-30) mmol/L BUN 25 H (9-20) mg/dL Microbiology - Last 24 Hours (Table) 03/10/19 21:45 Gram Stain - Preliminary Aspirate Body Fluid Culture - Preliminary
--- NOTE | 2019-03-11 12:50 | PN ---
PROGRESS NOTE DATE OF SERVICE: 03/11/2019 This 63-year-old gentleman who was admitted with abdominal abscess, suspected localized peritonitis. The patient had a RENEE drain which is draining rather copious amount of fluid last night. Yesterday the drainage was around 455 mL which is rather purulent and with bilious tinged at this time. Dr. Luna and Surgery is following the patient closely. A CAT scan of the chest, abdomen and pelvis repeated today this morning which showed large encapsulated fluid collection within the anterior abdominal wall, reduced in size approximately 20 cm and previously measured 28 cm. Drainage catheter is noted in position and persistent omental changes and was noted, possible peritonitis, hepatosplenomegaly was also noted, also localized narrowing of the rectosigmoid junction. The patient is on broad IV antibiotics. Infectious Disease is following the patient closely also. The cultures showed E coli which is rather resistant also. PAST MEDICAL HISTORY: Reviewed. REVIEW OF SYSTEMS: CARDIOVASCULAR SYSTEM: No angina. RESPIRATORY SYSTEM: As mentioned earlier. GI: As mentioned earlier. : No dysuria. NERVOUS SYSTEM: No numbness or weakness. MEDICATIONS: Current medications are reviewed and include: 1. Colace 200 mg p.o. q.h.s. and 100 mg p.o. daily. 2. Iron sulfate 325 mg p.o. daily. 3. Lasix 40 mg p.o. b.i.d. 4. Vistaril 25 mg t.i.d. 5. Cephulac 20 grams p.o. b.i.d. 6. Robaxin 500 mg p.o. b.i.d. 7. Toprol-XL 12.5 mg daily. 8. ProAmatine 5 mg a.c. t.i.d. 9. Remeron p.r.n. 10.MS Contin 15 mg p.o. t.i.d. 11.Narcan 0.2 q.2 p.r.n. 12.Zofran. 13.Protonix. 14.Zosyn 3.375 IV q.8. 15.MiraLAX. 16.Pravachol 20 mg p.o. q.h.s. 17.Aldactone 100 mg p.o. daily. PHYSICAL EXAMINATION: Patient is alert and oriented x3. Pulse 76, blood pressure 99/68, respiration 17, temperature 97.8, pulse ox 93% on room air. HEENT: Conjunctivae normal. Oral mucosa moist. NECK: No jugular venous distention. No carotid bruit. No lymph node enlargement. CARDIOVASCULAR: S1, S2 muffled. No S3, no S4. RESPIRATORY: Breath sounds diminished at the bases. A few scattered rhonchi and crackles. ABDOMEN: Soft, mild diffuse distention. Mild diffuse tenderness also present. No guarding. No rigidity. No mass palpable. Drainage present with some leaking also noted. Otherwise drainage tube is present. Bowel sounds diminished. LEGS: No edema. No swelling. NERVOUS SYSTEM: Higher functions as mentioned earlier. Moves all 4 limbs. Mild diffuse weakness. LYMPHATICS: No lymphadenopathy of the neck, axillae or groin. SKIN: No ulcer, rash or bleeding. JOINTS: No active deforming arthropathy. LABS: WBC 13.2, hemoglobin is 12.2 sodium 137, potassium 4.4. ASSESSMENT: 1. Diffuse abdominal pain with localized intraabdominal abscess, status post IR guided drainage with possible sepsis. 2. Escherichia coli resistant grown from the cultures. 3. Increased WBC, persistent. 4. Liver cirrhosis secondary to alcohol abuse. 5. History of abdominal paracentesis. 6. History of spontaneous bacterial peritonitis. 7. History of coronary artery disease. 8. History of congestive heart failure with ejection fraction unknown. 9. Gastroesophageal reflux disease. 10.Hypertension. 11.Anxiety, depression. 12.Continued ongoing nicotine dependence. 13.Gait dysfunction. 14.Hyponatremia mild. 15.Anemia, normocytic anemia of chronic disease. 16.NO CODE, NO CPR, NO VENT. RECOMMENDATIONS AND DISCUSSION: This 63-year-old gentleman presented with multiple complex medical issues, we will monitor the patient closely. Continue the current medications. Continue symptomatic treatment. The patient is on IV Zosyn. Will continue with broad-spectrum IV antibiotics and continue drainage. Surgery is following the patient closely and the findings of the most recent CT scan was noted above. The patient also complaining of generalized tiredness and weakness also. Overall prognosis extremely guarded because of multiple complex medical issues. Repeat culture has been sought and I would also recommend PT, OT evaluation and possible ECF rehab also. Discussed with the patient. Discussed with staff. Further recommendations to follow. Guarded prognosis. MMODL / IJN: [id number] / [facility]
[2019-03-11] MEDS: METHOCARBAMOL 500 MG TAB PO SCH ×2 (16:13→23:04)
--- NOTE | 2019-03-11 16:27 | PN ---
PROGRESS NOTE DATE OF SERVICE: 03/11/2019 REASON FOR FOLLOWUP: Abdominal abscess. INTERVAL HISTORY: The patient is currently afebrile. The patient is breathing comfortably. Denies having any chest pain. No shortness of breath or cough. Abdominal pain has improved. Did have a bowel movement. PHYSICAL EXAMINATION: Blood pressure 112/74 with a pulse of 91, temperature 98. He is 98% on room air. General description is an elderly male up in the bed in no distress. RESPIRATORY SYSTEM: Unlabored breathing. Clear to auscultation anteriorly. HEART: S1, S2. Regular rate and rhythm. ABDOMEN: Soft. No tenderness. Drainage catheter with purulent drainage. LABS: Hemoglobin is 12.2, white count 13.2 with a BUN of 25, creatinine 0.85. Patient did have a CT of abdomen and pelvis which shows slight decrease in the size of the abdominal abscess down to 20 cm from 28 cm previously. DIAGNOSTIC IMPRESSION AND PLAN: Patient with abdominal abscess, status post CT-guided drainage. Still has significant purulent . With this extensive infection, he will likely need IV antibiotic on discharge. Currently on Zosyn; to continue. Surgery has seen the patient with recommendation. Continue with supportive care. MMODL / IJN: [id number] /
[2019-03-11] MEDS: PRAVASTATIN SODIUM 20 MG TAB PO SCH (23:04)
[2019-03-12] MEDS: DOCUSATE 100 MG CAP PO SCH (07:19)
[2019-03-12] MEDS: METOPROLOL SUCCINATE (ER) 25 MG TAB.ER.24H PO SCH (07:19)
[2019-03-12] MEDS: FERROUS SULFATE 325 MG TAB PO SCH (07:19)
[2019-03-12] MEDS: FUROSEMIDE 40 MG TAB PO SCH ×2 (07:19→15:19)
[2019-03-12] MEDS: MORPHINE SULFATE ER 15 MG TABLET PO SCH ×2 (07:19→15:19)
[2019-03-12] MEDS: PANTOPRAZOLE 40 MG TABLET PO SCH ×2 (07:20→15:19)
[2019-03-12] MEDS: MIDODRINE 5 MG TAB PO SCH ×3 (07:20→17:31)
[2019-03-12] MEDS: PIPERACILLIN-TAZOBACTAM 3.375 GM in SODIUM CHLORIDE 0.9% 100 ML IVPB SCH ×2 (07:20→15:20)
[2019-03-12] MEDS: SPIRONOLACTONE 25 MG TAB PO SCH (07:20)
[2019-03-12] MEDS: LACTULOSE 20 GM/30 ML CUP PO SCH (07:23)
[2019-03-12 08:40] LABS: Anion Gap 7 mmol/L; Blood Urea Nitrogen 24 mg/dL (9-20); Calcium 9.8 mg/dL (8.4-10.2); Carbon Dioxide 36 mmol/L (22-30); Chloride 92 mmol/L (98-107); Glucose 108 mg/dL (74-99); Potassium 4.7 mmol/L (3.5-5.1); Sodium 135 mmol/L (137-145)
[2019-03-12 08:47] LABS: Anisocytosis Slight; Basophils # (A) 0.1 k/uL (0-0.2); Basophils % (A) 1 %; Eosinophils # (A) 0.2 k/uL (0-0.7); Eosinophils % (A) 2 %; HCT 42.3 % (39.0-53.0); HGB 12.9 gm/dL (13.0-17.5); Hypochromasia Slight; Lymphocytes # (A) 5.1 k/uL (1.0-4.8); Lymphocytes % (A) 34 %; MCHC 30.6 g/dL (31.0-37.0); MCV 85.2 fL (80.0-100.0); Mean Platelet Volume 7.1; Monocytes # (A) 0.6 k/uL (0-1.0); Monocytes % (A) 4 %; Neutrophils % (A) 59 %; Platelet Count 539 k/uL (150-450); RBC 4.96 m/uL (4.30-5.90); RDW 19.5 % (11.5-15.5); WBC 15.3 k/uL (3.8-10.6)
[2019-03-12 09:46] LABS: Poikilocytosis (M) Present; Target Cells Present
--- NOTE | 2019-03-12 11:27 | P.PN ---
Subjective Progress Note Date: 03/12/19 CHIEF COMPLAINT: Abdominal abscess HISTORY OF PRESENT ILLNESS: 63-year-old male who is admitted to the hospital due to abdominal abscess. Patient reports abdominal pain is tolerable. Denies nausea or vomiting. Tolerating diet. WBC 15.2 PHYSICAL EXAM: VITAL SIGNS: Reviewed. GENERAL: Well-developed in no acute distress. HEENT: No sclera icterus. Extraocular movements grossly intact. Moist buccal mucosa. Head is atraumatic, normocephalic. ABDOMEN: Soft. Nondistended. Mild tenderness. Drainage bag to right lower quadrant with purulent drainage. NEUROLOGIC: Alert and oriented. Cranial nerves II through XII grossly intact. ASSESSMENT: 1. Abdominal abscess PLAN: Continue antibiotics. Continue to monitor WBC. Infectious disease is following. No surgical intervention recommended at this time Patient will require outpatient colonoscopy in the future to evaluate narrrowing of rectosigmoid junction visualized on CT scan We will sign off. Please reconsult if needed. Nurse practitioner note has been reviewed by physician. Signing provider agrees with the documented findings, assessment, and plan of care. Objective - Vital Signs Vital signs: Vital Signs Temp 97.7 F 03/12/19 07:18 Pulse 78 03/12/19 08:00 Resp 16 03/12/19 08:00 BP 124/78 03/12/19 07:18 Pulse Ox 97 03/12/19 07:18 Intake & Output 03/11/19 03/12/19 03/12/19 18:59 06:59 18:59 Intake Total 240 Output Total 180 750 175 Balance -180 -510 -175 Weight 70.6 kg Intake: Oral 240 Output: Drainage 180 300 Right Abdomen 180 300 Urine 450 175 Other: Voiding Method Toilet Urinal # Voids 2 4 - Labs CBC & Chem 7: 03/12/19 07:51 03/12/19 07:51 Labs: Abnormal Lab Results - Last 24 Hours (Table) 03/12/19 03/12/19 Range/Units 07:51 07:51 WBC 15.3 H (3.8-10.6) k/uL Hgb 12.9 L (13.0-17.5) gm/dL MCHC 30.6 L (31.0-37.0) g/dL RDW 19.5 H (11.5-15.5) % Plt Count 539 H (150-450) k/uL Neutrophils # 9.0 H (1.3-7.7) k/uL Lymphocytes # 5.1 H (1.0-4.8) k/uL Sodium 135 L (137-145) mmol/L Chloride 92 L (98-107) mmol/L Carbon Dioxide 36 H (22-30) mmol/L BUN 24 H (9-20) mg/dL Glucose 108 H (74-99) mg/dL Microbiology - Last 24 Hours (Table) 03/10/19 13:38 Blood Culture - Preliminary Blood No Growth after 24 hours 03/10/19 21:45 Gram Stain - Preliminary Aspirate Body Fluid Culture - Preliminary
--- NOTE | 2019-03-12 12:12 | P.DS ---
Providers Date of admission: 03/03/19 14:41 Attending physician: Narendra Prater Consults: 03/03/19 15:54 Consult Physician Routine Consulting Provider: Lexi Mercedes Consult Reason/Comments: antibiotics Do you want consulting provider notified?: Yes 03/10/19 12:28 Consult Physician Routine Consulting Provider: Hakeem Flores Consult Reason/Comments: abdominal abscess?? Do you want consulting provider notified?: Yes Primary care physician: Stated None Hospital Course: Final diagnosis Diffuse abdominal pain with a localized intra-abdominal abscesses status post IR guided drainage with a possible sepsis present on admission. Persistent intra-abdominal abscess with the drainage significant. E. coli resistant grown from the cultures. Increased WBC persistent Liver cirrhosis secondary to alcoholic abuse. History abdominal paracentesis. History of for recent spontaneous bacterial peritonitis. History of coronary artery disease History of CHF. Ejection fraction unknown. GERD Hypertension Anxiety depression Continued ongoing record dependence Gait dysfunction Hyponatremia mild Anemia normocytic anemia of chronic disease Discharge disposition The patient is being transferred to [facility] in a stable condition with a guarded prognosis. Total time taken 35 minutes. History of present illness This 63-year-old gentleman with a past medical history of multiple medical problems as mentioned earlier being followed by Dr. Hugo Thompson in the outpatient setting was diagnosed have spontaneous bacterial peritonitis recently. Patient was treated with antibiotics. However the patient presented to Dr. mercedes, infectious infection disease specialist with the persistently high WBC. A CAT scan of the abdomen and pelvis showed a evidence of intra-abdominal abscess. Interventional radiology performed the drainage. The patient had a purulent drainage significant amount up to 450 ml in 24 hrs despite having received IV Zosyn for several days. resistant E. coli was cultured from the drainage. Patient was also seen by Dr. mercedes during the hospitalization. Because of her lack of improvement I discussed the case with [facility] hospitalist with Dr. Hennessy and the patient be transferred in a stable condition with a guarded prognosis. On exam vitals are stable. Cardio S1 and S2 normal. Respirator system clear to auscultation. Abdomen soft mild diffuse discomfort on palpation. Mild distention. No guarding no rigidity. Drain in place draining purulent discharge. Nervous system no focal deficit. Please refer to the medication reconciliation sheet for the current medications. Plan - Discharge Summary Discharge Rx Participant: No New Discharge Prescriptions: No Action Spironolactone 100 mg PO DAILY@0700 Pravastatin Sodium [Pravachol] 20 mg PO HS@2300 Pantoprazole [Protonix] 40 mg PO BID@0700,1500 Midodrine [ProAmatine] 5 mg PO TID@0700,1500,2300 Metoprolol Succinate [Toprol XL] 12.5 mg PO DAILY@0700 Morphine Sulfate ER [Ms Contin] 15 mg PO TID@0700,1500,2300 hydrOXYzine PAMOATE [Vistaril] 25 mg PO TID@0700,1500,2300 Ferrous Sulfate [Iron (65 MG Elemental)] 325 mg PO DAILY@0700 Docusate [Colace] 200 mg PO HS@2300 Docusate [Colace] 100 mg PO DAILY@0700 Mirtazapine 30 mg PO HS@2300 Furosemide [Lasix] 40 mg PO BID@0700,1500 Methocarbamol [Robaxin] 500 mg PO BID@1500,2300 Polyethylene Glycol 3350 [Miralax] 17 gm PO DAILY PRN PRN Reason: Constipation Discharge Medication List Metoprolol Succinate [Toprol XL] 12.5 mg PO DAILY@0700 11/26/18 [History] Midodrine [ProAmatine] 5 mg PO TID@0700,1500,2300 11/26/18 [History] Pantoprazole [Protonix] 40 mg PO BID@0700,1500 11/26/18 [History] Pravastatin Sodium [Pravachol] 20 mg PO HS@2300 11/26/18 [History] Spironolactone 100 mg PO DAILY@0700 11/26/18 [History] Docusate [Colace] 100 mg PO DAILY@0700 12/20/18 [History] Docusate [Colace] 200 mg PO HS@2300 12/20/18 [History] Ferrous Sulfate [Iron (65 MG Elemental)] 325 mg PO DAILY@0700 12/20/18 [History] Furosemide [Lasix] 40 mg PO BID@0700,1500 12/20/18 [History] Mirtazapine 30 mg PO HS@2300 12/20/18 [History] Morphine Sulfate ER [Ms Contin] 15 mg PO TID@0700,1500,2300 12/20/18 [History] hydrOXYzine PAMOATE [Vistaril] 25 mg PO TID@0700,1500,2300 12/20/18 [History] Methocarbamol [Robaxin] 500 mg PO BID@1500,2300 01/06/19 [History] Polyethylene Glycol 3350 [Miralax] 17 gm PO DAILY PRN 03/03/19 [History] Follow up Appointment(s)/Referral(s): Hakeem Flores MD [STAFF PHYSICIAN] - 1 Week Activity/Diet/Wound Care/Special Instructions: Call process control board operator before discharging patient for outpatient drain instruction, follow up appointment
--- NOTE | 2019-03-12 13:34 | PN ---
PROGRESS NOTE DATE OF SERVICE: 03/12/2019 REASON FOR FOLLOWUP: Abdominal abscess. INTERVAL HISTORY: The patient is currently afebrile, has been breathing comfortably. Denies having any chest pain or any cough. No worsening abdominal pain, still have good output in his drainage catheter. Patient is slightly anxious about getting transferred to [facility]. PHYSICAL EXAMINATION: On examination, blood pressure is 124/78 with a pulse of 78, temperature 97.7. He is 97% on room air. General description is an elderly male lying in bed in no distress. RESPIRATORY SYSTEM: Unlabored breathing, clear to auscultation anteriorly. HEART: S1, S2. Regular rate and rhythm. ABDOMEN: Soft, no tenderness. Still has purulent drainage in drainage catheter. LABS: Hemoglobin is 12.9, white count of 15.3 today with a BUN of 24, creatinine 0.90. DIAGNOSTIC IMPRESSION AND PLAN: Patient with abdominal abscess, status post CT-guided drainage. Did have significant amount of drainage with a repeat CT still showing significant amount of fluid collection and white count has shown an upward trend. Discussed the case in detail with the admitting physician. Planning transfer to tertiary care for possible open drainage of this abscess to help this infection. His questions were answered. Keep the patient on Zosyn. The patient will be evaluated by the ID service at that facility. MMODL / IJN: [id number] /
[2019-03-12] MEDS: METHOCARBAMOL 500 MG TAB PO SCH (15:24)
[2019-03-12 19:25] VITALS: BP 101/63; PULSE 73; RESP 17; TEMP 98
== END 2019-03-12 20:15 | disposition short-term general hospital (02) | DRG 871 ==
LOC: 4MS4W 14:41 → 4SSUR 03-06 16:41
PROVIDERS: ADMIT Hospitalist; ATTEND Hospitalist
PROC: 0W9J3ZZ Drainage of Pelvic Cavity, Percutaneous Approach (ICD-10-PCS; 2019-03-04)
PROC: 05HF33Z Insertion of Infusion Device into Left Cephalic Vein, Percutaneous Approach (ICD-10-PCS; principal; 2019-03-07 14:30)
DX: A41.51 Sepsis due to Escherichia coli [E. coli] (principal); K65.1 Peritoneal abscess; C78.6 Secondary malignant neoplasm of retroperitoneum and peritoneum; E87.1 Hypo-osmolality and hyponatremia; K76.6 Portal hypertension; A41.9 Sepsis, unspecified organism; D63.8 Anemia in other chronic diseases classified elsewhere; E78.5 Hyperlipidemia, unspecified; F10.10 Alcohol abuse, uncomplicated; F17.200 Nicotine dependence, unspecified, uncomplicated; F41.9 Anxiety disorder, unspecified; F32.9 Major depressive disorder, single episode, unspecified; G47.00 Insomnia, unspecified; I11.0 Hypertensive heart disease with heart failure; I25.10 Atherosclerotic heart disease of native coronary artery without angina pectoris; I50.9 Heart failure, unspecified; K21.9 Gastro-esophageal reflux disease without esophagitis; K59.00 Constipation, unspecified; K70.31 Alcoholic cirrhosis of liver with ascites; Z66 Do not resuscitate; Z79.899 Other long term (current) drug therapy; Z80.0 Family history of malignant neoplasm of digestive organs; Z80.1 Family history of malignant neoplasm of trachea, bronchus and lung; Z82.49 Family history of ischemic heart disease and other diseases of the circulatory system; Z83.3 Family history of diabetes mellitus; Z79.891 Long term (current) use of opiate analgesic
CPT/HCPCS: 36410; 49405; 71250; 74176; 76937; 76942; 80048; 80053; 81003; 82150; 83605; 83690; 83735; 85025; 85610; 85652; 86140; 87040; 87070; 87075; 87077; 87186; 87205; 88173; 88305; 89050; 94760